=== PATIENT | female | born 1940 | race Caucasian/White ===

== ENCOUNTER 2024-01-02 19:53 | Inpatient (IN) | payer MEDICARE, OTHER, SELFPAY ==
[2024-01-02] VITALS (9 sets, daily range): BP systolic 98–159; BP diastolic 52–79; BMI 30.1; BMI 24.4
[2024-01-02 14:28] LABS: % Basophils 0.1 % (0-2); % Eosinophils 0.2 % (0-6); % Immature Granulocytes 0.4 % (0-0.5); % Monocytes 5.6 % (1.7-9.3); % Neutrophils 87.7 % (42.2-75.2); Absolute Immature Granulocytes 0.1 10^3/uL (0-0.05); Absolute Lymphocytes 0.7 10^3/uL (1.2-3.4); Absolute Monocytes 0.7 10^3/uL (0.1-0.6); Absolute Neutrophils 10.6 10^3/uL (1.4-6.5); Hemoglobin 10.9 g/dL (12.0-16.0); Mean Corp Hgb Conc. 32.1 g/dL (33.0-37.0); Mean Corpuscular Hgb 30.7 pg (27.0-31.0); Mean Corpuscular Volume 95.8 fL (81.0-99.0); Mean Platelet Volume 10.6 fL (7.4-10.4); Nucleated Red Blood Cells % 0 %; Platelet Count 237 10^3/uL (130-400); Red Blood Cell Count 3.55 10^6/uL (4.20-5.40); Red Cell Dist. Width 13.8 % (11.5-14.5); White Blood Cell Count 12.1 10^3/uL (4.8-10.8)
[2024-01-02 14:44] LABS: ALT (SGPT) < 10 U/L (0-35); AST (SGOT) 20 U/L (14-36); Alkaline Phosphatase 70 U/L (38-126); Blood Urea Nitrogen 48 mg/dl (7-17); Calcium 9.5 mg/dl (8.4-10.2); Carbon Dioxide 23 mmol/L (22-30); Chloride 110 mmol/L (98-107); Estimated Creatinine Clearance 23 ml/min; Glucose 111 mg/dl (70-99); Potassium 5.7 mmol/L (3.5-5.1); Sodium 139 mmol/L (135-145); Total Bilirubin 0.4 mg/dl (0.2-1.3); Total Protein 6.9 g/dl (6.3-8.2)
[2024-01-02 14:50] LABS: Urine Albumin 1+ (Neg - Trace); Urine Bilirubin Negative (Negative); Urine Character Very Cloudy (Clear); Urine Color Straw; Urine Glucose Negative (Negative); Urine Ketone Trace (Negative); Urine Leukocyte 2+ (Negative); Urine Nitrite Negative (Negative); Urine Occult Blood 2+ (Negative); Urine Urobilinogen Negative (Neg - 1+)
[2024-01-02 15:25] LABS: Urine Bacteria Few (Negative); Urine Red Blood Cell 0-2 /HPF (0-2); Urine Squamous Cell 16-20 /LPF (Few); Urine White Cell 70-80 /HPF (0-5)
[2024-01-02] MEDS: NSS 250 IV ×2 (16:00→21:16)
[2024-01-02 16:33] LABS: Troponin I 0.045 ng/ml
--- NOTE | 2024-01-02 17:10 | ED.GENMED ---
History of Present Illness
General
Chief Complaint: Abdominal Pain
Source: patient
Exam Limitations: dementia
Time Seen by Provider: 01/02/24 15:03
Nursing documentation reviewed up to this point in time: agreed with
Travel History
Have you had any contact with someone who has COVID-19?: No
Do you have any symptoms of coronavirus? Fever > 100 degrees, chills, cough, shortness of breath, sore throat, loss of taste or smell, muscle aches, or headache?: No
History of Present Illness
History of Present Illness:
83-year-old female with past medical history of dementia previous stroke hypertension hyperlipidemia presenting to the emergency department today with concerns of lower abdominal for multiple hours at her nursing facility was sent to the ER for
further assessment. She is unable to elaborate further as she has dementia.
Past History
Past History
ED Past Medical History: COPD, CVA (Right sided weakness, Expressive aphasi), HTN, Hypercholesterolemia, CT, Seizures and Other (Gi bleeding, Alzhemiers, Anemiam PVD, Chronic kidney disease)
ED Past Surgical History: Cardiac (Stents)
Social History
Tobacco: Non-smoker
Alcohol: None
Drug: None
Living: residential
Review of Systems
Review of Systems
Allergies reviewed?: Yes
All Other Systems: ROS reviewed and negative except as documented in HPI and ROS
Phy Exam
Physical Exam
Physical Exam:
GENERAL: Alert , in no apparent distress
EYE: pupils equal and reactive
NECK: Supple, no significant adenopathy.
ENT: o/p clr, mmm.
CARDIAC: Regular rate and rhythm .
LUNGS: Clear breath sounds bilaterally, no acute respiratory distress, no wheezes/rales/rhonchi
ABDOMEN: Abdominal pain diffusely to the lower abdomen nontender to the upper abdomen. No flank pain
NEUROLOGICAL: Alert and oriented, no focal neuro deficits
SKIN: Warm and dry, skin intact.
MUSCULOSKELETAL: No edema, well perfused.
PSYCH: Normal and appropriate interaction.
Course
Orders/Labs/Results
Orders:
Orders
01/02/24 14:21
Complete Blood Count/With Diff Urgent
Comprehensive Metabolic Panel Urgent
Magnesium Urgent
Comment: ADD ON
Urinalysis Reflex To Culture Urgent
Date Specimen was Collected: 01/02/24
Time Specimen was Collected: 14:17
Urine Microscopic Reflex Cult Urgent
Urine Culture Urgent
JAIMEE Source: U
Specimen Description:
Date Specimen was Collected: 01/02/24
Time Specimen was Collected: 14:17
01/02/24 15:18
ECG [Electrocardiogram (*1)] Urgent
Reason for Study: Chest Pain
EKG- Treatment ONCE
01/02/24 15:41
CT Abd/Pel (IV only)-DH only Urgent
Comment:
Reason For Exam: lower abd pain
01/02/24 15:48
0.9% Sodium Chloride 250 ml [Nss] 250 ml IV BOLUS
01/02/24 15:55
Troponin I Urgent
01/02/24 18:29
CefTRIAXone [Rocephin] 1,000 mg IV NOW STA
01/02/24 18:40
Troponin I Urgent
01/02/24 18:44
EKG [Electrocardiogram (*1)] Urgent
Reason for Study: Abdominal Pain
EKG- Treatment ONCE
01/02/24 18:47
Add On- LAB Urgent
Tests Added?: magnesium
Abnormal Lab Results
01/02/24 01/02/24
14:21 15:55
WBC 12.1 H 10^3/uL
(4.8-10.8)
RBC 3.55 L 10^6/uL
(4.20-5.40)
Hgb 10.9 L g/dL
(12.0-16.0)
Hct 34.0 L %
(37.0-47.0)
MCHC 32.1 L g/dL
(33.0-37.0)
MPV 10.6 H fL
(7.4-10.4)
Abs Immat Gran (auto) 0.1 H 10^3/uL
(0-0.05)
Absolute Neuts (auto) 10.6 H 10^3/uL
(1.4-6.5)
Absolute Lymphs (auto) 0.7 L 10^3/uL
(1.2-3.4)
Absolute Monos (auto) 0.7 H 10^3/uL
(0.1-0.6)
Neutrophils % 87.7 H %
(42.2-75.2)
Lymphocytes % 6.0 L %
(20.5-51.1)
Potassium 5.7 H mmol/L
(3.5-5.1)
Chloride 110 H mmol/L
(98-107)
BUN 48 H mg/dl
(7-17)
Creatinine 1.6 H mg/dL
(0.6-1.0)
Glucose 111 H mg/dl
(70-99)
Troponin I 0.045 H* ng/ml
Urine Ketones Trace A
(Negative)
Ur Occult Blood Reflex 2+ A
(Negative)
Leukocyte Esterase Rfl 2+ A
(Negative)
Urine WBC (Reflex) 70-80 A /HPF
(0-5)
Urine Bacteria (Reflex) Few A
(Negative)
Urine Albumin (Reflex) 1+ A
(Neg - Trace)
01/02/24 14:21
01/02/24 14:21
Vital Signs
Initial and Last Documented VS:
Initial Vital Signs
Temp Pulse Resp BP Pulse Ox
100.3 F 88 18 98/58 98
01/02/24 12:53 01/02/24 12:53 01/02/24 12:53 01/02/24 12:53 01/02/24 12:53
Last Documented Vital Signs
Temp Pulse Resp BP Pulse Ox
100.3 F 90 25 159/52 96
01/02/24 12:53 01/02/24 17:45 01/02/24 17:45 01/02/24 17:41 01/02/24 17:45
MDM/Problems Addressed
MDM/Problems Addressed:
84-year-old female presenting to the emergency department today with concerns of lower abdominal pain over the past few hours first noticed by staff at nursing facility. She claims have ongoing pain at this point denies any additional concerns. Of
note she initially was in sinus rhythm with normal conduction on initial monitor and went into a left bundle branch block and then out of it after a few hours. She denies any chest pain during that episode troponin was minimally elevated but lower
than her baseline. Blood count 12.[address] scan showing possible cystitis no emergent findings otherwise patient is urine potentially consistent with UTI patient with low-grade temperature and white count plan to admit for IV
antibiotics as well as further monitoring for additional lab abnormalities and EKG changes.
*Critical Care Note
Total Time (30-74mins, 75-104mins- exclusive of procedures): Not Applicable
ED Attending Note
-
Portions of this chart may have been created with voice recognition software.� Occasional wrong word or��sound alike� substitutions may have occurred due to the inherent limitations of voice recognition software.
Discharge Plan
Departure
Patient Disposition: Admit
Date of Disposition: 01/02/24
Time of Disposition: 19:13
Admit to: Telemetry
Admit to doctor: Kristen
Presentation/result/management discussed w/ accepting MD/DO: Hospitalist
Patient with high blood pressure during this ER visit?: No
Condition: Good
Covid-19: Not Applicable
Discharge Problem:
Acute UTI, Hyperkalemia
Prescriptions:
No Action
atorvastatin 40 MG tablet
40 mg PO HS
fenofibrate nanocrystallized 48 MG tablet
48 mg PO HS
acetaminophen 325 MG tablet
650 mg PO Q4HPRN PRN (Reason: mild pain,temp>99)
polyethylene glycol 3350 17 GRAMS powder in packet
17 grams PO DAILY
oxcarbazepine 300 MG tablet
600 mg PO BID
ergocalciferol (vitamin D2) 50,000 capsule
50,000 units PO .17 OF EACH MONTH
coal tar [Therapeutic Shampoo] 473 ML shampoo
1 applic topical WE
multivitamin with folic acid [Tab-A-Belgica] 1 TABLET tablet
1 tab PO DAILY
aspirin 81 MG tablet,chewable
81 mg PO DAILY
albuterol sulfate 1 PUFF HFA aerosol inhaler
2 puff inhalation R QID
trolamine salicylate-aloe vera [Aspercreme with Aloe] 85 GM cream
1 applic TP Q6HPRN PRN (Reason: NECK)
ferrous sulfate 325 MG tablet,delayed release (DR/EC)
325 mg PO DAILY
ipratropium-albuterol 3 ML solution for nebulization
3 ml inhalation R Q4HPRN PRN (Reason: wheeze) 0RF
prednisone 10 MG tablet
10 mg PO .TAPER Qty: 30 0RF
Rx Instructions:
Take 40mg daily x3days, 30mg daily x3days,
20mg daily x3days, 10mg daily x3days.
lisinopril 5 MG tablet
5 mg PO DAILY Qty: 0 0RF
Rx Instructions:
HOLD FOR SBP<100
hydrochlorothiazide 12.5 MG tablet
12.5 mg PO DAILY Qty: 0 0RF
Rx Instructions:
hold for SBP<100
Referrals:
Jase,John I., DO [Family Provider] -
Interventions
Interventions:
*Risk Screen - Suicide Last Done: 01/02/24 12:53
*General Assessment Last Done: 01/02/24 12:53
*Neglect/Abuse Screening Last Done: 01/02/24 12:53
VQ-Wypphw-Qviguxxvir Assessment Last Done: 01/02/24 13:28
Discharge Date and Time
Print Language: FAROESE
--- NOTE | 2024-01-02 19:14 | HPS.HSE ---
Family Physician
-
Family Physician: John Laguna
Chief Complaint
-
Abdominal pain and urinary symptoms.
History of Present Illness
This an 83-year-old female with extensive past medical history including dementia, CKD, aphasia, hypertension, COPD CVA with right-sided hemiplegia who presents from skilled nursing with abdominal pain and urinary symptoms.
Patient unable to provide additional history. History obtained from chart. Per records, she came in with concern of lower abdominal pain over the past few hours first noticed by staff at nursing facility. She claims have ongoing pain at this
point denies any additional concerns. Of note she initially was in sinus rhythm with normal conduction on initial monitor and went into a left bundle branch block and then out of it after a few hours. She denies any chest pain during that episode
troponin was minimally elevated but lower than her baseline.
Records indicate prior UTI with ESBL E.coli.
In ED she was in no acute distress, hemodynamically stable, but had a temp of 100.3. ECG SR rate 88 with PVCs. WBC 12.1 K 5.7, BUN 48, Cr 1.6, Gluc 111. U/A w/ pyuria and few bacteria. CTAP shows no acute intraabdominal process. Given
ceftriaxone 1g in ED and a 250 ml NS bolus.
Medical History
Past Medical History
Past Medical History: Reports CAD, CVA, Dementia and HTN
Additional Past Medical History:
CKD 4
Peripheral vascular disease
Past Surgical History: Reports None
Social History
Unable to obtain full social history at this time due to: Dementia
Tobacco: Non-smoker
Alcohol: None
Drug: None
Living: Correction
Employment: Retired
Family History
Family History: Not pertinent
Allergies / Home Medications
Allergies reflects when Allergies were last updated in [employer].
Home Medications with original date entered in [employer]
Allergy/Medication List:
Allergies
Allergy/AdvReac Type Severity Reaction Status Date / Time
No Known Drug Allergies Allergy Unknown Verified 09/19/21 09:14
Home Medications
atorvastatin 40 mg tablet 40 mg PO HS High cholesterol 09/07/10
fenofibrate nanocrystallized 48 mg tablet 48 mg PO HS High cholesterol 01/03/12
acetaminophen 325 mg tablet 650 mg PO Q4HPRN PRN mild pain,temp>99 03/28/19
coal tar 2.5 % shampoo (Therapeutic Shampoo) 1 applic topical WE dry scalp 03/28/19
ergocalciferol (vitamin D2) 1,250 mcg (50,000 unit) capsule 50,000 units PO .17TH OF EACH MONTH Supplement 03/28/19
multivitamin with folic acid 400 mcg tablet (Tab-A-Belgica) 1 tab PO DAILY Supplement 03/28/19
oxcarbazepine 300 mg tablet 600 mg PO BID Seizures 03/28/19
polyethylene glycol 3350 17 gram oral powder packet 17 grams PO DAILY Constipation 03/28/19
albuterol sulfate 90 mcg/actuation aerosol inhaler 2 puff inhalation R QID Lung/breathing issues 09/05/21
aspirin 81 mg chewable tablet 81 mg PO DAILY Blood clot prevention/tx 09/05/21
trolamine salicylate-aloe vera 10 % topical cream (Aspercreme with Aloe) 1 applic TP Q6HPRN PRN NECK 09/05/21
ferrous sulfate 325 mg (65 mg iron) tablet,delayed release 325 mg PO DAILY Supplement 09/19/21
hydrochlorothiazide 12.5 mg tablet 12.5 mg PO DAILY Blood pressure ##0 09/26/21
ipratropium 0.5 mg-albuterol 3 mg (2.5 mg base)/3 mL nebulization soln 3 ml inhalation R Q4HPRN PRN wheeze 09/26/21
lisinopril 5 mg tablet 5 mg PO DAILY Blood pressure ##0 09/26/21
prednisone 10 mg tablet 10 mg PO .TAPER #30 tabs 09/26/21
Review of Systems
-
Unable to obtain full review of systems at this time due to: Dementia
Constitutional: Reports No Symptoms
EENT: Reports No Symptoms
Respiratory: Reports No Symptoms
Cardiac: Reports No Symptoms
Abdomen/GI: Reports Abdominal Pain
: Reports No Symptoms
Musculoskeletal: Reports No Symptoms
Skin: Reports No Symptoms
Neurological: Reports No Symptoms
Endocrine: Reports No Symptoms
Hematologic/Lymphatic: Reports No Symptoms
Psych: Reports No Symptoms
Physical Exam
Vital Signs
Vital Signs
Temp Pulse Resp BP Pulse Ox
100.3 F 90 25 159/52 96
01/02/24 12:53 01/02/24 17:45 01/02/24 17:45 01/02/24 17:41 01/02/24 17:45
Physical Exam
General: No Apparent Distress and Obese
HEENT: NormoCephalic, Anicteric, Moist mucous membranes and PERRLA
Respiratory: Clear
Cardiac: S1/S2 and Regular Rhythm
Breast: Deferred by me
GI: Soft, Non Distended, Normal Bowel Sounds and Tender
Rectal: Deferred by Provider
Genito-urinary: No costovertebral tender
Musculoskeletal: No Clubbing, No Cyanosis and No Edema
Skin: Warm
Neuro: Awake and Oriented (oriented to person and place)
Hematologic/Lymphatic: No Lymphadenopathy
Psych: Calm and Apparent Dementia
Laboratory Results
-
01/02/24 14:21
01/02/24 14:21
Laboratory Results
Total Bilirubin 0.4 mg/dl (0.2-1.3) 01/02/24 14:21
AST 20 U/L (14-36) 01/02/24 14:21
ALT < 10 U/L (0-35) 01/02/24 14:21
Alkaline Phosphatase 70 U/L (38-126) 01/02/24 14:21
Troponin I 0.045 ng/ml H* 01/02/24 15:55
Data Reviewed
-
CT Scan: Report Reviewed by me
Medical Tests (Nuc Med, Echo, EKG etc): Image Personally Visualized and interpreted
Lab Data: Labs Reviewed by me
Old Records: Reviewed
Impression/Plan
-
IMPRESSION:
PLAN:
1. UTI - + u/a, h/o recurrent UTI with ESBL E.coli. Low grade fever and leuokocytosis. CT a/p unremarkable. Hemodynamically stable.
- admit to telemetry
- urine cultures sent
- ertapenem given prior cultures
2. LBBB - Transient QRS widening. Possibly rate related. No acute ST or T wave changes. Trop chronically elevated. 0.098 in 2021 and higher prior, now 0.04 ->0.06. Concentric LVH, EF 70% on prior echo. No chest pain, palpitations but patient is
poor historian
- telemetry
- aspirin 324 x 1 then daily
- continue statin
- trend trop till stable
- cardiology consultation
3. Hyperkalemia - Mild Hyperkalemia to 5.7. EVELINE on CKD, on lisinopril.
- hold lisinopril
- hydration with NS at 60 ml/hr overnight
- repeat K in 6 hours with trop, temporize if higher
4. EVELNIE - Suspect prerenal with marked elevation in BUN
- iv fluids as above,
- hold lisinopril & hctz
- avoid nephrotoxins (s/p contrast in ED)
5.HTN
- holding lisinopril and hctz
- hydralazine prn
DVT PPX - heparin sq q 8
Code status - DNR
[2024-01-02 19:31] LABS: Magnesium 2.4 mg/dl (1.6-2.3)
[2024-01-02] MEDS: ROCEPHIN 1000 MG IV (19:33)
[2024-01-02] MEDS: TYLENOL 650 MG PO (21:16)
[2024-01-02] MEDS: LOW STRENGTH ASPIRIN 324 MG PO (21:16)
[2024-01-02] MEDS: ProAIR HFA INHALER INH (22:46)
[2024-01-02] MEDS: TRICOR 48 MG PO (22:52)
[2024-01-02] MEDS: NSS 1000 IV (22:52)
[2024-01-02] MEDS: TRILEPTAL 600 MG PO (22:52)
[2024-01-02] MEDS: LIPITOR 40 MG PO (22:52)
[2024-01-02] MEDS: INVANZ 60 MG IV (23:53)
[2024-01-02] MEDS: HEPARIN 5000 UNITS SC (23:54)
[2024-01-02 23:57] LABS: Blood Urea Nitrogen 45 mg/dl (7-17); Carbon Dioxide 19 mmol/L (22-30); Chloride 114 mmol/L (98-107); Estimated Creatinine Clearance 25 ml/min; Glucose 121 mg/dl (70-99); Potassium 4.8 mmol/L (3.5-5.1); Sodium 139 mmol/L (135-145); eGFR 34.58
[2024-01-03 00:09] LABS: Troponin I 0.062 ng/ml
[2024-01-03 03:29] VITALS: BP 104/57
[2024-01-03 07:59] VITALS: BP 169/83
[2024-01-03] MEDS: ProAIR HFA INHALER 2 PUFF INH ×4 (08:11→19:47)
[2024-01-03 08:17] LABS: Hematocrit 29.4 % (37.0-47.0); Hemoglobin 9.6 g/dL (12.0-16.0); Mean Corp Hgb Conc. 32.7 g/dL (33.0-37.0); Mean Corpuscular Volume 94.8 fL (81.0-99.0); Mean Platelet Volume 10.9 fL (7.4-10.4); Platelet Count 217 10^3/uL (130-400); Red Cell Dist. Width 13.8 % (11.5-14.5); White Blood Cell Count 7.8 10^3/uL (4.8-10.8)
[2024-01-03] MEDS: FEOSOL 325 MG PO (08:52)
[2024-01-03] MEDS: HEPARIN 5000 UNITS SC ×2 (08:53→15:31)
[2024-01-03] MEDS: LOW STRENGTH ASPIRIN 81 MG PO (08:53)
[2024-01-03 08:56] LABS: Blood Urea Nitrogen 44 mg/dl (7-17); Calcium 9.1 mg/dl (8.4-10.2); Carbon Dioxide 21 mmol/L (22-30); Chloride 114 mmol/L (98-107); Creatine Phosphokinase 49 U/L (30-135); Estimated Creatinine Clearance 23 ml/min; Glucose 84 mg/dl (70-99); Potassium 4.8 mmol/L (3.5-5.1); Sodium 140 mmol/L (135-145)
--- NOTE | 2024-01-03 09:13 | CON.CAR ---
Consultation
Consultation Request
Date/Time Consultation Requested: 01/03/2024
Date/Time Consultation Performed: 01/03/2024
Reason for Consultation: Elevated troponin
Medical History
-
Chief Complaint: Urinary tract infection
History of Present Illness:
83-year-old female with extensive past medical history including dementia, CKD, aphasia, hypertension, COPD CVA with right-sided hemiplegia who presents from [facility] with abdominal pain and urinary symptoms.
Patient unable to provide additional history. History obtained from chart. Per records, she came in with concern of lower abdominal pain over the past few hours first noticed by staff at nursing facility. She claims have ongoing pain at this
point denies any additional concerns. Of note she initially was in sinus rhythm with normal conduction on initial monitor and went into a left bundle branch block and then out of it after a few hours. She denies any chest pain during that episode
troponin was minimally elevated but lower than her baseline.
Records indicate prior UTI with ESBL E.coli. CTAP shows no acute intraabdominal process. Given ceftriaxone 1g in ED and a 250 ml NS bolus.
Patient is being admitted for UTI and infection. However troponin was checked that shows at 0.06. Normal her troponin runs around 0.08-0.1. Unchanged from September 2021.
Last echo on the chart was from 09/19/2021, that showed LVEF of 70 to 75% with concentric LVH and mild aortic stenosis.
Past Medical History
Past Medical History: CAD (Unclear), CVA, HTN, Renal Failure (CKD 4), Valvular Disease (Mild aortic stenosis in 2021), Psychiatric (Dementia) and Other (Peripheral vascular disease)
Social History
Tobacco: Non-Smoker
Alcohol: None
Living: Jail
Family History
Family History: Reviewed & Not Pertinent
Allergies / Home Medications
Allergy/AdvReac Type Severity Reaction Status Date / Time
No Known Drug Allergies Allergy Unknown Verified 09/19/21 09:14
�Medication �Instructions �Recorded �Confirmed �Type
atorvastatin 40 mg tablet 40 mg PO HS High cholesterol 09/07/10 01/02/24 History
fenofibrate nanocrystallized 48 mg 48 mg PO HS High cholesterol 01/03/12 01/02/24 History
tablet
acetaminophen 325 mg tablet 650 mg PO Q4HPRN PRN mild 03/28/19 01/02/24 History
pain,temp>99
coal tar 2.5 % shampoo 1 applic topical WE dry scalp 03/28/19 01/02/24 History
(Therapeutic Shampoo)
ergocalciferol (vitamin D2) 1,250 50,000 units PO .17TH OF EACH 03/28/19 01/02/24 History
mcg (50,000 unit) capsule MONTH Supplement
oxcarbazepine 300 mg tablet 600 mg PO BID Seizures 03/28/19 01/02/24 History
albuterol sulfate 90 mcg/actuation 2 puff inhalation R QID 09/05/21 01/02/24 History
aerosol inhaler Lung/breathing issues
aspirin 81 mg chewable tablet 81 mg PO DAILY Blood clot 09/05/21 01/02/24 History
prevention/tx
trolamine salicylate-aloe vera 10 1 applic TP Q6HPRN PRN NECK 09/05/21 01/02/24 History
% topical cream (Aspercreme with
Aloe)
ferrous sulfate 325 mg (65 mg 325 mg PO DAILY Supplement 09/19/21 01/02/24 History
iron) tablet,delayed release
hydrochlorothiazide 12.5 mg tablet 12.5 mg PO DAILY Blood pressure ##0 09/26/21 01/02/24 Rx
lisinopril 5 mg tablet 5 mg PO DAILY Blood pressure ##0 09/26/21 01/02/24 Rx
ascorbic acid (vitamin C) 500 mg 500 mg PO DAILY 01/02/24 01/02/24 History
capsule
docusate sodium 100 mg capsule 200 mg PO DAILY 01/02/24 01/02/24 History
guaifenesin 400 mg tablet 400 mg PO Q4H PRN cough 01/02/24 01/02/24 History
loperamide 2 mg capsule 2 mg PO Q4H PRN diarrhea 01/02/24 01/02/24 History
(Anti-Diarrheal (loperamide))
trolamine salicylate 10 % topical 1 applic topical QID PRN pain 01/02/24 01/02/24 History
cream (Aspercreme)
Review of Systems
-
Unable to obtain full review of systems at this time due to: Dementia
History Source: Patient and Jail
Physical Exam
Vital Signs
Temp Pulse Resp BP Pulse Ox
97.8 F 76 18 169/83 96
01/03/24 07:59 01/03/24 08:15 01/03/24 08:15 01/03/24 07:59 01/03/24 08:15
Lab Results
01/03/24 07:46
01/03/24 07:46
Troponin I 0.062 ng/ml H* 01/02/24 23:36
Physical Exam
General: Well Developed, Well Nourished and No Apparent Distress
HEENT: Normocephalic and Moist Mucous Membranes
Respiratory: Rhonchi and Non Labored Respirations
Cardiac: S1/S2, Regular Rhythm and Murmur
GI: Soft, Non Distended and Normal Bowel Sounds
Musculoskeletal: No Clubbing and No Cyanosis
Neuro: Awake and Other (Contracture of the hands)
Impression / Plan
-
Troponin leak
-Mild troponin leak noted in a patient with chronic kidney disease
-Creatinine is 1.6, troponin is 0.06. Troponin this morning is 0.04�stable
-No chest pain reported by the patient. Patient does have dementia but denies any acute pain any where
-EKG is stable with normal sinus rhythm and frequent PVCs
-Echo was reviewed from 2021. Patient had mild AAS at that time. Physical examination today shows mild to moderate with systolic murmur
-Repeat echo in the morning
-Troponin leak is non- FL and no sign of acute coronary syndrome noted.
Transient left bundle branch block
-Possible rate related bundle branch block.
-EKG shows normal sinus rhythm with PVCs.
-Repeat echo in the morning.
Hypertension
-Holding lisinopril and hydrochlorothiazide especially with renal insufficiency
Hyperkalemia
Likely related to renal insufficiency
Data Reviewed
-
EKG: Tracing Personally Visualized and interpreted
Radiology: Report Reviewed by me
Medical Tests (Nuc Med, Echo etc): Image Personally Visualized and interpreted
Labs: Labs Reviewed by me, Discussed with Physician, Discussed with Nurse, Discussed with Patient and Discussed with Family
Old Records: Reviewed
Total Time Spent with Patient (in minutes): 75
[2024-01-03] MEDS: TRILEPTAL 600 MG PO ×2 (09:33→20:22)
[2024-01-03 10:32] LABS: Troponin I 0.043 ng/ml
[2024-01-03 11:08] VITALS: BP 138/68
[2024-01-03 15:25] VITALS: BP 115/68
[2024-01-03] MEDS: NSS 1000 IV (15:30)
--- NOTE | 2024-01-03 17:06 | W.PN.HOSP.TC ---
Today's Communication/Plan
-
Repeat echo tomorrow
Appreciate cardiology
Continue to follow Cr/BMP
UTI treatment - ABx, follow cultures
Assessment / Plan
Assessment / Plan
Physical Exam
General: No Apparent Distress and Obese
HEENT: Normocephalic, Moist mucous membranes
Respiratory: Clear to Auscultation Bilaterally
Cardiac: S1/S2 and Regular Rhythm
GI: Soft, Non Distended, Normal Bowel Sounds and Tender
Musculoskeletal: No Cyanosis and No Edema
Skin: Warm. Dry.
Neuro: Awake and Oriented (oriented to person and place)
Hematologic/Lymphatic: No Lymphadenopathy
Psych: Calm and Apparent Dementia

CT OF THE ABDOMEN/PELVIS WITH IV CONTRAST, PER RADIOLOGIST'S REPORT:
'IMPRESSION: No acute pathology of the abdomen or pelvis identified.
Tiny pericardial effusion versus pericardial thickening. New.
Moderate hiatal hernia. Stable.
Bilateral too small to characterize hypodense renal lesions likely benign cysts.
Small fat-containing umbilical hernia. Stable. No evidence of incarceration or strangulation
Mild diffuse bladder wall thickening likely at least partially due to limited distention. Cystitis and bladder outlet obstruction not excluded. New.
Calcified uterine fibroids. Stable.
Compression fractures. Stable. Nonacute nonunited right hip fracture. Stable'

Assessment/Plan
#UTI - + u/a, h/o recurrent UTI with ESBL E.coli. Fever and leukocytosis on admission. CT a/p unremarkable. Hemodynamically stable.
#Mild Diffuse Bladder Wall Thickening on CT Imaging
- Monitor on telemetry
- Urine cultures sent
- Continue Ertapenem given prior cultures
#LBBB - Transient QRS widening. Possibly rate related. No acute ST or T wave changes. Trop chronically elevated. 0.098 in 2021 and higher prior, now 0.04 ->0.06. Concentric LVH, EF 70% on prior echo. No chest pain, palpitations but patient is
poor historian
- telemetry
- aspirin 324 x 1 then daily
- continue statin
- trend trop till stable
- cardiology consultation, recommendations appreciated
- Repeat echocardiogram on 01/04/24, as per cardiology
#Troponin Leak
#Tiny Pericardial Effusion on CT Imaging
- Checking repeat echo on 01/04/24 as per cardiology for troponin leak
#Hyperkalemia - Mild Hyperkalemia to 5.7. EVELINE on CKD, on lisinopril.
- hold lisinopril
- hydration with NS at 60 ml/hr
- AM BMP
#EVELINE - Suspect prerenal with marked elevation in BUN
- iv fluids as above,
- hold lisinopril & hctz
- avoid nephrotoxins (s/p contrast in ED)
#Bilateral too small to characterize hypodense renal lesions likely benign cysts
-Seen on CT imaging
#Hypertension
- holding lisinopril and hctz
- hydralazine prn
#Moderate Hiatal Hernia on CT Imaging
#Small fat-containing umbilical hernia on CT Imaging
-Not strangulated or incarcerated
-Should get outpatient surgery eval
#Calcified uterine fibroids on CT Imaging
#Compression fractures
#Nonacute nonunited right hip fracture
DVT Prophylaxis - Heparin sq q 8
Code status - DNR
Anticipated Discharge: 24 - 48 hours
Subjective/Interval History
-
Date of Service: January 03, 2024
Patient was seen and examined. She reported the same lower abdominal pain.
Objective Data
-
Labs:
Laboratory Results
01/03/24
07:46
WBC 7.8
Hgb 9.6 L
Hct 29.4 L
Plt Count 217
Sodium 140
Potassium 4.8
Chloride 114 H
Carbon Dioxide 21 L
BUN 44 H
Creatinine 1.6 H
Glucose 84
Calcium 9.1
Vital Signs:
Vital Signs
Temp Pulse Resp BP Pulse Ox
97.7 F 66 16 115/68 94
01/03/24 15:25 01/03/24 15:52 01/03/24 15:52 01/03/24 15:25 01/03/24 15:52
[2024-01-03 19:38] VITALS: BP 135/73
[2024-01-03] MEDS: LIPITOR 40 MG PO (20:23)
[2024-01-03] MEDS: TRICOR 48 MG PO (20:23)
[2024-01-03 23:24] VITALS: BP 117/52
[2024-01-04] MEDS: HEPARIN 5000 UNITS SC ×3 (00:34→15:48)
[2024-01-04] MEDS: INVANZ 60 MG IV (00:34)
[2024-01-04 03:29] VITALS: BP 122/59
[2024-01-04 06:22] LABS: % Basophils 0.4 % (0-2); % Eosinophils 6.1 % (0-6); % Immature Granulocytes 0.4 % (0-0.5); % Lymphocytes 32.2 % (20.5-51.1); % Monocytes 6.7 % (1.7-9.3); % Neutrophils 54.2 % (42.2-75.2); Absolute Eosinophils 0.3 10^3/uL (0-0.7); Absolute Lymphocytes 1.6 10^3/uL (1.2-3.4); Absolute Monocytes 0.3 10^3/uL (0.1-0.6); Absolute Neutrophils 2.8 10^3/uL (1.4-6.5); Hematocrit 27.1 % (37.0-47.0); Hemoglobin 8.3 g/dL (12.0-16.0); Mean Corp Hgb Conc. 30.6 g/dL (33.0-37.0); Mean Corpuscular Hgb 30.6 pg (27.0-31.0); Mean Platelet Volume 11.1 fL (7.4-10.4); Nucleated Red Blood Cells % 0 %; Platelet Count 188 10^3/uL (130-400); Red Blood Cell Count 2.71 10^6/uL (4.20-5.40); Red Cell Dist. Width 13.9 % (11.5-14.5); White Blood Cell Count 5.1 10^3/uL (4.8-10.8)
[2024-01-04 06:45] LABS: Blood Urea Nitrogen 44 mg/dl (7-17); Calcium 8.7 mg/dl (8.4-10.2); Carbon Dioxide 21 mmol/L (22-30); Chloride 117 mmol/L (98-107); Estimated Creatinine Clearance 21 ml/min; Glucose 88 mg/dl (70-99); Potassium 4.6 mmol/L (3.5-5.1); Sodium 142 mmol/L (135-145); eGFR 27.78
[2024-01-04 07:00] VITALS: BP 147/73
[2024-01-04] MEDS: ProAIR HFA INHALER 2 PUFF INH ×4 (07:51→19:21)
[2024-01-04] MEDS: TRILEPTAL 600 MG PO (07:55)
[2024-01-04] MEDS: FEOSOL 325 MG PO (07:55)
[2024-01-04] MEDS: LOW STRENGTH ASPIRIN 81 MG PO (07:55)
[2024-01-04] MEDS: NSS 1000 IV (08:07)
--- NOTE | 2024-01-04 09:02 | W.PN.CD ---
Addendum entered and electronically signed by Jared Navarro MD 01/04/24 09:07:
-
-
Given comorbid conditions and the fact that she will not be a candidate for intervention of valvular we will not pursue echo today.
We will sign off.
-
-
Original Note:
Today's Communication / Plan
-
Echo today
Cardiology will sign off
Impression / Plan
-
Non NE myocardial injury
- No plans for further eval/treatment beyond the echo ordered
Aortic stenosis
- For echo today
- Unlikely to be a candidate for intervention
Transient left bundle branch block
-Possible rate related bundle branch block.
PVCs
Hypertension
Hyperkalemia, resolved
Anemia
CKD
Physical Exam
Vital Signs/Labs
Vital Signs
Temp Pulse Resp BP Pulse Ox
97.8 F 73 16 147/73 97
01/04/24 07:00 01/04/24 07:54 01/04/24 07:54 01/04/24 07:00 01/04/24 07:54
01/03/24 01/04/24 01/05/24
06:59 06:59 06:59
Actual Weight 64.4 kg
01/04/24 05:45
01/04/24 05:45
Magnesium 2.4 mg/dl (1.6-2.3) H 01/02/24 14:21
LAB Results
01/02/24 01/02/24 01/02/24
15:55 18:40 23:36
Troponin I 0.045 H* 0.060 H* D 0.062 H*
01/03/24
07:46
Troponin I 0.043 H*
Physical Exam
Constitutional: No acute distress
Cardiovascular: Rhythm & rate is regular, Pedal edema is absent and Systolic murmur present
Respiratory: Respiratory effort normal and Lungs clear to auscul.
GI: Soft and Distention absent
Data Reviewed
-
Date of Service: January 04, 2024
--- NOTE | 2024-01-04 09:19 | W.PN.HOSP.TC ---
Addendum entered and electronically signed by Rizwana Gay MD 01/05/24 07:48:
# Sepsis POA with UTI
Original Note:
Today's Communication/Plan
-
see A/P
Assessment / Plan
Assessment / Plan
CT AP:
No acute pathology of the abdomen or pelvis identified.
Tiny pericardial effusion versus pericardial thickening. New.
Moderate hiatal hernia. Stable.
Bilateral too small to characterize hypodense renal lesions likely benign cysts.
Small fat-containing umbilical hernia. Stable. No evidence of incarceration or strangulation
Mild diffuse bladder wall thickening likely at least partially due to limited distention. Cystitis and bladder outlet obstruction not excluded. New.
Calcified uterine fibroids. Stable.
Compression fractures. Stable. Nonacute nonunited right hip fracture. Stable
A/P:
# Abdominal pain, resolved
CT AP unrevealing, report as above
# UTI
Follow Urine and blood cultures
Continue Ertapenem given prior culture with ESBL E Coli
# LBBB, Possible rate related bundle branch block.
No chest pain
No acute ST or T wave changes.
Trop chronically elevated.
Concentric LVH, EF 70% on prior echo.
cardiology consulted, no need to further investigate, signed off
# Mild Hyperkalemia, resolved
STIPPLER lisinopril on hold
# EVELINE - Suspect prerenal and related to UTI
SCr 1.6 on admission, today at 1.8
s/p gentle IVF
hold STIPPLER lisinopril & hctz
avoid nephrotoxins (s/p contrast in ED)
Monitor SCr
# Hypertension
Start Coreg low dose 3.125 BID
hold STIPPLER lisinopril & hctz
Cont IV hydralazine prn
# Bilateral too small to characterize hypodense renal lesions likely benign cysts noted on CT AP
# Moderate Hiatal Hernia on CT Imaging
# Small fat-containing umbilical hernia on CT Imaging
# Calcified uterine fibroids on CT Imaging
# Compression fractures
# Nonacute nonunited right hip fracture
PT OT eval
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
Cont current soft and bite size diet , SPL eval
DVT Prophylaxis - Heparin sq q 8
Code status - DNR
Called sister to update, called several times, calls not answered
Anticipated Discharge: 24 - 48 hours
Subjective/Interval History
-
Date of Service: January 04, 2024
Objective Data
-
Labs:
Laboratory Results
01/04/24
05:45
WBC 5.1
Hgb 8.3 L
Hct 27.1 L
Plt Count 188
Sodium 142
Potassium 4.6
Chloride 117 H
Carbon Dioxide 21 L
BUN 44 H
Creatinine 1.8 H
Glucose 88
Calcium 8.7
Vital Signs:
Vital Signs
Temp Pulse Resp BP Pulse Ox
36.6 C 73 16 147/73 97
01/04/24 07:00 01/04/24 07:54 01/04/24 07:54 01/04/24 07:00 01/04/24 07:54
I&O
01/03/24 01/04/24 01/05/24
06:59 06:59 06:59
Intake Total 1200 / 1200
Balance 1200 / 1200
Review of Systems
-
Unable to obtain full review of systems at this time due to: Dementia
Physical Exam
-
General: Well Developed, Well Nourished, No Apparent Distress, Comfortable, Conversant (slurred speech, slow to respond ) and Appears Chronically Ill; Negative Respiratory Distress
HEENT: Normocephalic, Atraumatic, Nose Appears Normal and Ears Appear Normal; Negative Oxygen
Respiratory: Clear to Auscultation and Non Labored Respirations; Negative Accessory Resp Muscle Use
Cardiac: Regular Rhythm and S1/S2
GI: Soft, Nontender, Nondistended and Normal Bowel Sounds
Musculoskeletal: Other (RUE contracture)
Skin: Warm and Dry
Neuro: Awake; Negative AO x 3
Psych: Calm and Apparent Dementia
Data Reviewed
-
CT Scan: Report Reviewed by me
Labs: Labs Reviewed by me
[2024-01-04 11:00] VITALS: BP 154/89
[2024-01-04] MEDS: COREG 3.125 MG PO ×2 (11:05→21:54)
--- NOTE | 2024-01-04 11:50 | PTOTSP ---
chart reviewed, noted pt is a residential resident at [facility]. at baseline, pt has assistance with transfers, dressing, toileting; pt is able to feed self. per RN, pt is feeding self here. no acute OT goals noted, will sign off.
--- NOTE | 2024-01-04 13:52 | PTCARENOTE ---
static overlay applied to bed, continue with incont care and Q 2 turns
--- NOTE | 2024-01-04 14:50 | PTOTSP ---
Speech Language Pathology
Pt seen for clinical bedside swallow evaluation. Previous VSEs completed 09/26/21, 04/04/19, and 01/06/12 with recommendations for dysphagia 2/nectar-thick liquids, dysphagia 1/nectar-thick liquids, and dysphagia 1/nectar-thick liquids respectively.
Pt currently on mechanical soft solids and mildly thick liquids at facility.
P.O. trials of puree, regular solids, thin liquids, and mildly thick liquids provided. Prolonged mastication of regular solids given limited dentition. Slight increase in WOB with liquids. No overt coughing.
Recommend:
(1) Downgrade to baseline diet of IDDSI Level 6 (Soft/Bite-Sized) and Mildly Thick Liquids
(2) Consider VSE if diet upgrade to be considered (can also be considered as OP)
(3) Aspiration precautions: sit upright, slow rate, set-up assist
(4) Allow sips of water post oral care given supervision between meals per Aspiration Risk Hydration Protocol (ARHP)
(5) Meds as tolerated
(6) ROPE MAKER to continue to follow
--- NOTE | 2024-01-04 14:50 | CM ---
Pt from [facility] - LTC
Pt confused, disoriented
Pt is confused at baseline, wheel chair bound, assist of 1
Plan is to return to [facility] - be hold
Plan - anticipate return to [facility] when medically stable
[2024-01-04 15:00] VITALS: BP 151/60
[2024-01-04] MEDS: TRILEPTAL 300 MG PO (21:54)
[2024-01-04] MEDS: LIPITOR 40 MG PO (21:54)
[2024-01-04 23:22] VITALS: BP 115/43
[2024-01-05] MEDS: HEPARIN 5000 UNITS SC ×3 (00:26→16:15)
[2024-01-05] MEDS: INVANZ 55 MG IV (00:27)
[2024-01-05] MEDS: FLUSH (NSS) 2 FLUSH IV (00:29)
[2024-01-05 05:58] LABS: Hematocrit 27.3 % (37.0-47.0); Hemoglobin 8.7 g/dL (12.0-16.0); Mean Corp Hgb Conc. 31.9 g/dL (33.0-37.0); Mean Corpuscular Hgb 31.2 pg (27.0-31.0); Mean Corpuscular Volume 97.8 fL (81.0-99.0); Mean Platelet Volume 10.8 fL (7.4-10.4); Platelet Count 200 10^3/uL (130-400); Red Blood Cell Count 2.79 10^6/uL (4.20-5.40); Red Cell Dist. Width 13.9 % (11.5-14.5); White Blood Cell Count 5.7 10^3/uL (4.8-10.8)
[2024-01-05 06:36] LABS: Blood Urea Nitrogen 56 mg/dl (7-17); Calcium 8.9 mg/dl (8.4-10.2); Carbon Dioxide 18 mmol/L (22-30); Chloride 114 mmol/L (98-107); Estimated Creatinine Clearance 19 ml/min; Glucose 94 mg/dl (70-99); Magnesium 2.5 mg/dl (1.6-2.3); Potassium 5.3 mmol/L (3.5-5.1); Sodium 141 mmol/L (135-145); eGFR 24.48
[2024-01-05] MEDS: ProAIR HFA INHALER 2 PUFF INH ×4 (07:18→19:30)
--- NOTE | 2024-01-05 07:32 | PN.CDI ---
CDI
- -
CDI:
Physician Documentation Request
Admit Date: 01/02/24 19:53
Dear Doctor Victor Hugo,
Please review the following and provide your response in the progress notes.
Clinical Indicators:
ED, 01/01
#Acute UTI, Hyperkalemia
Initial Vital Signs
Temp Pulse Resp BP Pulse Ox
100.3 F 90 25 159/52 96
01/02/24 12:53 01/02/24 17:45 01/02/24 17:45 01/02/24 17:41 01/02/24 17:45
H+P, 01/01
#1. UTI - + u/a, h/o recurrent UTI with ESBL E.coli.
#...Low grade fever and leuokocytosis.
#... EVELINE - Suspect prerenal with marked elevation in BUN
Laboratory Tests
01/02/24 01/03/24 01/04/24
14:21 07:46 05:45
WBC 12.1 H 7.8 5.1
01/05/24
05:41
WBC 5.7
Please clarify which of the following most accurately describes the status of the patient's infection:
Severe Sepsis, POA (please specify, ie as evidenced by fever/leukocytosis/tachycardia/tachypnea, EVELINE, etc.)
Sepsis, POA, (please specify)
Localized Infection Only, Without Systemic Illness
- indicate the site/source, such as UTI, pneumonia etc.
Other
Sepsis
- Systemic manifestations of infection, with 2 or more SIRS criteria which include:
- Fever >100.4 degrees F or hypothermia < 96.8 degrees F
- Leukocytosis - WBC > 12,000 or leukopenia - WBC < 4,000 or > 10% bands
- Tachycardia > 90 beats per minute
- Tachypnea - RR > 20 breaths per minute or PaCO2 , 32mmHg
Source: Merck Manual 2013
- Indicate the known or suspected organism
- Indicate the known or suspected underlying infection, such as UTI, pneumonia or cellulitis
Severe Sepsis
- Sepsis with associated acute organ dysfunction, such as renal or respiratory failure
- Documentation should indicate the association between the sepsis and the organ dysfunction
Use of terms such as suspected, likely, concern for, or probable (associated with a specific diagnosis that is being evaluated, monitored, or treated as if it exists) are acceptable and can be coded in the inpatient setting, when documented at the
time of discharge.
Thank you,
Veena Marie
CDI Specialist
Please use your independent medical judgment in providing your response.
--- NOTE | 2024-01-05 07:45 | PN.CDI ---
CDI
- -
CDI:
Physician Documentation Request
Admit Date: 01/02/24 19:53
Dear Doctor Victor Hugo,
Please review the following and provide your response in the progress notes.
Clinical Indicators:
Cardiology consult, 01/02
#Reason for Consultation: Elevated troponin
#-Troponin leak is non- NJ and no sign of acute coronary syndrome noted.
Laboratory Tests
01/02/24 01/02/24 01/02/24
15:55 18:40 23:36
Troponin I 0.045 H* 0.060 H* D 0.062 H*
01/03/24
07:46
Troponin I 0.043 H*
Based on the above and your clinical assessment, please clarify in the progress notes, the appropriate diagnosis, if significant, that supports the above abnormalities and additional evaluation, monitoring and/or treatment rendered:
Nonischemic Myocardial Injury
Abnormal lab value, clinically insignificant
Other
Use of terms such as suspected, likely, concern for, or probable (associated with a specific diagnosis that is being evaluated, monitored, or treated as if it exists) are acceptable and can be coded in the inpatient setting, when documented at the
time of discharge.
Thank you,
Veena Marie RN BSN CCDS
CDI Specialist
please contact via tiger text
Please use your independent medical judgment in providing your response.
[2024-01-05 08:00] VITALS: BP 116/74
--- NOTE | 2024-01-05 08:40 | PTCARENOTE ---
pt's apical irregular and slow, obtaining EKG, contacting attending putting pt back on tele
--- NOTE | 2024-01-05 08:45 | W.PN.HOSP.TC ---
Today's Communication/Plan
-
see A/P
Assessment / Plan
Assessment / Plan
CT AP:
No acute pathology of the abdomen or pelvis identified.
Tiny pericardial effusion versus pericardial thickening. New.
Moderate hiatal hernia. Stable.
Bilateral too small to characterize hypodense renal lesions likely benign cysts.
Small fat-containing umbilical hernia. Stable. No evidence of incarceration or strangulation
Mild diffuse bladder wall thickening likely at least partially due to limited distention. Cystitis and bladder outlet obstruction not excluded. New.
Calcified uterine fibroids. Stable.
Compression fractures. Stable. Nonacute nonunited right hip fracture. Stable
A/P:
# Abdominal pain, resolved
CT AP unrevealing, report as above
# UTI
Urine Cx with Klebsiella, sensitivity reviewed
blood cultures negative
Change Ertapenem to ceftriaxone
# LBBB, Possible rate related bundle branch block.
# then EKG noted bigeminy, ruled out A fib per cardiology
No chest pain
No acute ST or T wave changes.
Trop chronically elevated.
Concentric LVH, EF 70% on prior echo.
cardiology consulted, no need to further investigate, signed off
# Mild Hyperkalemia, resolved
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
# EVELINE, now suspect related to Contrast-induced nephropathy
She received CT AP with IV contrast on admission
SCr 1.6 on admission, today at 2.0
resume gentle IVF
hold [employer] lisinopril & HCTZ
Cont to closely monitor SCr
# Hypertension
Started Coreg low dose 3.125 BID, DC due to slow HR
hold [employer] lisinopril & HCTZ with EVELINE
Monitor BP (currently stable) off of ATC BP meds
IV hydralazine prn
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
# Pt appears bed bound
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
Cont soft and bite size diet but change thin to mildly thick liquid per SPL eval
# Bilateral too small to characterize hypodense renal lesions likely benign cysts noted on CT AP
# Moderate Hiatal Hernia on CT Imaging
# Small fat-containing umbilical hernia on CT Imaging
# Calcified uterine fibroids on CT Imaging
# Compression fractures
# Nonacute nonunited right hip fracture
DVT Prophylaxis - Heparin sq q 8
Code status - DNR
DW Card
DW RN
total time spent 51 min
Anticipated Discharge: 24 - 48 hours
Subjective/Interval History
-
Date of Service: January 05, 2024
Objective Data
-
Labs:
Laboratory Results
01/05/24
05:41
WBC 5.7
Hgb 8.7 L
Hct 27.3 L
Plt Count 200
Sodium 141
Potassium 5.3 H
Chloride 114 H
Carbon Dioxide 18 L
BUN 56 H
Creatinine 2.0 H
Glucose 94
Calcium 8.9
Vital Signs:
Vital Signs
Temp Pulse Resp BP Pulse Ox
36.2 C 56 15 115/43 96
01/04/24 23:22 01/05/24 07:20 01/05/24 07:20 01/04/24 23:22 01/05/24 07:20
I&O
01/04/24 01/05/24 01/06/24
06:59 06:59 06:59
Intake Total 1200 / 1200 595 / 595
Balance 1200 / 1200 595 / 595
Review of Systems
-
Unable to obtain full review of systems at this time due to: Dementia
Physical Exam
-
General: Well Developed, Well Nourished, No Apparent Distress, Comfortable, Conversant and Appears Chronically Ill; Negative Respiratory Distress
HEENT: Normocephalic, Atraumatic, Nose Appears Normal and Ears Appear Normal; Negative Oxygen
Respiratory: Clear to Auscultation and Non Labored Respirations; Negative Accessory Resp Muscle Use
Cardiac: Regular Rhythm and S1/S2
GI: Soft, Nontender, Nondistended and Normal Bowel Sounds
Musculoskeletal: Other (RUE contracture)
Skin: Warm and Dry
Neuro: Awake; Negative AO x 3
Psych: Calm and Apparent Dementia
Data Reviewed
-
CT Scan: Report Reviewed by me
Labs: Labs Reviewed by me
[2024-01-05] MEDS: COREG PO (08:48)
[2024-01-05] MEDS: LOW STRENGTH ASPIRIN 81 MG PO (08:49)
[2024-01-05] MEDS: TRILEPTAL 300 MG PO ×2 (08:49→22:06)
[2024-01-05] MEDS: FEOSOL 325 MG PO (08:49)
[2024-01-05] MEDS: NSS 500 IV (08:50)
--- NOTE | 2024-01-05 08:55 | PTCARENOTE ---
EKG shows AFIB, attending notified, hold AM coreg. D/t aphasia pt has trouble articulating s/s but reports she feels tired
--- NOTE | 2024-01-05 09:15 | PTCARENOTE ---
per attending and cards tele monitoring not necessary. pt appears comfortable in bed, CB in reach.
--- NOTE | 2024-01-05 11:13 | W.PN.CD ---
Addendum entered and electronically signed by Simone Menezes MD 01/06/24 10:53:
Chart correction:
Chronic non-ischemic myocardial injury
-In the setting of CKD.
Original Note:
Today's Communication / Plan
-
-Cardiology called back to see patient for concern of atrial fibrillation on telemetry.
-Upon review of telemetry, the patient has junctional rhythm with PACs in a pattern of bigeminy; no atrial fibrillation.
-The patient can be managed conservatively from a cardiac standpoint.
-Avoid any rate-controlling medications.
-No further cardiac recommendations at this time; can discontinue telemetry.
Impression / Plan
-
Cardiology called back to see patient for concern of atrial fibrillation on telemetry.
-Upon review of telemetry, the patient has junctional rhythm with PACs in a pattern of bigeminy; no atrial fibrillation.
-The patient can be managed conservatively from a cardiac standpoint.
-Avoid any rate-controlling medications.
Non DE myocardial injury
-In the setting of CKD.
Aortic stenosis
- Unlikely to be a candidate for intervention; conservative management.
Transient left bundle branch block
-Possible rate-related bundle branch block.
PVCs-relatively benign overall.
Hypertension
Hyperkalemia, resolved
Anemia
CKD
Physical Exam
Vital Signs/Labs
Vital Signs
Temp Pulse Resp BP Pulse Ox
97.8 F 50 22 116/74 96
01/05/24 08:00 01/05/24 08:00 01/05/24 08:00 01/05/24 08:00 01/05/24 08:30
01/05/24 05:41
01/05/24 05:41
Magnesium 2.5 mg/dl (1.6-2.3) H 01/05/24 05:41
LAB Results
01/02/24 01/02/24 01/02/24
15:55 18:40 23:36
Troponin I 0.045 H* 0.060 H* D 0.062 H*
01/03/24
07:46
Troponin I 0.043 H*
Physical Exam
Constitutional: No acute distress
EENT: Anicteric
Cardiovascular: Rhythm & rate is regular (Ectopy present), Pedal edema is absent and Systolic murmur absent
Respiratory: Respiratory effort normal and Lungs clear to auscul.
GI: Soft
Neuro/Psych: Alert
Other: Skin (Warm, dry)
Data Reviewed
-
Date of Service: January 05, 2024
EKG: Tracing Personally Visualized and interpreted (Telemetry: Junctional rhythm with frequent PACs in a pattern of bigeminy)
Medical Tests (PFT, Pathology etc): Discussed with Physician and Discussed with Nurse
Labs: Labs Reviewed by me
[2024-01-05 15:59] VITALS: BP 151/55
--- NOTE | 2024-01-05 18:08 | PTCARENOTE ---
continue Q2T, with static overlay. Preventative foam applied to sacrum
[2024-01-05] MEDS: LIPITOR 40 MG PO (22:06)
[2024-01-05 23:05] VITALS: BP 124/59
[2024-01-06] MEDS: STERILE WATER FOR INJECTION 10 ML IV (00:13)
[2024-01-06] MEDS: HEPARIN 5000 UNITS SC ×3 (00:13→16:33)
[2024-01-06] MEDS: ROCEPHIN 1000 MG IV (00:14)
[2024-01-06] MEDS: FLUSH (NSS) 2 FLUSH IV (00:14)
[2024-01-06 06:31] LABS: Hematocrit 31.6 % (37.0-47.0); Hemoglobin 10.1 g/dL (12.0-16.0); Mean Corpuscular Hgb 31.2 pg (27.0-31.0); Mean Corpuscular Volume 97.5 fL (81.0-99.0); Mean Platelet Volume 11.1 fL (7.4-10.4); Platelet Count 232 10^3/uL (130-400); Red Blood Cell Count 3.24 10^6/uL (4.20-5.40); Red Cell Dist. Width 13.4 % (11.5-14.5); White Blood Cell Count 11.6 10^3/uL (4.8-10.8)
[2024-01-06 06:51] LABS: Blood Urea Nitrogen 46 mg/dl (7-17); Calcium 9.2 mg/dl (8.4-10.2); Carbon Dioxide 19 mmol/L (22-30); Chloride 116 mmol/L (98-107); Estimated Creatinine Clearance 23 ml/min; Glucose 125 mg/dl (70-99); Potassium 4.6 mmol/L (3.5-5.1); Sodium 141 mmol/L (135-145)
[2024-01-06 07:00] VITALS: BP 140/76
[2024-01-06] MEDS: ProAIR HFA INHALER 2 PUFF INH ×3 (07:34→15:33)
[2024-01-06] MEDS: FEOSOL 325 MG PO (08:10)
[2024-01-06] MEDS: LOW STRENGTH ASPIRIN 81 MG PO (08:10)
[2024-01-06] MEDS: TRILEPTAL 300 MG PO (08:10)
--- NOTE | 2024-01-06 09:36 | W.PN.HOSP.TC ---
Addendum entered and electronically signed by Rizwana Gay MD 01/06/24 12:47:
total DC time 35 min
Original Note:
Today's Communication/Plan
-
DC to SNF today
outpt CBC in 1 week with result to PCP
Assessment / Plan
Assessment / Plan
CT AP:
No acute pathology of the abdomen or pelvis identified.
Tiny pericardial effusion versus pericardial thickening. New.
Moderate hiatal hernia. Stable.
Bilateral too small to characterize hypodense renal lesions likely benign cysts.
Small fat-containing umbilical hernia. Stable. No evidence of incarceration or strangulation
Mild diffuse bladder wall thickening likely at least partially due to limited distention. Cystitis and bladder outlet obstruction not excluded. New.
Calcified uterine fibroids. Stable.
Compression fractures. Stable. Nonacute nonunited right hip fracture. Stable
A/P:
# Abdominal pain, resolved
CT AP unrevealing, report as above
# UTI
Urine Cx with Klebsiella, sensitivity reviewed
blood cultures negative
Change Ertapenem to ceftriaxone
# LBBB, Possible rate related bundle branch block.
# then EKG noted junctional rhythm with PAC bigeminy, ruled out A fib per cardiology
No chest pain
No acute ST or T wave changes.
Trop chronically elevated.
Concentric LVH, EF 70% on prior echo.
cardiology consulted, no need to further investigate, signed off
# Mild Hyperkalemia, resolved
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
# EVELINE, suspect related to Contrast-induced nephropathy, resolved
She received CT AP with IV contrast on admission
SCr 1.6 on admission, peaked at 2.0, today at 1.6
s/p gentle IVF
Cont to hold BACCARAT MANAGER lisinopril & HCTZ
Cont to closely monitor SCr
# Hypertension
Started Coreg low dose 3.125 BID, DC due to slow HR
hold BACCARAT MANAGER lisinopril & HCTZ with EVELINE
Monitor BP (currently stable) off of ATC BP meds
IV hydralazine prn
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
# Pt appears bed bound
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
Cont soft and bite size diet but change thin to mildly thick liquid per SPL eval
# Bilateral too small to characterize hypodense renal lesions likely benign cysts noted on CT AP
# Moderate Hiatal Hernia on CT Imaging
# Small fat-containing umbilical hernia on CT Imaging
# Calcified uterine fibroids on CT Imaging
# Compression fractures
# Nonacute nonunited right hip fracture
DVT Prophylaxis - Heparin sq q 8
Code status - DNR
DW RN
Anticipated Discharge: Today
Subjective/Interval History
-
Date of Service: January 06, 2024
Objective Data
-
Labs:
Laboratory Results
01/06/24
05:58
WBC 11.6 H
Hgb 10.1 L
Hct 31.6 L
Plt Count 232
Sodium 141
Potassium 4.6
Chloride 116 H
Carbon Dioxide 19 L
BUN 46 H
Creatinine 1.6 H
Glucose 125 H
Calcium 9.2
Vital Signs:
Vital Signs
Temp Pulse Resp BP Pulse Ox
36.8 C 62 18 140/76 96
01/06/24 07:00 01/06/24 07:37 01/06/24 07:37 01/06/24 07:00 01/06/24 07:37
I&O
01/05/24 01/06/24 01/07/24
06:59 06:59 06:59
Intake Total 595 / 595 940 / 940
Balance 595 / 595 940 / 940
Review of Systems
-
Unable to obtain full review of systems at this time due to: Dementia
Physical Exam
-
General: Well Developed, Well Nourished, No Apparent Distress, Comfortable, Conversant and Appears Chronically Ill; Negative Respiratory Distress
HEENT: Normocephalic, Atraumatic, Nose Appears Normal and Ears Appear Normal; Negative Oxygen
Respiratory: Clear to Auscultation and Non Labored Respirations; Negative Accessory Resp Muscle Use
Cardiac: Regular Rhythm and S1/S2
GI: Soft, Nontender, Nondistended and Normal Bowel Sounds
Musculoskeletal: Other (RUE contracture)
Skin: Warm and Dry
Neuro: Awake; Negative AO x 3
Psych: Calm and Apparent Dementia
Data Reviewed
-
CT Scan: Report Reviewed by me
Labs: Labs Reviewed by me
--- NOTE | 2024-01-06 11:04 | CM ---
Pt for discharge today
Pt is LTR at [facility]
Notified Carmen at [facility]
Called sister Sandy, , LM - pt to return today to [facility]
Plan - return to [facility]
R - [phone]
- [phone]
--- NOTE | 2024-01-06 12:38 | W.DCSUMMARY ---
Discharge Summary
Discharge Data
Date of Admission: 01/02/24
Date of Discharge: 01/06/24
-
Pending Results: No
Hospital Course
Principal Diagnosis:
Urinary tract infection (UTI)
Acute kidney injury (EVELINE), suspect related to contrast-induced nephropathy, resolved
Chronic Diagnoses:�
Possible rate related bundle branch block, also junctional rhythm with Premature atrial contractions�bigeminy, ruled out atrial fibrillation per cardiology
Hypertension, off prior to admission lisinopril and hydrochlorothiazide with EVELINE, BP stable off meds
Previous stroke with slurred speech and Right arm contracture
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
Bilateral too small to characterize hypodense renal lesions likely benign cysts
Moderate Hiatal Hernia
Small fat-containing umbilical hernia
Calcified uterine fibroids
Compression fractures
Nonacute nonunited right hip fracture
Consultations:�
Cardiology
Procedures:�
None
Clinical course:�
This is a 83-year-old female, from local longterm, presented with abdominal pain on admission. Her abdominal pain resolved uneventfully, and she was found to have urinary tract infection.
Problem 1:
UTI.
Her urine culture grew Klebsiella.
She received ertapenem initially, which was then changed to ceftriaxone. She was discharged with cefdinir for 2 more days.
Problem 2:
EVELINE, suspect related to Contrast-induced nephropathy, resolved.
Her serum creatinine peaked at 2.0, then down trended to 1.6 on the day of discharge, which is at her baseline.
Her prior to admission lisinopril and hydrochlorothiazide were discontinued. The patient's blood pressure appeared to be stable off of these meds.
As for the rest of her medical problems, they were stable during her hospital stay.
Discharge Plan
-
Patient Disposition: Jail/SNF
Discharge Diagnosis/Procedures: Abdominal pain (resolved); urinary tract infection with Klebsiella
Condition: Fair
Diet: As tolerated
Additional Diets: soft and bite size meal with mildly thick ([place]) liquid
Blood Work: CBC in 1 week, result to PCP
Referrals:
John Laguna I., DO [Family Provider] - in less than 1 week
Additional Discharge Medication Instructions: Stop Fenofibrate due to creatinine clearance.
Your Trileptal was decreased from 600 to 300 twice daily due to creatinine clearance.
Stop HCTZ and lisinopril (your blood pressure has been stable without meds)
Continue cefdinir for 2 more days (for your UTI)
Prescriptions:
New
oxcarbazepine 300 mg Tablet
300 mg PO BID Qty: 60 0RF
cefdinir 300 mg capsule
300 mg PO Q12H 2 Days Qty: 4 0RF
Continued
atorvastatin 40 MG tablet
40 mg PO HS
acetaminophen 325 MG tablet
650 mg PO Q4HPRN PRN (Reason: mild pain,temp>99)
ergocalciferol (vitamin D2) 50,000 capsule
50,000 units PO .17TH OF EACH MONTH
Therapeutic Shampoo 473 ML shampoo
1 applic topical WESA
aspirin 81 MG tablet,chewable
81 mg PO DAILY
albuterol sulfate 1 PUFF HFA aerosol inhaler
2 puff inhalation R QID
Aspercreme with Aloe 85 GM cream
1 applic TP Q6HPRN PRN (Reason: NECK pain or stiffness)
ferrous sulfate 325 MG tablet,delayed release (DR/EC)
325 mg PO DAILY
loperamide [Anti-Diarrheal (loperamide)] 2 mg Capsule
2 mg PO Q4H PRN (Reason: diarrhea)
docusate sodium 100 mg Capsule
200 mg PO DAILY
trolamine salicylate [Aspercreme] 10 % Cream
1 applic TOPICAL QID PRN (Reason: pain)
Rx Instructions:
bilateral neck pain and stiffness
guaifenesin 400 mg Tablet
400 mg PO Q4H PRN (Reason: cough)
ascorbic acid (vitamin C) 500 mg Capsule
500 mg PO DAILY
Discontinued
fenofibrate nanocrystallized 48 MG tablet
48 mg PO HS
oxcarbazepine 300 MG tablet
600 mg PO BID
lisinopril 5 MG tablet
5 mg PO DAILY Qty: 0 0RF
Rx Instructions:
HOLD FOR SBP<100
hydrochlorothiazide 12.5 MG tablet
12.5 mg PO DAILY Qty: 0 0RF
Rx Instructions:
hold for SBP<100
Discharge Orders:
Discharge Patient (As Directed); Ordered 01/06/24
Ordered By: Rizwana Gay
Discharge Date and Time
Print Language: GERMAN
[2024-01-06 15:00] VITALS: BP 108/61
--- NOTE | 2024-01-06 16:28 | PTCARENOTE ---
notified provider Victor Hugo, pt running temp of 100.4, rechecked and 100.2. elevated WBCs. Cleared for continued discharge per provider, as pt is on cefdinir for next two days (4 doses). Skin intact, sacrum intact, has foam protection, looks good
== END 2024-01-06 17:45 | DRG 872 ==
LOC: 3 WEST ACU 19:53
PROVIDERS: Emergency Medicine; Hospitalist; Physician Assistant; ADMITTING PHYSICIAN Internal Medicine; ATTENDING PHYSICIAN Internal Medicine; CONSULT PHYSICIAN Internal Medicine Cardiovascular Disease; EMERGENCY PHYSICIAN Emergency Medicine; FAMILY PHYSICIAN Internal Medicine
DX: A41.9 Sepsis, unspecified organism (principal); N39.0 Urinary tract infection, site not specified; N17.9 Acute kidney failure, unspecified; N18.4 Chronic kidney disease, stage 4 (severe); I69.351 Hemiplegia and hemiparesis following cerebral infarction affecting right dominant side; R47.01 Aphasia; I5A Non-ischemic myocardial injury (non-traumatic); I12.9 Hypertensive chronic kidney disease with stage 1 through stage 4 chronic kidney disease, or unspecified chronic kidney disease; I44.7 Left bundle-branch block, unspecified; E87.5 Hyperkalemia; F03.90 Unspecified dementia, unspecified severity, without behavioral disturbance, psychotic disturbance, mood disturbance, and anxiety; K44.9 Diaphragmatic hernia without obstruction or gangrene; R47.81 Slurred speech; I25.10 Atherosclerotic heart disease of native coronary artery without angina pectoris
CPT/HCPCS: 74177; 80048; 80053; 81003; 81015; 82550; 83735; 84484; 85025; 85027; 87040; 87070; 87077; 87086; 87147; 87186; 92526; 92610; 93005; 94640; 96361; 96374; 99285; J1335; Q9967

== ENCOUNTER 2024-01-22 20:30 | Inpatient (IN) | payer MEDICARE, OTHER, SELFPAY ==
[2024-01-22] VITALS (32 sets, daily range): BP systolic 86–169; BP diastolic 48–126; PULSE 2–117; BMI 29.5; BMI 27.5
[2024-01-22] MEDS: SOLU-MEDROL PF 125 MG IV (18:08)
[2024-01-22] MEDS: DUONEB 3 ML INH (18:08)
[2024-01-22] MEDS: NITROGLYCERIN PREMIX 250 IV (18:22)
[2024-01-22 18:31] LABS: % Basophils 0.4 % (0-2); % Eosinophils 0.8 % (0-6); % Immature Granulocytes 0.4 % (0-0.5); % Lymphocytes 20.9 % (20.5-51.1); % Monocytes 3.7 % (1.7-9.3); % Neutrophils 73.8 % (42.2-75.2); Absolute Basophils 0.1 10^3/uL (0-0.2); Absolute Eosinophils 0.1 10^3/uL (0-0.7); Absolute Immature Granulocytes 0.1 10^3/uL (0-0.05); Absolute Lymphocytes 2.9 10^3/uL (1.2-3.4); Absolute Monocytes 0.5 10^3/uL (0.1-0.6); Absolute Neutrophils 10.4 10^3/uL (1.4-6.5); Hematocrit 36.8 % (37.0-47.0); Hemoglobin 11.5 g/dL (12.0-16.0); Mean Corp Hgb Conc. 31.3 g/dL (33.0-37.0); Mean Corpuscular Hgb 30.3 pg (27.0-31.0); Mean Corpuscular Volume 97.1 fL (81.0-99.0); Mean Platelet Volume 9.6 fL (7.4-10.4); Nucleated Red Blood Cells % 0 %; Platelet Count 554 10^3/uL (130-400); Red Blood Cell Count 3.79 10^6/uL (4.20-5.40); Red Cell Dist. Width 13.2 % (11.5-14.5)
--- NOTE | 2024-01-22 18:38 | ED.GENMED ---
History of Present Illness
<Criss Rosen PA-C - Last Filed: 01/22/24 21:49>
General
Chief Complaint: Breathing Problem
Source: patient and ambulance crew
Time Seen by Provider: 01/22/24 18:04
History of Present Illness
History of Present Illness:
83 y/o F with h/o COPD, CVA with epressive aphasia, right hemiparesis, GI bleeding
here with acute onset of SOB
accoridng to RN at [facility] i spoke to, pt was doign ok at 4 pm when she asekd to be put back to bed
then a few hours later was found to be in resp distress
wheezing, tachpyneic
ems gave duonebs in route and pt is movin gmore air but still very tachypneic
she was confirmed to be DNR, she arrives with paper work and then also i confiremd via [facility] rn and i asked the aptietn and she confirmed code status
she seems to udnerstand some qustions but then is difficult for us to udnerstand
she was in distres on arrival and suggesting she was having chest pain
no h/o chf
<Jason Barnes DO - Last Filed: 01/22/24 19:20>
Travel History
Have you had any contact with someone who has COVID-19?: No
Do you have any symptoms of coronavirus? Fever > 100 degrees, chills, cough, shortness of breath, sore throat, loss of taste or smell, muscle aches, or headache?: No
Past History
<DO Lauren Gross Last Filed: 01/22/24 19:20>
Past History
ED Past Medical History: COPD, CVA (Right sided weakness, Expressive aphasi), HTN, Hypercholesterolemia, MO, Seizures and Other (Gi bleeding, Alzhemiers, Anemiam PVD, Chronic kidney disease)
ED Past Surgical History: Cardiac (Stents)
Social History
Tobacco: Non-smoker
Alcohol: None
Drug: None
Living: fdc
Review of Systems
<Criss Rosen PA-C - Last Filed: 01/22/24 21:49>
Review of Systems
Allergies reviewed?: Yes
All Other Systems: Not applicable
Phy Exam
<Criss Rosen PA-C - Last Filed: 01/22/24 21:49>
Physical Exam
Physical Exam:
GENERAL: Alert , in acurte resp distress, wheezing, tachypneic
EYE: pupils equal and reactive
NECK: Supple
ENT: o/p clr, dry mouth
CARDIAC: tachy atrial fib irregiarul, no significnat edema
LUNGS: Clear breath sounds bilaterally, no acute respiratory distress, no wheezes/rales/rhonchi
ABDOMEN: Soft, obese, small hernia umbilical without focal tenderness, no r/g, no cvat, normal bowel sounds
NEUROLOGICAL: Alert and oriented, no focal neuro deficits
SKIN: Warm and dry, skin intact.
MUSCULOSKELETAL: No edema, well perfused. neg ira's sign
PSYCH: Normal and appropriate interaction.
Scores
<Criss Rosen PA-C - Last Filed: 01/22/24 21:49>
Heart Failure Risk
Heart Failure Risk Score: Yes
History of Stroke or TIA: Yes
History of intubation for respiratory distress: No
Heart rate on ED arrival >/= 110: Yes
SaO2 <90% on arrival on room air: Yes
HR >/=110 during 3min walk test (or too ill to perform test): Yes
ECG has acute ischemic changes: No
Urea >/=12mmol/L (BUN 33.6mg/dL): Yes
Serum CO2>/=35mmol/L: No
Troponin I or T elevated to MO Level (0.4mg/dL): No
NT-proBNP >/=5,000ng/L (5,000pg/ml): Yes
HF Risk Score: 6
Admission Status: VERY HIGH RISK 55.3% Consider admission to hospital
Course
<Criss Rosen PA-C - Last Filed: 01/22/24 21:49>
Orders/Labs/Results
Orders:
Orders
01/22/24 18:06
Electrocardiogram (*1) Urgent
Reason for Study: Shortness of Breath
Ipratropium/Albuterol Sulfate [Duoneb] 3 ml INH R NOW STA
MethylPREDNISolone PF [Solu-Medrol Pf] 125 mg IV NOW STA
Portable Chest Xray [CR Chest Portable - 1 View] Stat
Comment:
Reason For Exam: resp distress
Reason Study Needs to be Portable: Unable to Transport
Bipap [RESP] Urgent
Patient to use own unit?: No
Inspiratory Pressure (cm H2O): 10
Expiratory Pressure (cm H2O): 5
01/22/24 18:07
Cardiac Monitoring- Treatment ONCE
EKG- Treatment ONCE
01/22/24 18:11
Complete Blood Count/With Diff Urgent
Comprehensive Metabolic Panel Urgent
NT-proBNP Urgent
Troponin I Urgent
01/22/24 18:17
Nitroglycerin 100 mg/250 ml [Nitroglycerin Premix] 100 mg in 250 ml .ROUTE .STK-MED
01/22/24 18:30
Nitroglycerin 100 mg/250 ml [Nitroglycerin Premix] 100 mg in 250 ml IV PER PROTOCOL
Initial dose in mcg/min, then titrate:: 20
Titrate to keep:: SBP < 160 mmHg
Titrate by mcg/min:: 5 mcg/min, may increase by 10 mcg/min if dose > 20 mcg/min
Frequency of titrations (minutes):: every 3-5 minutes
Maximum dose in mcg/min:: 200
Begin to taper infusion when:: Remained at goal for 2hrs
Taper by mcg/min:: 5 mcg/min
Frequency of taper (minutes) if patient maintains goal:: 30
Taper to off?: Yes
If infusion off & no longer maintaining goal:: Contact Provider
01/22/24 18:42
Lactic Acid Urgent
Blood Culture Q30M
JAIMEE Source: Blood/Venous
Specimen Description:
01/22/24 18:43
COVID-19 Antigen Urgent
Source: Nasal Swab
Blood Culture Q30M
JAIMEE Source: Blood/Venous
Specimen Description:
Influenza A+B Rapid Molecular Urgent
JAIMEE Source: Nasal Swab
Specimen Description:
01/22/24 19:16
Aspirin Chewable [Low Strength Aspirin] 324 mg PO NOW STA
Furosemide [Lasix] 40 mg IV NOW STA
01/22/24 19:43
EKG [Electrocardiogram (*1)] Urgent
Reason for Study: Abnormal EKG
01/22/24 20:09
Echo 2D MMode Doppler [Echo 2D MMode Color/Doppler] Routine
Reason for Study: CHF
Code Status As Directed
Resuscitation Status: Do not resuscitate
Based on pt advanced directive or healthcare POA form: Yes
CARDIOLOGY CONSULT Routine
Consulting Provider: Phillip Disla
Was physician already notified: Yes
Reason for consult: CHF, A-Fib / Flutter
Acetaminophen [Tylenol] 650 mg PO Q4HPRN PRN
Dextrose 50%-Water [Dextrose 50% Syringe] 12.5 grams IV [id number] PRN
Glucagon [GlucaGen] 1 mg IM PRN PRN
Morphine Sulfate 2 mg IV Q4HPRN PRN
Polyethylene Glycol Powder [Miralax] 17 grams PO DAILY PRN
01/22/24 20:10
Activity As Directed
Activity Level: Ambulate
With Assistance
Bladder Scan As Directed
Follow Bladder Retention/Intermittent Cath Algorithm?: Yes
PRN if no void in __ hours: 6
Frequency: Per Retention Algorithm
If Bladder Scan Result >: 400
then:: Straight cath
EKG with chest pain [ECG as needed] As Directed
ECG as needed for:: Chest Pain
I/O [Intake/ Output] As Directed
Frequency: Per unit guidelines
Orthostatic Vital Signs As Directed
Orthostatic VS Frequency: BID
Straight Cath As Directed
Frequency: Per Retention Algorithm
Additional Instructions: straight cath as needed per acute urinary retention algorithm for 24 hrs
Additional Instructions: for bladder scan greater than 400 mL
Vital Signs As Directed
Frequency: Per unit guidelines
Weight As Directed
Frequency: Daily
Bipap [RESP] Routine
Patient to use own unit?: No
Inspiratory Pressure (cm H2O): 12
Expiratory Pressure (cm H2O): 5
Oxygen Therapy [O2 Therapy] [RESP] Routine
Titrate/Wean O2 to maintain O2 sat greater than (%): 94
Ot Eval And Treat Routine
PT Consult [Pt Eval And Treat] Routine
Activity Level: Ambulate
With Assistance
01/22/24 20:11
TSH Reflex To Free T4 Routine
01/22/24 20:13
Bedside Glucose Monitoring As Directed
Frequency: AC&HS
Additional Instructions:: Change to q6h if pt on TPN, tube feeding or not eating
DNR Bracelet Application ONCE
01/22/24 20:15
Complete Blood Count/No Diff Urgent
Comment: Obtain baseline before beginning heparin infusion if not already collected
PTT Urgent
Comment: Obtain baseline before beginning heparin infusion if not already collected
Troponin I Q6H
Heparin 59144 Units/250 ml 25,000 units in 250 ml IV PER PROTOCOL
Weight to be used for heparin protocol in kilograms (kg):: 70.8
Protocol:: Cardiac Tx/Acute Coronary
PTT Goal Range to be used:: PTT 73 to 111 seconds
Order type:: Initial
INITIAL Infusion Dose (UNITS/KG/hr) & then follow protocol:: 12 units/kg/hr
Infusion Dose in UNITS/hr & then follow protocol (UNITS/hr):: 850
INFUSION RATE in mL/hr & then follow protocol (mL/hr):: 8.5
PTT less than or equal to 64 seconds:: Increase rate by 200 units/hr (+ 2 mL/hr)
PTT 64.1 to 72.9 seconds:: Increase rate by 100 units/hr (+ 1 mL/hr)
PTT 73 to 111 seconds:: Target Range. No change in rate.
PTT 111.1 to 130.9 seconds:: Decrease rate by 100 units/hr (- 1 mL/hr)
PTT 131 to 199.9 seconds:: HOLD for 1 hr. Then decrease rate by 200 units/hr (- 2 mL/hr)
PTT greater than or equal to 200 seconds:: HOLD for 2 hrs & Notify Provider. Then decrease by 200 units/hr (-
2 mL/hr)
Lab follow-up:: Each change, PTT q6h until 2 consecutive are therapeutic. Then PTT
daily.
Heparin Protocol- PTT Orders As Directed
PTT per Heparin protocol: -Obtain CBC and baseline PTT - if not already collected.
-Obtain PTT 6 hours from start of infusion. Then, every 6 hours until 2 consecutive
PTT's are therapeutic. Then, PTT Daily.
-With each rate change, obtain PTT every 6 hours until 2 consecutive PTT's are
therapeutic. Then, PTT Daily.
Notify MD As Directed
Notify physician if: PTT is greater than or equal to 200.
01/22/24 20:18
Admit/Transfer Patient As Directed
Co-Sign Provider:
Level of Care: Inpatient admission
Assign to:: IMU- Intermediate Care
Physician / Group: Chris
Diagnosis: Pulm Edema, A-Fib / Flutter
Reason for Hospitalization: Pulm Edema, A-Fib / Flutter
Expected length of stay greater than two midnights?: Yes
ELOS- Estimated Length of Stay in days: 4
I certify the patient meets the requirements for IP care: Yes
01/22/24 22:00
Atorvastatin [Lipitor] 40 mg PO HS
Furosemide [Lasix] 40 mg IV ONCE@2200 ONE
Sennosides [Senokot] 17.2 mg PO HS
01/23/24 02:15
Troponin I Q6H
01/23/24 06:00
EKG [Electrocardiogram (*1)] IN AM
Reason for Study: Chest Pain
Regular
At Your Request: Limited, Expense Clerk Required
Fluid Restriction: 1440 mL/day (48 oz)
Basic Metabolic Panel IN AM
Complete Blood Count/No Diff IN AM
Glycohemoglobin (HgbA1c) IN AM
01/23/24 07:30
Insulin Aspart Corrective Low [Novolog Flexpen-Low Resistance] See Protocol SC AC
01/23/24 08:00
Aspirin Chewable [Low Strength Aspirin] 81 mg PO DAILY
Furosemide [Lasix] 40 mg IV BID AT 0800,1600
Pantoprazole [Protonix IV] 40 mg IV DAILY
oxcarbazepine 600 mg PO BID
01/23/24 08:15
Troponin I Q6H
01/24/24 06:00
Complete Blood Count/No Diff Q2D
Comment: Notify MD if platelet count is <130,000 or decreases by 50% from baseline
01/26/24 06:00
Complete Blood Count/No Diff Q2D
Comment: Notify MD if platelet count is <130,000 or decreases by 50% from baseline
01/28/24 06:00
Complete Blood Count/No Diff Q2D
Comment: Notify MD if platelet count is <130,000 or decreases by 50% from baseline
01/30/24 06:00
Complete Blood Count/No Diff Q2D
Comment: Notify MD if platelet count is <130,000 or decreases by 50% from baseline
02/01/24 06:00
Complete Blood Count/No Diff Q2D
Comment: Notify MD if platelet count is <130,000 or decreases by 50% from baseline
02/03/24 06:00
Complete Blood Count/No Diff Q2D
Comment: Notify MD if platelet count is <130,000 or decreases by 50% from baseline
02/05/24 06:00
Complete Blood Count/No Diff Q2D
Comment: Notify MD if platelet count is <130,000 or decreases by 50% from baseline
02/07/24 06:00
Complete Blood Count/No Diff Q2D
Comment: Notify MD if platelet count is <130,000 or decreases by 50% from baseline
Abnormal Lab Results
01/22/24 01/22/24
18:11 18:42
WBC 14.0 H 10^3/uL
(4.8-10.8)
RBC 3.79 L 10^6/uL
(4.20-5.40)
Hgb 11.5 L g/dL
(12.0-16.0)
Hct 36.8 L %
(37.0-47.0)
MCHC 31.3 L g/dL
(33.0-37.0)
Plt Count 554 H 10^3/uL
(130-400)
Abs Immat Gran (auto) 0.1 H 10^3/uL
(0-0.05)
Absolute Neuts (auto) 10.4 H 10^3/uL
(1.4-6.5)
Potassium 5.4 H mmol/L
(3.5-5.1)
BUN 33 H mg/dl
(7-17)
Creatinine 1.3 H mg/dL
(0.6-1.0)
Glucose 288 H mg/dl
(70-99)
Lactic Acid 2.3 H mmol/L
(0.7-2.0)
Troponin I 0.065 H* ng/ml
01/22/24 18:11
Vital Signs
Initial and Last Documented VS:
Initial Vital Signs
Pulse Resp Pulse Ox
120 24 99
01/22/24 18:08 01/22/24 18:08 01/22/24 18:08
Last Documented Vital Signs
Temp Pulse Resp BP Pulse Ox
98.1 F 111 23 101/70 99
01/22/24 18:14 01/22/24 21:10 01/22/24 21:10 01/22/24 21:10 01/22/24 21:10
<Jason Barnes, DO - Last Filed: 01/22/24 19:20>
Orders/Labs/Results
Orders:
Orders
01/22/24 18:06
Electrocardiogram (*1) Urgent
Reason for Study: Shortness of Breath
Ipratropium/Albuterol Sulfate [Duoneb] 3 ml INH R NOW STA
MethylPREDNISolone PF [Solu-Medrol Pf] 125 mg IV NOW STA
Portable Chest Xray [CR Chest Portable - 1 View] Stat
Comment:
Reason For Exam: resp distress
Reason Study Needs to be Portable: Unable to Transport
Bipap [RESP] Urgent
Patient to use own unit?: No
Inspiratory Pressure (cm H2O): 10
Expiratory Pressure (cm H2O): 5
01/22/24 18:07
Cardiac Monitoring- Treatment ONCE
EKG- Treatment ONCE
01/22/24 18:11
Complete Blood Count/With Diff Urgent
Comprehensive Metabolic Panel Urgent
NT-proBNP Urgent
Troponin I Urgent
01/22/24 18:17
Nitroglycerin 100 mg/250 ml [Nitroglycerin Premix] 100 mg in 250 ml .ROUTE .STK-MED
01/22/24 18:30
Nitroglycerin 100 mg/250 ml [Nitroglycerin Premix] 100 mg in 250 ml IV PER PROTOCOL
Initial dose in mcg/min, then titrate:: 20
Titrate to keep:: SBP < 160 mmHg
Titrate by mcg/min:: 5 mcg/min, may increase by 10 mcg/min if dose > 20 mcg/min
Frequency of titrations (minutes):: every 3-5 minutes
Maximum dose in mcg/min:: 200
Begin to taper infusion when:: Remained at goal for 2hrs
Taper by mcg/min:: 5 mcg/min
Frequency of taper (minutes) if patient maintains goal:: 30
Taper to off?: Yes
If infusion off & no longer maintaining goal:: Contact Provider
01/22/24 18:42
Lactic Acid Urgent
Blood Culture Q30M
JAIMEE Source: Blood/Venous
Specimen Description:
01/22/24 18:43
COVID-19 Antigen Urgent
Source: Nasal Swab
Blood Culture Q30M
JAIMEE Source: Blood/Venous
Specimen Description:
Influenza A+B Rapid Molecular Urgent
JAIMEE Source: Nasal Swab
Specimen Description:
01/22/24 19:16
Aspirin Chewable [Low Strength Aspirin] 324 mg PO NOW STA
Furosemide [Lasix] 40 mg IV NOW STA
01/22/24 19:43
EKG [Electrocardiogram (*1)] Urgent
Reason for Study: Abnormal EKG
01/22/24 20:09
Echo 2D MMode Doppler [Echo 2D MMode Color/Doppler] Routine
Reason for Study: CHF
Code Status As Directed
Resuscitation Status: Do not resuscitate
Based on pt advanced directive or healthcare POA form: Yes
CARDIOLOGY CONSULT Routine
Consulting Provider: Phillip Disla
Was physician already notified: Yes
Reason for consult: CHF, A-Fib / Flutter
Acetaminophen [Tylenol] 650 mg PO Q4HPRN PRN
Dextrose 50%-Water [Dextrose 50% Syringe] 12.5 grams IV [id number] PRN
Glucagon [GlucaGen] 1 mg IM PRN PRN
Morphine Sulfate 2 mg IV Q4HPRN PRN
Polyethylene Glycol Powder [Miralax] 17 grams PO DAILY PRN
01/22/24 20:10
Activity As Directed
Activity Level: Ambulate
With Assistance
Bladder Scan As Directed
Follow Bladder Retention/Intermittent Cath Algorithm?: Yes
PRN if no void in __ hours: 6
Frequency: Per Retention Algorithm
If Bladder Scan Result >: 400
then:: Straight cath
EKG with chest pain [ECG as needed] As Directed
ECG as needed for:: Chest Pain
I/O [Intake/ Output] As Directed
Frequency: Per unit guidelines
Orthostatic Vital Signs As Directed
Orthostatic VS Frequency: BID
Straight Cath As Directed
Frequency: Per Retention Algorithm
Additional Instructions: straight cath as needed per acute urinary retention algorithm for 24 hrs
Additional Instructions: for bladder scan greater than 400 mL
Vital Signs As Directed
Frequency: Per unit guidelines
Weight As Directed
Frequency: Daily
Bipap [RESP] Routine
Patient to use own unit?: No
Inspiratory Pressure (cm H2O): 12
Expiratory Pressure (cm H2O): 5
Oxygen Therapy [O2 Therapy] [RESP] Routine
Titrate/Wean O2 to maintain O2 sat greater than (%): 94
Ot Eval And Treat Routine
PT Consult [Pt Eval And Treat] Routine
Activity Level: Ambulate
With Assistance
01/22/24 20:11
TSH Reflex To Free T4 Routine
01/22/24 20:13
Bedside Glucose Monitoring As Directed
Frequency: AC&HS
Additional Instructions:: Change to q6h if pt on TPN, tube feeding or not eating
DNR Bracelet Application ONCE
01/22/24 20:15
Complete Blood Count/No Diff Urgent
Comment: Obtain baseline before beginning heparin infusion if not already collected
PTT Urgent
Comment: Obtain baseline before beginning heparin infusion if not already collected
Troponin I Q6H
Heparin 21308 Units/250 ml 25,000 units in 250 ml IV PER PROTOCOL
Weight to be used for heparin protocol in kilograms (kg):: 70.8
Protocol:: Cardiac Tx/Acute Coronary
PTT Goal Range to be used:: PTT 73 to 111 seconds
Order type:: Initial
INITIAL Infusion Dose (UNITS/KG/hr) & then follow protocol:: 12 units/kg/hr
Infusion Dose in UNITS/hr & then follow protocol (UNITS/hr):: 850
INFUSION RATE in mL/hr & then follow protocol (mL/hr):: 8.5
PTT less than or equal to 64 seconds:: Increase rate by 200 units/hr (+ 2 mL/hr)
PTT 64.1 to 72.9 seconds:: Increase rate by 100 units/hr (+ 1 mL/hr)
PTT 73 to 111 seconds:: Target Range. No change in rate.
PTT 111.1 to 130.9 seconds:: Decrease rate by 100 units/hr (- 1 mL/hr)
PTT 131 to 199.9 seconds:: HOLD for 1 hr. Then decrease rate by 200 units/hr (- 2 mL/hr)
PTT greater than or equal to 200 seconds:: HOLD for 2 hrs & Notify Provider. Then decrease by 200 units/hr (-
2 mL/hr)
Lab follow-up:: Each change, PTT q6h until 2 consecutive are therapeutic. Then PTT
daily.
Heparin Protocol- PTT Orders As Directed
PTT per Heparin protocol: -Obtain CBC and baseline PTT - if not already collected.
-Obtain PTT 6 hours from start of infusion. Then, every 6 hours until 2 consecutive
PTT's are therapeutic. Then, PTT Daily.
-With each rate change, obtain PTT every 6 hours until 2 consecutive PTT's are
therapeutic. Then, PTT Daily.
Notify MD As Directed
Notify physician if: PTT is greater than or equal to 200.
01/22/24 20:18
Admit/Transfer Patient As Directed
Co-Sign Provider:
Level of Care: Inpatient admission
Assign to:: IMU- Intermediate Care
Physician / Group: Chris
Diagnosis: Pulm Edema, A-Fib / Flutter
Reason for Hospitalization: Pulm Edema, A-Fib / Flutter
Expected length of stay greater than two midnights?: Yes
ELOS- Estimated Length of Stay in days: 4
I certify the patient meets the requirements for IP care: Yes
01/22/24 22:00
Atorvastatin [Lipitor] 40 mg PO HS
Furosemide [Lasix] 40 mg IV ONCE@2200 ONE
Sennosides [Senokot] 17.2 mg PO HS
01/23/24 02:15
Troponin I Q6H
01/23/24 06:00
EKG [Electrocardiogram (*1)] IN AM
Reason for Study: Chest Pain
Regular
At Your Request: Limited, Expense Clerk Required
Fluid Restriction: 1440 mL/day (48 oz)
Basic Metabolic Panel IN AM
Complete Blood Count/No Diff IN AM
Glycohemoglobin (HgbA1c) IN AM
01/23/24 07:30
Insulin Aspart Corrective Low [Novolog Flexpen-Low Resistance] See Protocol SC AC
01/23/24 08:00
Aspirin Chewable [Low Strength Aspirin] 81 mg PO DAILY
Furosemide [Lasix] 40 mg IV BID AT 0800,1600
Pantoprazole [Protonix IV] 40 mg IV DAILY
oxcarbazepine 600 mg PO BID
01/23/24 08:15
Troponin I Q6H
01/24/24 06:00
Complete Blood Count/No Diff Q2D
Comment: Notify MD if platelet count is <130,000 or decreases by 50% from baseline
01/26/24 06:00
Complete Blood Count/No Diff Q2D
Comment: Notify MD if platelet count is <130,000 or decreases by 50% from baseline
01/28/24 06:00
Complete Blood Count/No Diff Q2D
Comment: Notify MD if platelet count is <130,000 or decreases by 50% from baseline
01/30/24 06:00
Complete Blood Count/No Diff Q2D
Comment: Notify MD if platelet count is <130,000 or decreases by 50% from baseline
02/01/24 06:00
Complete Blood Count/No Diff Q2D
Comment: Notify MD if platelet count is <130,000 or decreases by 50% from baseline
02/03/24 06:00
Complete Blood Count/No Diff Q2D
Comment: Notify MD if platelet count is <130,000 or decreases by 50% from baseline
02/05/24 06:00
Complete Blood Count/No Diff Q2D
Comment: Notify MD if platelet count is <130,000 or decreases by 50% from baseline
02/07/24 06:00
Complete Blood Count/No Diff Q2D
Comment: Notify MD if platelet count is <130,000 or decreases by 50% from baseline
Abnormal Lab Results
01/22/24 01/22/24
18:11 18:42
WBC 14.0 H 10^3/uL
(4.8-10.8)
RBC 3.79 L 10^6/uL
(4.20-5.40)
Hgb 11.5 L g/dL
(12.0-16.0)
Hct 36.8 L %
(37.0-47.0)
MCHC 31.3 L g/dL
(33.0-37.0)
Plt Count 554 H 10^3/uL
(130-400)
Abs Immat Gran (auto) 0.1 H 10^3/uL
(0-0.05)
Absolute Neuts (auto) 10.4 H 10^3/uL
(1.4-6.5)
Potassium 5.4 H mmol/L
(3.5-5.1)
BUN 33 H mg/dl
(7-17)
Creatinine 1.3 H mg/dL
(0.6-1.0)
Glucose 288 H mg/dl
(70-99)
Lactic Acid 2.3 H mmol/L
(0.7-2.0)
Troponin I 0.065 H* ng/ml
01/22/24 18:11
Vital Signs
Initial and Last Documented VS:
Initial Vital Signs
Pulse Resp Pulse Ox
120 24 99
01/22/24 18:08 01/22/24 18:08 01/22/24 18:08
Last Documented Vital Signs
Temp Pulse Resp BP Pulse Ox
98.1 F 111 23 101/70 99
01/22/24 18:14 01/22/24 21:10 01/22/24 21:10 01/22/24 21:10 01/22/24 21:10
<Criss Rosen PA-C - Last Filed: 01/22/24 21:49>
MDM/Problems Addressed
Differential Diagnosis Includes:
COPD, CHF, PNEUMONIA
MDM/Problems Addressed:
83 y/o F copd, dementia, cva hemiparesis from [place] [facility] no h/o CHF;
,DNR
acute sob and seemed to have chest pain, but she is hard to understand DUE TO APHASIA FROM PREVIOUS CVA
exam and cxr indep reviewed c/w likely new pulm edema, and ekg new afib;
pt did well on bipap, nitro drip which helped pt's initial hypertension and chest pain
the drip was turned off when pain resovled bp 130/80s but then pt became hypotensive, so lasix wasn't given
bnp 16k
considered heparin but pt has had h/o UGI beleeding
d/w ed attending
will hold on heparin for now
admit
<Criss Rosen PA-C - Last Filed: 01/22/24 21:49>
*Critical Care Note
Total Time (30-74mins, 75-104mins- exclusive of procedures): Not Applicable
ED Attending Note
<Jason Barnes DO - Last Filed: 01/22/24 19:20>
ED Attending Note
Patient seen and examined by attending physician: Yes
I performed the substantive portion of visit, reviewed & personally made and approve the management plan that is documented in note by myself or ROSIE.: Yes
-
Portions of this chart may have been created with voice recognition software.� Occasional wrong word or��sound alike� substitutions may have occurred due to the inherent limitations of voice recognition software.
Discharge Plan
Departure
Patient Disposition: Admit
Date of Disposition: 01/22/24
Time of Disposition: 19:11
Admit to: IMU
Presentation/result/management discussed w/ accepting MD/DO: Hospitalist
Condition: Fair
Covid-19: Not Applicable
Discharge Problem:
Pulmonary edema
Interventions
Interventions:
*General Assessment Last Done: 01/22/24 18:33
*Neglect/Abuse Screening Last Done: 01/22/24 18:33
*ED COVID-19 Vaccine History Last Done: 01/22/24 18:33
ED- Cardiac Assessment Last Done: 01/22/24 19:09
ED- Pulmonary Assessment Last Done: 01/22/24 19:09
[2024-01-22 18:40] LABS: ALT (SGPT) 24 U/L (0-35); AST (SGOT) 35 U/L (14-36); Albumin 3.8 g/dl (3.5-5.0); Alkaline Phosphatase 112 U/L (38-126); Blood Urea Nitrogen 33 mg/dl (7-17); Calcium 9.4 mg/dl (8.4-10.2); Carbon Dioxide 25 mmol/L (22-30); Chloride 105 mmol/L (98-107); Estimated Creatinine Clearance 30 ml/min; Glucose 288 mg/dl (70-99); Potassium 5.4 mmol/L (3.5-5.1); Sodium 140 mmol/L (135-145); Total Bilirubin 0.3 mg/dl (0.2-1.3); Total Protein 7.3 g/dl (6.3-8.2); eGFR 41.06
[2024-01-22 18:52] LABS: NT-proBNP 19800 pg/ml; Troponin I 0.065 ng/ml
[2024-01-22 19:01] LABS: Lactic Acid 2.3 mmol/L (0.7-2.0)
[2024-01-22 19:24] LABS: COVID-19 Antigen Negative (Negative)
--- NOTE | 2024-01-22 21:20 | HPS.HSE ---
Addendum entered and electronically signed by Matt Perez DO 01/22/24 22:22:
A/P:
Disregard Hypothyroidism entry. Patient does not have hypothyroidism, is not on T4 supplementation.
Entered in error.
Original Note:
Family Physician
-
Family Physician: John Laguna
Chief Complaint
-
SOB
History of Present Illness
Patient is a 83y F with PMH significant for ASCVD, CVA and hypertension who presents to ED complaining of SOB. Patient arrived to the ED in respiratory distress. She was initially on NRB mask and was then placed on BiPAP here in the ED. Her
oxygenation has been acceptable on these interventions and we have no room air readings. Patient initially complained of chest pain per ED report. History is limited from the patient due to her baseline dementia.
Patient was started on NTG gtt but this was quickly discontinued after patient developed hypotension.
At the time of my examination, patient appears comfortable on BiPAP. She states that she feels improved. She states that she has some lower abdominal discomfort, but denies any other complaints at present.
Medical History
Past Medical History
Past Medical History: Reports Other
Additional Past Medical History:
ASCVD
CVA with R Hemiparesis
Senile Dementia
Hypertension
CKD IV
Past Surgical History: Reports Other
Additional Past Surgical History:
PTCA with Stent
Social History
Unable to obtain full social history at this time due to: Dementia
Family History
Family History: Unable to Obtain
Allergies / Home Medications
Allergies reflects when Allergies were last updated in [employer].
Home Medications with original date entered in [employer]
Allergy/Medication List:
Allergies
Allergy/AdvReac Type Severity Reaction Status Date / Time
No Known Drug Allergies Allergy Unknown Verified 01/22/24 18:14
Home Medications
atorvastatin 40 mg tablet 40 mg PO HS High cholesterol 09/07/10
acetaminophen 325 mg tablet 650 mg PO Q4H PRN mild pain,temp>99 03/28/19
ergocalciferol (vitamin D2) 1,250 mcg (50,000 unit) capsule 50,000 units PO MONTHLY Supplement 03/28/19
albuterol sulfate 90 mcg/actuation aerosol inhaler 2 puff inhalation R QID Lung/breathing issues 09/05/21
aspirin 81 mg chewable tablet 81 mg PO DAILY Blood clot prevention/tx 09/05/21
ferrous sulfate 325 mg (65 mg iron) tablet,delayed release 325 mg PO DAILY anemia 09/19/21
ascorbic acid (vitamin C) 500 mg capsule 500 mg PO DAILY Supplement 01/02/24
docusate sodium 100 mg capsule 200 mg PO DAILY Constipation 01/02/24
guaifenesin 400 mg tablet 400 mg PO Q4H PRN cough 01/02/24
loperamide 2 mg capsule (Anti-Diarrheal (loperamide)) 2 mg PO Q4H PRN diarrhea 01/02/24
trolamine salicylate 10 % topical cream (Aspercreme) 1 applic topical Q6H PRN b/l neck pain/stiffness 01/02/24
coal tar 2.5 % shampoo 1 applic topical WESA 01/22/24
magnesium hydroxide 400 mg/5 mL oral suspension (Milk of Magnesia) 30 ml PO HS PRN if no bm x 3 days 01/22/24
oxcarbazepine 600 mg tablet 600 mg PO BID 01/22/24
Review of Systems
-
History Source: Patient
A 12 point ROS was completed and negative except as noted: Yes
Constitutional: Denies Fever or Chills
EENT: Denies Sore Throat
Respiratory: Reports Trouble Breathing; Denies Cough
Cardiac: Reports Chest Pain; Denies Palpitations
Abdomen/GI: Reports Abdominal Pain; Denies Nausea or Vomiting
Musculoskeletal: Denies Joint Pain or Edema
Neurological: Denies Dizzy or Headache
Physical Exam
Vital Signs
Vital Signs
Temp Pulse Resp BP Pulse Ox
98.1 F 111 23 101/70 99
01/22/24 18:14 01/22/24 21:10 01/22/24 21:10 01/22/24 21:10 01/22/24 21:10
Physical Exam
General: Other (83y F in no acute distress.)
HEENT: Moist mucous membranes and Other (BiPAP in place.)
Respiratory: Other (Bibasilar rales about 1/3 up. No wheeze / rhonchi.)
Cardiac: S1/S2, Regular Rhythm and Murmur (II/ ESTELA)
GI: Soft, Non Distended, Normal Bowel Sounds and Other (Umbilical hernia which is soft and mildly tender. )
Musculoskeletal: No Clubbing, No Cyanosis and Other (Trace pedal edema.)
Neuro: Awake and Alert; No Oriented
Laboratory Results
-
01/22/24 18:11
Laboratory Results
Lactic Acid 2.3 mmol/L (0.7-2.0) H 01/22/24 18:42
Total Bilirubin 0.3 mg/dl (0.2-1.3) 01/22/24 18:11
AST 35 U/L (14-36) 01/22/24 18:11
ALT 24 U/L (0-35) 01/22/24 18:11
Alkaline Phosphatase 112 U/L (38-126) 01/22/24 18:11
Troponin I 0.065 ng/ml H* 01/22/24 18:11
Impression/Plan
-
A/P: Patient is a 83y F with PMH significant for ASCVD, prior CVA and dementia who presents to ED for evaluation of sudden onset of SOB / respiratory distress.
Pulmonary Edema
CHF - New Diagnosis
- Admit for further evaluation and treatment.
- CXR with pulmonary edema, BNP markedly elevated compared to prior.
- IV Lasix BID and follow weights, I/Os, etc.
- Follow for improvement in respiratory status and titrate off of BiPAP as needed.
- Check Echo - last done in 2021 with LVEF 70-75%, concentric LVH and mild .
- Cardiology evaluation.
- Adjust medications as appropriate.
- ? rate / rhythm related occurrence due to A-Fib / Flutter.
Paroxysmal Atrial Fibrillation / Flutter
- Initial EKG appears to be A-Fib or sinus arrhythmia with aberrancy.
- Repeat EKG done and shows SVT with 2:1 block - ? A-Flutter - though rate on the lower side (115 bpm).
- Monitor on telemetry.
- IV Heparin infusion for now.
- Cardiology evaluation as noted above.
LBBB
- This appears to be rate-related phenomenon that patient has expressed in the past.
- Monitor on telemetry. Follow for resolution with improved ventricular rates.
- Evaluate for possible ischemia as noted below.
Myocardial Injury - Unclear Etiology
- Troponin 0.065 which appears to be consistent with patient's prior values.
- This likely represents chronic elevation in the setting of CKD and not acute ischemia.
- Continue to trend for now.
- Follow for any new symptoms / complaints.
ASCVD
Benign Hypertension
- Continue current CV med regimen and adjust as needed.
CKD IV
- Stable. Renal function at present appears somewhat improved from known baseline.
- Follow for changes with IV diuresis.
- Avoid nephrotoxic agents / hypotension / etc.
Seizure Disorder
- Stable. Continue oxcarbazepine.
Hypothyroidism
- T4 dose increased during recent admission.
- Continue current dose, too early to repeat TFTs.
DVT Prophylaxis: On IV Heparin at present.
Code Status: DNR
[2024-01-22] MEDS: LASIX 40 MG IV (22:52)
[2024-01-22] MEDS: LIPITOR PO (23:16)
[2024-01-22 23:18] LABS: Hematocrit 29.5 % (37.0-47.0); Hemoglobin 9.6 g/dL (12.0-16.0); Mean Corp Hgb Conc. 32.5 g/dL (33.0-37.0); Mean Corpuscular Hgb 30.6 pg (27.0-31.0); Mean Corpuscular Volume 93.9 fL (81.0-99.0); Mean Platelet Volume 9.8 fL (7.4-10.4); Platelet Count 415 10^3/uL (130-400); Red Blood Cell Count 3.14 10^6/uL (4.20-5.40); Red Cell Dist. Width 13.4 % (11.5-14.5); White Blood Cell Count 11.8 10^3/uL (4.8-10.8)
[2024-01-22 23:30] LABS: APTT 26.2 Sec (23.4-35.0); Lactic Acid 1.4 mmol/L (0.7-2.0)
[2024-01-23] VITALS (31 sets, daily range): BP systolic 84–138; BP diastolic 52–110; PULSE 2–117; O2SAT 95; BMI 27.4
[2024-01-23 00:25] LABS: TSH Reflex To Free T4 1.72 uIU/ml (0.47-4.68)
[2024-01-23 00:33] LABS: Glucose - Point of Care 133 mg/dl (70-99)
[2024-01-23] MEDS: HEPARIN 25000 UNITS/250 ML IV ×2 (01:03→23:51)
--- NOTE | 2024-01-23 02:33 | PTCARENOTE ---
Received Pt from ED RN around 2144. pt off Nitro gtt. Pt on BiPAP spo2 100%. Pt confused, oriented to self but appears to be in pleasant mood. Labs obtained to start heparin gtt. [facility] order due to change in rhythm, EKG result ST. Admit
charting states in clinical data ' vomitted blood today'. verified with ED RN who brought Pt up that this was not passed on in his report. 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 Assessment
care and vitals as charted.
[2024-01-23 06:52] LABS: Hematocrit 30.7 % (37.0-47.0); Hemoglobin 9.7 g/dL (12.0-16.0); Mean Corp Hgb Conc. 31.6 g/dL (33.0-37.0); Mean Platelet Volume 9.8 fL (7.4-10.4); Platelet Count 431 10^3/uL (130-400); Red Blood Cell Count 3.23 10^6/uL (4.20-5.40); Red Cell Dist. Width 13.3 % (11.5-14.5); White Blood Cell Count 7.8 10^3/uL (4.8-10.8)
[2024-01-23 07:00] LABS: APTT 47.7 Sec (23.4-35.0)
[2024-01-23] MEDS: NOVOLOG FLEXPEN-LOW RESISTANCE SC ×3 (07:00→18:27)
[2024-01-23 07:09] LABS: Blood Urea Nitrogen 40 mg/dl (7-17); Carbon Dioxide 23 mmol/L (22-30); Chloride 108 mmol/L (98-107); Estimated Creatinine Clearance 24 ml/min; Glucose 124 mg/dl (70-99); Potassium 5.7 mmol/L (3.5-5.1); Sodium 141 mmol/L (135-145)
[2024-01-23 07:18] LABS: Troponin I 0.099 ng/ml
[2024-01-23 07:38] LABS: Glucose - Point of Care 122 mg/dl (70-99)
--- NOTE | 2024-01-23 07:40 | CON.CAR ---
Addendum entered and electronically signed by Phillip Disla MD 01/23/24 09:29:
I saw and examined the patient.
The VP [employer]'s note was reviewed and I agree with the note.
Comment: 83-year-old female with prior CVA, hypertension, dyslipidemia, COPD, seizure disorder, and dementia who presented to the emergency department yesterday with a chief complaint of shortness of breath. She was found to have pulmonary edema
likely acute.
- IV diuresis
- A fib/ a flutter; BP are borderline try and start metop 12.5 mg bid
- anticoagulation and TTE
Original Note:
Consultation
Consultation Request
Date/Time Consultation Requested: 01/22/2024 20:00
Date/Time Consultation Performed: 01/23/2024 07:40
Requesting Provider: Dr. Perez
Performing Provider: KARIS Milligan for Dr. Disla
Reason for Consultation: Acute heart failure, atrial fibrillation/flutter
Medical History
-
Chief Complaint: Shortness of breath
History of Present Illness:
Yumi Lewis is an 83-year-old female with prior CVA, hypertension, dyslipidemia, COPD, seizure disorder, and dementia who presented to the emergency department yesterday with a chief complaint of shortness of breath. She arrived in respiratory
distress. Initially required a nonrebreather and then was placed on BiPAP. Reports reflect that she complaint of chest pain and she was started on nitroglycerin drip that was discontinued due to hypotension. She is currently atrial flutter with
rapid ventricular response. Treatment is limited due to her blood pressure limitations. Unfortunately, she is only oriented to herself. She did not know she was in the hospital and she believes she is still residing in [place] with her
family. Records show she lives in a local nursing facility. She denies chest pain. She is on BiPAP and denies shortness of breath. She is reporting left lower quadrant abdominal pain.
Past Medical History
Past Medical History: COPD, CVA, Hypercholesterolemia, Seizures and Psychiatric (Dementia)
Social History
Tobacco: Other (Unable)
Alcohol: None
Living: Detention
Employment: Retired
Family History
Family History: Unable to Obtain
Allergies / Home Medications
Allergy/AdvReac Type Severity Reaction Status Date / Time
No Known Drug Allergies Allergy Unknown Verified 01/22/24 18:14
�Medication �Instructions �Recorded �Confirmed �Type
atorvastatin 40 mg tablet 40 mg PO HS High cholesterol 09/07/10 01/22/24 History
acetaminophen 325 mg tablet 650 mg PO Q4H PRN mild pain,temp>99 03/28/19 01/22/24 History
ergocalciferol (vitamin D2) 1,250 50,000 units PO MONTHLY Supplement 03/28/19 01/22/24 History
mcg (50,000 unit) capsule
albuterol sulfate 90 mcg/actuation 2 puff inhalation R QID 09/05/21 01/22/24 History
aerosol inhaler Lung/breathing issues
aspirin 81 mg chewable tablet 81 mg PO DAILY Blood clot 09/05/21 01/22/24 History
prevention/tx
ferrous sulfate 325 mg (65 mg 325 mg PO DAILY anemia 09/19/21 01/22/24 History
iron) tablet,delayed release
ascorbic acid (vitamin C) 500 mg 500 mg PO DAILY Supplement 01/02/24 01/22/24 History
capsule
docusate sodium 100 mg capsule 200 mg PO DAILY Constipation 01/02/24 01/22/24 History
guaifenesin 400 mg tablet 400 mg PO Q4H PRN cough 01/02/24 01/22/24 History
loperamide 2 mg capsule 2 mg PO Q4H PRN diarrhea 01/02/24 01/22/24 History
(Anti-Diarrheal (loperamide))
trolamine salicylate 10 % topical 1 applic topical Q6H PRN b/l neck 01/02/24 01/22/24 History
cream (Aspercreme) pain/stiffness
coal tar 2.5 % shampoo 1 applic topical WESA 01/22/24 01/22/24 History
magnesium hydroxide 400 mg/5 mL 30 ml PO HS PRN if no bm x 3 days 01/22/24 01/22/24 History
oral suspension (Milk of Magnesia)
oxcarbazepine 600 mg tablet 600 mg PO BID 01/22/24 01/22/24 History
Review of Systems
-
Unable to obtain full review of systems at this time due to: Dementia
History Source: Patient
All other systems: Negative unless noted
Cardiac: No Symptoms
Abdomen/GI: Abdominal Pain
Musculoskeletal: Muscle Stiffness
Physical Exam
Vital Signs
Temp Pulse Resp BP Pulse Ox
97.5 F 110 17 94/58 95
01/23/24 02:36 01/23/24 06:00 01/23/24 06:00 01/23/24 06:00 01/23/24 06:00
Lab Results
01/23/24 06:32
01/23/24 06:32
Troponin I 0.099 ng/ml H* 01/23/24 06:32
Aen-Z-Zncjykmlsbq Pept 08313 pg/ml 01/22/24 18:11
Physical Exam
General: Well Developed, Well Nourished and Comfortable
HEENT: Normocephalic and Anicteric
Respiratory: Crackles and Non Labored Respirations
Cardiac: S1/S2, Irregular Rhythm and Murmur (II/)
Breast: Deferred by me
GI: Soft, Non Tender, Non Distended and Normal Bowel Sounds
Rectal: Deferred by Provider
Genito-urinary: No Costovertebral Tender
Musculoskeletal: No Clubbing, No Cyanosis and Edema (Trace ankle edema right greater than left)
Skin: Warm and Dry
Neuro: Awake, Alert and Oriented (To self only)
Hematologic/Lymphatic: No Lymphadenopathy
Psych: Calm
Impression / Plan
-
Pulmonary edema
Acute heart failure
-Diuresis with furosemide 40 mg IV twice daily
-Follow daily weight, I/O and BMP with diuresis
-Unable to provide heart failure education due to dementia
-Update echocardiogram
Atrial fibrillation/flutter with RVR
-Rates elevated, start metoprolol tartrate with holding parameters
-Rate control may be challenging giving her borderline blood pressure, avoiding digoxin given her hyperkalemia & CKD
-Oral Anticoagulation: Heparin drip
-[id number]: score 6 (Heart failure, age 75 or more, prior Stroke/TIA, female gender)
Abnormal troponin, likely nonischemic myocardial injury in the setting of tachyarrhythmia
-Peak troponin 0.130
-Chest pain free
Abdominal pain, per primary
Hyperkalemia
CKD, follow with diuresis
Aortic stenosis, update echocardiogram 01/25/2024
Transient left bundle branch block
Prior CVA
PVCs
Hypertension, history of, not currently on any agents
Dementia
Data Reviewed
-
EKG: Report Reviewed by me (Atrial fibrillation with rapid ventricular response, LBBB, rate 106)
Radiology: Report Reviewed by me (CXR: Large amount of bilateral lower lobe airspace opacity which is likely SEVERE ACUTE ALVEOLAR CARDIOGENIC PULMONARY EDEMA. Severe bilateral pneumonia is an alternative diagnostic possibility if there are
signs/symptoms strongly suggestive of pulmonary infection.)
Labs: Labs Reviewed by me
Old Records: Reviewed
[2024-01-23] MEDS: LASIX 40 MG IV ×2 (08:57→15:55)
[2024-01-23] MEDS: NSS (PRESERVATIVE FREE) 10 ML IV (08:57)
[2024-01-23] MEDS: PROTONIX IV 40 MG IV (08:57)
[2024-01-23] MEDS: DESENEX/MITRAZOL/ZEASORB 1 APPLIC TOPICAL ×2 (08:58→20:15)
--- NOTE | 2024-01-23 09:15 | PTCARENOTE ---
patient alert and awake. asking for water. expressive aphasia. pox 95% and sustaining when bipap mask removed. mouth care provided. one sip water given; no cough during swallow. lung sounds with expiratory wheezing posterior serra. 2:1 atrial
flutter with rates in low 100's. see fully documented assessment. call singleton in reach.
[2024-01-23 09:50] LABS: Glycohemoglobin (HgbA1c) 5.8 % (4.0-5.6)
--- NOTE | 2024-01-23 10:38 | W.PN.HOSP.TC ---
Today's Communication/Plan
-
hep gtt
lasix
metoprolol
PT/OT
wean O2 supplementation as tolerated
Assessment / Plan
Assessment / Plan
Physical Exam
General:no acute distress
HEENT: Moist mucous membranes on nasal cannula PERRLA right sided facial droop appears baseline from prior stroke
Respiratory: Bibasilar Crackles
Cardiac: S1/S2, Irregularly Irregular
GI: Soft, Non Distended, Normal Bowel Sounds, Umbilical hernia soft reducible, patient exhibits tenderness with slightest touch or even the suggestion of touch but appears comfortable at rest.
Musculoskeletal: No Clubbing, No Cyanosis and Other (Trace pedal edema.) Contracted right hand wrist appears baseline from prior stroke
Neuro: Awake and Alert; oriented only to self short term memory issues some aphasia noted relatively fluent speech
A/P: Patient is a 83y F with PMH significant for ASCVD, prior CVA and dementia who presents to ED for evaluation of sudden onset of SOB / respiratory distress.
Pulmonary Edema
CHF - New Diagnosis
- CXR with pulmonary edema, BNP markedly elevated compared to prior.
- IV Lasix BID and follow weights, I/Os, etc.
- titrate off of BiPAP as tolerated
- Check Echo - last done in 2021 with LVEF 70-75%, concentric LVH and mild .
- Cardiology eval appreciated low dose metoprolol started
Paroxysmal Atrial Fibrillation / Flutter
- Initial EKG appears to be A-Fib or sinus arrhythmia with aberrancy.
- Repeat EKG done and shows SVT with 2:1 block - ? A-Flutter - though rate on the lower side (115 bpm).
- Monitor on telemetry.
- Cardiology eval appreciated cont hep gtt
LBBB
- This appears to be rate-related phenomenon that patient has expressed in the past.
- Monitor on telemetry. Follow for resolution with improved ventricular rates.
- Evaluate for possible ischemia as noted below.
Non-SD related troponin elevation vs type II NSTEMI 2/2 heart failure
- Troponin peaked at 0.130 since trended down
-chest pain free
ASCVD
reported hx htn not on antihypertensives
- cont ASA statin
-lasix metoprolol
Hyperkalemia
-potassium restricted diet
-anticipate improvement with Lasix diuresis
CKD IV
- Stable. Renal function
-monitor on Lasix
Seizure Disorder
- Stable. Continue oxcarbazepine.
DVT Prophylaxis: On IV Heparin at present.
Code Status: DNR
Attempted to call family listed contacts [facility] Sandy sister and Kyle brother, no answers were received. Message was left for call back.
I spent a total of 50 minutes with the patient or on the floor. More than 50% of this time involved counseling and coordination of care.
Anticipated Discharge: > 48 hours
Subjective/Interval History
-
Date of Service: January 23, 2024
Seen and examined at bedside in no acute distress resting comfortably in bed. Awake Alert Conversant saturating well on low dose nasal cannula supplementation. Some aphasia noted. AOx1, oriented to self only. Reports significant abd pain new.
Cries in pain with slightest touch or suggestion of touch. Appears comfortable at rest however. Also appears to exhibit tenderness of lower ext's patient reports as 'ticklish' present for years.
Objective Data
-
Labs:
Laboratory Results
01/22/24 01/23/24 01/23/24
23:10 06:32 06:35
WBC 11.8 H 7.8
Hgb 9.6 L 9.7 L
Hct 29.5 L 30.7 L
Plt Count 415 H D 431 H
APTT 26.2 47.7 H
Sodium 141
Potassium 5.7 H
Chloride 108 H
Carbon Dioxide 23
BUN 40 H
Creatinine 1.6 H
Glucose 124 H
Calcium 9.0
01/23/24
13:00
WBC
Hgb
Hct
Plt Count
APTT Pending
Sodium
Potassium
Chloride
Carbon Dioxide
BUN
Creatinine
Glucose
Calcium
Vital Signs:
Vital Signs
Temp Pulse Resp BP Pulse Ox
98.1 F 115 27 111/60 94
01/23/24 07:50 01/23/24 10:00 01/23/24 10:00 01/23/24 10:00 01/23/24 10:00
I&O
01/22/24 01/23/24 01/24/24
06:59 06:59 06:59
Intake Total 0 / 0
Output Total 150 / 150
Balance -150 / -150
[2024-01-23 12:06] LABS: Glucose - Point of Care 93 mg/dl (70-99)
--- NOTE | 2024-01-23 14:00 | PTCARENOTE ---
pt with increased moist cough today. per Kimber [address], pt on mechanical soft diet with nectar thick liquids. speech unable to evaluate patient today. pt desatting to 88-89% on room air. oxygen placed at 2L nasal canula. will keep pt NPO except for
meds crushed in applesauce today until evaluated by speech tomorrow. discussed with Dr. Reynolds. continuing to monitor
[2024-01-23 14:13] LABS: APTT 66.4 Sec (23.4-35.0)
[2024-01-23] MEDS: LOPRESSOR 12.5 MG PO ×2 (14:19→20:15)
[2024-01-23] MEDS: TRILEPTAL 600 MG PO ×2 (14:20→20:15)
[2024-01-23] MEDS: LOW STRENGTH ASPIRIN 81 MG PO (14:20)
[2024-01-23] MEDS: MORPHINE SULFATE 2 MG IV ×2 (15:55→20:37)
[2024-01-23] MEDS: SENOKOT-S 1 TABLET PO ×2 (18:16→20:19)
[2024-01-23 18:38] LABS: Glucose - Point of Care 118 mg/dl (70-99)
[2024-01-23] MEDS: LIPITOR 40 MG PO (22:06)
[2024-01-23 22:37] LABS: Glucose - Point of Care 113 mg/dl (70-99)
[2024-01-23 22:39] LABS: APTT 166.5 Sec (23.4-35.0)
--- NOTE | 2024-01-23 22:53 | PTCARENOTE ---
Pt PTT result 166.5, per protocol hold 1 hour decrease by 200U/hr and restart. See work list. Pt on BiPAP at HS, appears to be tolerating well, reparation even and unlabored. Assessment care and vitals as charted.
[2024-01-24] VITALS (22 sets, daily range): BP systolic 88–135; BP diastolic 50–109; PULSE 2–108; BMI 27.3
--- NOTE | 2024-01-24 03:50 | PTCARENOTE ---
Pt received from previous RN. Pt resting. Pt wearing BIPAP, tolerating, respirations even and unlabored, chest rise and fall noted. Satting 98%. BIPAP to 4L 02, settings 08/11. Heparin drip at 950 units/ hr, 9.5 ml/hr, Per protocol, see med titration
documentation. Next PTT @ 6am. No acute changes at this time. Call singleton in reach.
[2024-01-24 06:20] LABS: Hematocrit 30.3 % (37.0-47.0); Hemoglobin 9.5 g/dL (12.0-16.0); Mean Corp Hgb Conc. 31.4 g/dL (33.0-37.0); Mean Corpuscular Hgb 30.8 pg (27.0-31.0); Mean Corpuscular Volume 98.4 fL (81.0-99.0); Mean Platelet Volume 10.3 fL (7.4-10.4); Platelet Count 359 10^3/uL (130-400); Red Blood Cell Count 3.08 10^6/uL (4.20-5.40); Red Cell Dist. Width 13.8 % (11.5-14.5); White Blood Cell Count 8.4 10^3/uL (4.8-10.8)
[2024-01-24 06:44] LABS: APTT > 200 Sec (23.4-35.0)
--- NOTE | 2024-01-24 07:10 | W.PN.HOSP.TC ---
Today's Communication/Plan
-
cont diuresis
increased metoprolol, hep gtt to Xarelto as per Cardio
Dysphagia diet, aspiration precautions, meds crushed in puree, pending VSE in AM
PT/OT
wean O2 supplementation as tolerated
Assessment / Plan
Assessment / Plan
Physical Exam
General:no acute distress
HEENT: Moist mucous membranes on nasal cannula PERRLA right sided facial droop appears baseline from prior stroke
Respiratory: Bibasilar Crackles
Cardiac: S1/S2, Irregularly Irregular
GI: Soft, Non Distended, Normal Bowel Sounds, Umbilical hernia soft reducible
Musculoskeletal: No Clubbing, No Cyanosis and Other (Trace pedal edema.) Contracted right hand wrist appears baseline from prior stroke
Neuro: Awake and Alert; oriented only to self, short term memory issues, some aphasia noted relatively fluent speech
A/P: Patient is a 83y F from [place] with PMH significant for ASCVD, prior CVA and dementia who presents to ED for evaluation of sudden onset of SOB / respiratory distress.
Pulmonary Edema
CHF - New Diagnosis
- CXR with pulmonary edema, BNP markedly elevated compared to prior.
- IV Lasix BID and follow weights, I/Os, etc.
- titrate off of BiPAP as tolerated
- Check Echo - last done in 2021 with LVEF 70-75%, concentric LVH and mild .
-Cardio eval appreciated cont diuresis
Paroxysmal Atrial Fibrillation / Flutter
- Cardiology eval appreciated low dose metoprolol started since titrated up
- Monitor on telemetry.
- Cardiology eval appreciated hep gtt transitioned to Xarelto renally dosed 01/23
LBBB
- Monitor on telemetry.
Non-[place] related troponin elevation vs type II NSTEMI 2/2 heart failure
- Troponin peaked at 0.130 since trended down
-chest pain free
ASCVD
reported hx htn not on antihypertensives
- cont ASA statin
-lasix metoprolol
Hyperkalemia resolved w/ diuresis diet restriction
-potassium restricted diet discontinued
CKD IV
- Stable. Renal function
-monitor on Lasix
Dysphagia
Hx CVA w/ residual right sided deficits, aphasia, cognitive impairment
Speech eval appreciated Puree [place] thick diet, VSE pending, meds crushed in puree, aspiration protocol
Seizure Disorder
- Stable. Continue oxcarbazepine.
DVT Prophylaxis: hep gtt to transition to renally dosed Xarelto as per Cardio
Code Status: DNR
Contact list needs to be updated. Patient's list contact Brother Kyle Chery 2 years ago. His son, Patient's nephew, Kyle Chery Jr is patient's new POA as per sister Sandy listed contact in [employer]. Patient's Sister Sandy does
not have Patient's nephew's contact information. Case mgmt consult requested assistance locating NOK POA
discussed with patient and patient's sister Sandy
I spent a total of 50 minutes with the patient or on the floor. More than 50% of this time involved counseling and coordination of care.
Anticipated Discharge: 24 - 48 hours
Subjective/Interval History
-
Date of Service: January 24, 2024
resting comfortably in bed no acute distress. Reports overall feeling well. Conversation limited with aphasia.
Objective Data
-
Labs:
Laboratory Results
01/23/24 01/24/24
21:29 06:05
WBC 8.4
Hgb 9.5 L
Hct 30.3 L
Plt Count 359
APTT 166.5 H* > 200 H*
Sodium Pending
Potassium Pending
Chloride Pending
Carbon Dioxide Pending
BUN Pending
Creatinine Pending
Glucose Pending
Calcium Pending
Vital Signs:
Vital Signs
Temp Pulse Resp BP Pulse Ox
97.8 F 109 22 103/62 90
01/24/24 03:00 01/24/24 06:04 01/24/24 06:04 01/24/24 05:00 01/24/24 06:04
I&O
01/23/24 01/24/24 01/25/24
06:59 06:59 06:59
Intake Total 0 / 0
Output Total 200 / 200 525 / 525
Balance -200 / -200 -525 / -525
[2024-01-24 08:37] LABS: Glucose - Point of Care 94 mg/dl (70-99)
--- NOTE | 2024-01-24 09:21 | W.PN.CD ---
Today's Communication / Plan
-
Increase metop
Stop heparin gtt start xarelto 15 mg renally adjusted
Impression / Plan
-
83-year-old female with prior CVA, hypertension, dyslipidemia, COPD, seizure disorder, and dementia who presented to the emergency department yesterday with a chief complaint of shortness of breath. She was found to have pulmonary edema likely
acute.
Pulmonary edema
Acute heart failure weight goal 141 lbs 144 today
-Diuresis with furosemide 40 mg IV twice daily, likely transition to oral tomorrow
-Follow daily weight, I/O and BMP with diuresis
-Unable to provide heart failure education due to dementia
-Update echocardiogram
Atrial fibrillation/flutter with RVR
-Increase metoprolol today
-Rate control may be challenging giving her borderline blood pressure, avoiding digoxin given her hyperkalemia & CKD
-Oral Anticoagulation: STOP Heparin drip, Xarelto 15 mg, renally adjusted
-[id number]: score 6 (Heart failure, age 75 or more, prior Stroke/TIA, female gender)
Abnormal troponin, likely nonischemic myocardial injury in the setting of tachyarrhythmia
-Peak troponin 0.130
-Chest pain free
Abdominal pain, per primary
Hyperkalemia
CKD, follow with diuresis
Aortic stenosis, update echocardiogram 01/25/2024
Transient left bundle branch block
Prior CVA
PVCs
Hypertension, history of, not currently on any agents
Dementia
Physical Exam
Vital Signs/Labs
Vital Signs
Temp Pulse Resp BP Pulse Ox
97.8 F 109 22 103/62 90
01/24/24 03:00 01/24/24 06:04 01/24/24 06:04 01/24/24 05:00 01/24/24 06:04
01/23/24 01/24/24 01/25/24
06:59 06:59 06:59
Actual Weight 144 lb 13.499 oz 144 lb 6.444 oz
01/24/24 06:05
APTT > 200 Sec (23.4-35.0) H* 01/24/24 06:05
Magnesium Cancelled 01/24/24 08:29
01/22/24
18:11
Ruy-X-Qhcrembzsiz Pept [id number]
LAB Results
01/22/24 01/22/24 01/23/24
06:00 18:11 01:13
Troponin I Cancelled 0.065 H* 0.130 H* D
01/23/24
06:32
Troponin I 0.099 H*
Physical Exam
Constitutional: No acute distress
EENT: Anicteric
Cardiovascular: Pedal edema is absent, Rhythm/rate is irregular and Systolic murmur present
Respiratory: Respiratory effort normal and Lungs clear to auscul.
GI: Soft
Neuro/Psych: AO x 3
Data Reviewed
-
Date of Service: January 24, 2024
EKG: Tracing Personally Visualized and interpreted (af)
Labs: Labs Reviewed by me
[2024-01-24] MEDS: NOVOLOG FLEXPEN-LOW RESISTANCE SC ×2 (10:06→14:30)
[2024-01-24] MEDS: LASIX 40 MG IV ×2 (10:07→16:32)
[2024-01-24] MEDS: LOW STRENGTH ASPIRIN 81 MG PO (10:07)
[2024-01-24] MEDS: LOPRESSOR 25 MG PO ×2 (10:07→19:29)
[2024-01-24] MEDS: MIRALAX 17 GRAMS PO (10:07)
[2024-01-24] MEDS: SENOKOT-S 1 TABLET PO ×2 (10:07→19:29)
[2024-01-24] MEDS: TRILEPTAL 600 MG PO ×2 (10:07→19:29)
[2024-01-24] MEDS: DESENEX/MITRAZOL/ZEASORB 1 APPLIC TOPICAL ×2 (10:08→19:29)
[2024-01-24] MEDS: NSS (PRESERVATIVE FREE) 10 ML IV (10:08)
[2024-01-24] MEDS: PROTONIX IV 40 MG IV (10:08)
[2024-01-24] MEDS: LOPRESSOR PO (10:13)
[2024-01-24 11:53] LABS: Blood Urea Nitrogen 53 mg/dl (7-17); Carbon Dioxide 24 mmol/L (22-30); Chloride 108 mmol/L (98-107); Estimated Creatinine Clearance 22 ml/min; Glucose 96 mg/dl (70-99); Magnesium 2.4 mg/dl (1.6-2.3); Potassium 4.5 mmol/L (3.5-5.1); Sodium 143 mmol/L (135-145); eGFR 29.76
--- NOTE | 2024-01-24 12:08 | PTCARENOTE ---
Patient AAOx self, [place], confused but pleasant. Reoriented. Heparin gtt infusing per protocol, see documentation. Patient NST on monitor. VSS. Moist nonproductive cough, BLACK, on 2L NC, wore bipap overnight. Continuing to closely monitor patient.
--- NOTE | 2024-01-24 13:32 | PTOTSP ---
SPEECH THERAPY SWALLOW EVALUATION:
Clinical signs of oropharyngeal dysphagia, chronic in patient with known history of oropharyngeal dysphagia related to prior CVA/dementia. Patient with 3 prior VSEs, most recently in 09/2021. Recommend a current Videofluoroscopic Swallowing Study to
further assess swallow physiology at this point in time, as patient currently admitted with possible severe bilateral pneumonia per CXR. Recommend diet downgrade to IDDSI Level 4 Puree, Mildly-thick liquids until VFSS. Meds crushed in puree. Strict
aspiration precautions includin:1 assist/100% supervision with meals to ensure use of strategies; Upright positioning; Small single sips/bites; Slow rate of intake. Oral care 3x/day. Eat only when alert. Should patient exhibit signs concerning
for aspiration, or a decline in mental or respiratory status, d/c oral diet and make NPO prior to VFSS. Speech therapy to follow and provide further recommendations following VFSS.
RECOMMEND:
1) Videofluoroscopic Swallowing Study
2) IDDSI Level 4 Puree, Mildly-thick liquids
3) Meds crushed in puree
4) Strict aspiration precautions includin:1 assist/100% supervision with meals to ensure use of strategies; Upright positioning; Small single sips/bites; Slow rate of intake. Oral care 3x/day. Eat only when alert. Should patient exhibit signs
concerning for aspiration, or a decline in mental or respiratory status, d/c oral diet and make NPO prior to VFSS
5) Speech therapy to follow
[2024-01-24 14:01] LABS: Glucose - Point of Care 146 mg/dl (70-99)
[2024-01-24 17:11] LABS: Glucose - Point of Care 165 mg/dl (70-99)
[2024-01-24] MEDS: XARELTO 15 MG PO (17:17)
[2024-01-24] MEDS: NOVOLOG FLEXPEN-LOW RESISTANCE 1 UNITS SC (17:40)
[2024-01-24] MEDS: LIPITOR 40 MG PO (19:29)
[2024-01-24 21:40] LABS: Glucose - Point of Care 151 mg/dl (70-99)
[2024-01-25] VITALS (11 sets, daily range): BP systolic 90–160; BP diastolic 58–86; PULSE 2; BMI 27.0
[2024-01-25 04:51] LABS: Hematocrit 30.6 % (37.0-47.0); Hemoglobin 9.2 g/dL (12.0-16.0); Mean Corp Hgb Conc. 30.1 g/dL (33.0-37.0); Mean Corpuscular Volume 99.7 fL (81.0-99.0); Platelet Count 318 10^3/uL (130-400); Red Blood Cell Count 3.07 10^6/uL (4.20-5.40); Red Cell Dist. Width 13.8 % (11.5-14.5); White Blood Cell Count 8.1 10^3/uL (4.8-10.8)
--- NOTE | 2024-01-25 04:53 | PTCARENOTE ---
while sleeping, pt oxygen dropping to 88% on 3L NC. oxygen increased to 4L- now 92%.
[2024-01-25 05:17] LABS: Blood Urea Nitrogen 66 mg/dl (7-17); Calcium 8.7 mg/dl (8.4-10.2); Carbon Dioxide 24 mmol/L (22-30); Chloride 107 mmol/L (98-107); Estimated Creatinine Clearance 21 ml/min; Glucose 127 mg/dl (70-99); Magnesium 2.2 mg/dl (1.6-2.3); Phosphorus 5.7 mg/dl (2.5-4.5); Potassium 4.7 mmol/L (3.5-5.1); Sodium 140 mmol/L (135-145); eGFR 27.78
--- NOTE | 2024-01-25 07:48 | W.PN.HOSP.TC ---
Addendum entered and electronically signed by Heidi Reynolds MD 01/25/24 23:51:
Acute on CKD III vs CKD IV
Addendum entered and electronically signed by Heidi Reynolds MD 01/25/24 23:48:
Acute respiratory failure, POA, resolving
Original Note:
Today's Communication/Plan
-
Rate control diuresis as per Cardio
Medically stable for downgrade to Tele
cont bowel regimen for constipation
once suppository, once fleet enema
Assessment / Plan
Assessment / Plan
Physical Exam
General:no acute distress
HEENT: Moist mucous membranes on nasal cannula PERRLA right sided facial droop appears baseline from prior stroke
Respiratory: Bibasilar Crackles
Cardiac: S1/S2, Irregularly Irregular
GI: Soft, Non Distended, Normal Bowel Sounds, Umbilical hernia soft reducible, abd tenderness noted
Musculoskeletal: No Clubbing, No Cyanosis and Other (Trace pedal edema.) Contracted right hand wrist appears baseline from prior stroke
Neuro: Awake and Alert; oriented only to self, short term memory issues, some aphasia noted relatively fluent speech
A/P: [facility] 83[facility] significant for ASCVD, prior CVA and dementia who presents to ED for evaluation of sudden onset of SOB / respiratory distress.
Pulmonary Edema
CHF - New Diagnosis
- CXR with pulmonary edema, BNP markedly elevated compared to prior.
- daily weights I/O's
-IV lasix transitioned to PO as per cardio, starting 01/26 as patient is under weight goal 65.45 kg
- titrate off of BiPAP as tolerated
- ECHO appreciated EF 74% Stage II diastolic dysfunction mild mod MR mild mod TR, compared to previous ECHO 09/2021 septal apical wall motion changed with new LBBB
-Cardio eval appreciated
Constipation
bowel regimen miralax colace senna
once suppository and later once Fleet enema attempted 01/25/24
Considering milk and molasses enema
Paroxysmal Atrial Fibrillation / Flutter
- Cardiology eval appreciated low dose metoprolol started since titrated up to 50 mg BID
- Monitor on telemetry.
- Cardiology eval appreciated hep gtt transitioned to Xarelto renally dosed 01/23
LBBB
- Monitor on telemetry.
Non-[place] related troponin elevation vs type II NSTEMI 2/2 heart failure
- Troponin peaked at 0.130 since trended down
-chest pain free
ASCVD
reported hx htn not on antihypertensives
- cont statin, ASA discontinued in favor of Xarelto as per Cardio
-Lasix metoprolol
Hyperkalemia resolved w/ diuresis diet restriction
-potassium restricted diet discontinued
CKD IV
- Stable. Renal function
-monitor on Lasix
Dysphagia
Hx CVA w/ residual right sided deficits, aphasia, cognitive impairment
Speech eval appreciated Puree [place] thick diet, VSE pending, meds crushed in puree, aspiration protocol
Seizure Disorder
- Stable. Continue oxcarbazepine.
DVT Prophylaxis: hep gtt to transition to renally dosed Xarelto as per Cardio
Code Status: DNR
Contact list needs to be updated. Patient's listed contact Brother Kyle Chery 2 years ago.
Medically stable for downgrade to Tele
discussed with patient and patient's sister Sandy
I spent a total of 50 minutes with the patient or on the floor. More than 50% of this time involved counseling and coordination of care.
Anticipated Discharge: 24 - 48 hours
Subjective/Interval History
-
Date of Service: January 25, 2024
Reporting abdomen discomfort likely due to constipation. Denies nausea vomiting.
Objective Data
-
Labs:
Laboratory Results
01/24/24 01/25/24
23:00 04:31
WBC 8.1
Hgb 9.2 L
Hct 30.6 L
Plt Count 318
APTT Cancelled
Sodium 140
Potassium 4.7
Chloride 107
Carbon Dioxide 24
BUN 66 H
Creatinine 1.8 H
Glucose 127 H
Calcium 8.7
Vital Signs:
Vital Signs
Temp Pulse Resp BP Pulse Ox
98.9 F 110 17 105/61 96
01/25/24 03:18 01/25/24 06:00 01/25/24 06:00 01/25/24 06:00 01/25/24 06:00
I&O
01/24/24 01/25/24 01/26/24
06:59 06:59 06:59
Output Total 525 / 525 1350 / 1350
Balance -525 / -525 -1350 / -1350
[2024-01-25 07:55] LABS: Glucose - Point of Care 119 mg/dl (70-99)
[2024-01-25] MEDS: NOVOLOG FLEXPEN-LOW RESISTANCE SC ×2 (08:00→17:42)
[2024-01-25] MEDS: DESENEX/MITRAZOL/ZEASORB 1 APPLIC TOPICAL ×2 (08:10→21:05)
[2024-01-25] MEDS: MIRALAX 17 GRAMS PO (08:10)
[2024-01-25] MEDS: PROTONIX IV 40 MG IV (08:11)
[2024-01-25] MEDS: LASIX 40 MG IV ×2 (08:11→16:11)
[2024-01-25] MEDS: NSS (PRESERVATIVE FREE) 10 ML IV (08:11)
[2024-01-25] MEDS: LOPRESSOR 25 MG PO (08:12)
[2024-01-25] MEDS: LOW STRENGTH ASPIRIN 81 MG PO (08:12)
[2024-01-25] MEDS: TRILEPTAL 600 MG PO ×2 (08:12→21:01)
[2024-01-25] MEDS: SENOKOT-S 1 TABLET PO ×2 (08:12→21:00)
[2024-01-25] MEDS: DULCOLAX 10 MG RECTAL (09:28)
--- NOTE | 2024-01-25 11:55 | CARDSERVLU ---
Echocardiogram with Lumason completed after protocol screening completed. Allergies verified.
Patent IV site: __L AC___
IV site flushed with 0.9% NaCl pre and post administration.
Diluted bolus method utilized to enhance visualization of ventricular raya.
Total volume given: _1.5___ mL
Patient tolerated all procedures well without complications.
--- NOTE | 2024-01-25 11:59 | PTOTSP ---
Video Swallow Examination
Significant oral processing difficulty resulting in inefficient and ineffective mastication, reduced bolus formation and reduced oral control. Patient also with delayed onset of pharyngeal swallow and laryngeal vestibular closure which contributed
to trace aspiration of thin and mildly thick liquid. No significant pharyngeal stasis.
Recommend
1. Continue IDDSI Level 4 and downgrade to Moderately thick liquids
2. Meds crushed in applesauce
3. Supervision
4. Assist to feed
5. Aspiration precautions.
6. Clean mouth after meals.
Will follow and determine eligibility for water/ice chip protocol.
--- NOTE | 2024-01-25 12:11 | PTCARENOTE ---
Rec'd pt this AM.confused. incontinent of urine. Takes meds with much difficulty. had vSE today. Diet orders updated as a result. downgraded to tele.
[2024-01-25 12:50] LABS: Glucose - Point of Care 170 mg/dl (70-99)
[2024-01-25] MEDS: NOVOLOG FLEXPEN-LOW RESISTANCE 1 UNITS SC (12:51)
--- NOTE | 2024-01-25 13:06 | PN.CDI ---
CDI
- -
CDI:
Physician Documentation Request
Admit Date: 01/22/24 20:30
Dear Doctor Gail,
Please review the following and provide your response in the progress notes.
Clinical Indicators:
PN, 01/23
#CKD IV
#- Stable. Renal function
#-monitor on Lasix
Laboratory Tests
01/22/24 01/23/24 01/24/24
18:11 06:32 10:52
Creatinine 1.3 H 1.6 H 1.7 H
eGFR 41.06 32.00 29.76
01/25/24
04:31
Creatinine 1.8 H
eGFR 27.78
Please clarify which of the following accurately represents the patient's renal status:
Acute renal failure (with type, if appropriate on chronic kidney disease (CKD) - please provide stage - see criteria)
Acute kidney injury (non-traumatic) - see criteria
CKD IV
Other
Criteria for EVELINE*
1 Increase in serum creatinine by > or = to 0.3 mg/dL (> or = to 26.5 micromol/L) within 48 hours, OR
2 Increase in serum creatinine to > or = to 1.5 times baseline, which is known or presumed to have occurred within 7 days, OR
3 Urine volume < 0.5 nL/kg/hour for six hours
Stages of Chronic Kidney Disease*
Level Description GFR
G1 Normal or High >90
G2 Mildly decreased 60-89
G3a Mildly to moderately decreased 45-59
G3b Moderately to severely decreased 30-44
G4 Severely decreased 15-29
G5 Kidney failure <15
Use of terms such as suspected, likely, concern for, or probable (associated with a specific diagnosis that is being evaluated, monitored, or treated as if it exists) are acceptable and can be coded in the inpatient setting, when documented at the
time of discharge.
Thank you,
Veena Marie COMMERCIAL CONSTRUCTION ESTIMATOR CCDS
CDI Specialist
please contact via tiger text
Please use your independent medical judgment in providing your response.
*Source: Kidney Disease: Improving Global Outcomes (KDIGO) 2012
--- NOTE | 2024-01-25 13:10 | PN.CDI ---
CDI
- -
CDI:
Physician Documentation Request
Admit Date: 01/22/24 20:30
Dear Doctor Gail,
Please review the following and provide your response in the progress notes.
Clinical Indicators:
#01/21 EMS transport
#15 L O2
#...presents to ED for evaluation of sudden onset of SOB / respiratory distress.
Selected Entries
01/22/24
18:14 01/22/24
19:09 01/22/24
22:00
Flow liters per minute # 15 10 10
Oxygen Mode of Delivery Non-rebreather
mask BiPAP BiPAP
Selected Entries
01/22/24
22:57 01/23/24
08:30
Flow liters per minute # 10 10
Oxygen Mode of Delivery BiPAP BiPAP
Please clarify which of the following accurately represents the patient's respiratory status:
Acute respiratory failure, POA, resolved/resolving
Acute respiratory distress
Hypoxia
Other
Additional information for Respiratory Failure:
Recognized criteria for Respiratory Failure (Source: [facility] Hospitalist Jul 2013)
Symptoms Please indicate type if known
1. Tachypnea, SOB, dyspnea Hypoxic
2. Use of accessory muscles Hypercapnic
3. Pallor or cyanosis Hypoxic and Hypercapnic
4. Anxiety or restlessness
5. Unable to speak in full sentences
Supplemental O2 of > 40% (5LPM) Intubation is not required
Use of terms such as suspected, likely, concern for, or probable (associated with a specific diagnosis that is being evaluated, monitored, or treated as if it exists) are acceptable and can be coded in the inpatient setting, when documented at the
time of discharge.
Thank you,
Veena Marie RN BSN CCDS
CDI Specialist
Please contact via tiger text
Please use your independent medical judgment in providing your response.
--- NOTE | 2024-01-25 13:55 | PTCARENOTE ---
Pt transported to [facility]. Report given to TYLOR Ventura
--- NOTE | 2024-01-25 15:18 | CM ---
Patient from [facility] with Dx Pulmonary Edema, new CHF, Paroxysmal Atrial Fibrillation / Flutter, LBBB. O2 4L. Receiving IV Lasix. PT & PT; expressive aphasia, recommend skilled rehab. Per nurse assessment; confused, garbled speech.
CM Consult: confirm primary contact - see consult details.
Spoke with Adm Carmens [facility]; the patient has resided at [facility] since 2006, remains there for LTC and is on an [place] bed hold. The patient is dependent for ADLs and is non-verbal. The primary contact for the patient is confirmed as
her sister Sandy- the DON has had contact with her.
Spoke with Sandy, patient's sister; she confirms that she has been the primary contact for her sister since their brother Vik , who was POA. The patient does not have a POA currently. When her brother Vik passed, his son/the patient's
nephew Vik went to the patient's house and took all of the paperwork out of the house, did not provide his phone # and has had no further contact with Sandy. Sandy was upset because her brother Vik had been paying into a terminal computer operator care
insurance policy for the patient for many years, and Sandy does not have that information.
Message sent to Dr Reynolds confirming patient's sister Sandy is her primary contact/only contact.
Plan return to [facility] when medically ready.
[2024-01-25] MEDS: FLEET MINERAL OIL ENEMA 133 ML RECTAL (16:42)
[2024-01-25 17:08] LABS: Glucose - Point of Care 136 mg/dl (70-99)
--- NOTE | 2024-01-25 17:13 | W.PN.CD ---
Addendum entered and electronically signed by Jared Navarro MD 01/25/24 17:21:
Will start Oral Lasix 01/27/2024 as she is a bit under goal weight
Echo noted.
-
-
Original Note:
Today's Communication / Plan
-
Continue oral Xarelto
Increase metoprolol for a bit more heart rate control
Stop ASA
Stop IV Lasix
Move to PO Lasix one time a day tomorrow
Impression / Plan
-
83-year-old female with prior CVA, hypertension, dyslipidemia, COPD, seizure disorder, and dementia who presented to the emergency department yesterday with a chief complaint of shortness of breath. She was found to have pulmonary edema likely
acute.
Pulmonary edema
Acute heart failure weight goal 141 lbs / 65.45 kg. Today 64.9 kg
-Diuresis => move to PO Lasix
-Follow daily weight, I/O and BMP with diuresis
-Unable to provide heart failure education due to dementia
-Update echocardiogram
Atrial fibrillation/flutter with RVR
-Increase metoprolol again today
-Rate control may be challenging giving her borderline blood pressure, avoiding digoxin given her hyperkalemia & CKD
-Oral Anticoagulation: Xarelto 15 mg, renally adjusted
-[id number]: score 6 (Heart failure, age 75 or more, prior Stroke/TIA, female gender)
Abnormal troponin, likely nonischemic myocardial injury in the setting of tachyarrhythmia
-Peak troponin 0.130
-Chest pain free
Abdominal pain, per primary
Hyperkalemia
CKD, follow with diuresis
Aortic stenosis, update echocardiogram 01/25/2024
Transient left bundle branch block
Prior CVA
PVCs
Hypertension, history of, not currently on any agents
Dementia
Physical Exam
Vital Signs/Labs
Vital Signs
Temp Pulse Resp BP Pulse Ox
96.9 F L 107 18 136/82 96
01/25/24 15:33 01/25/24 15:33 01/25/24 15:33 01/25/24 15:33 01/25/24 15:33
01/24/24 01/25/24 01/26/24
06:59 06:59 06:59
Actual Weight 65.5 kg 64.9 kg
01/25/24 04:31
01/25/24 04:31
APTT Cancelled 01/24/24 23:00
Magnesium 2.2 mg/dl (1.6-2.3) 01/25/24 04:31
01/22/24
18:11
Hjl-Q-Zroqyslhnlc Pept [id number]
LAB Results
01/22/24 01/22/24 01/23/24
06:00 18:11 01:13
Troponin I Cancelled 0.065 H* 0.130 H* D
01/23/24
06:32
Troponin I 0.099 H*
Physical Exam
Constitutional: No acute distress
EENT: Anicteric
Cardiovascular: Rhythm & rate is regular, Pedal edema is absent and S1S2 is normal
Respiratory: Respiratory effort normal and Lungs clear to auscul.
GI: Soft and Distention absent
Neuro/Psych: Alert
Data Reviewed
-
Date of Service: January 25, 2024
--- NOTE | 2024-01-25 17:29 | PTCARENOTE ---
Pt without bowel movement s/p Dulcolax this morning. Dr. Reynolds notified. New order for Fleet [employer] enema acknowledged and administered. Pt with small hard formed brown stool. States relief.
[2024-01-25] MEDS: XARELTO 15 MG PO (17:43)
[2024-01-25] MEDS: LOPRESSOR 50 MG PO (21:00)
[2024-01-25] MEDS: COLACE 100 MG PO (21:00)
[2024-01-25] MEDS: LIPITOR 40 MG PO (21:01)
[2024-01-25 21:18] LABS: Glucose - Point of Care 143 mg/dl (70-99)
[2024-01-26] VITALS (10 sets, daily range): BP systolic 102–140; BP diastolic 57–74; PULSE 2; BMI 26.0
--- NOTE | 2024-01-26 01:37 | PTCARENOTE ---
O2 sats noted to be 88% on 3L while asleep. Oxygen increased to 4L - now > 93%. Placed on bipap by RT. Pt noted to briefly go into vtach, then back to sinus tach. CAKE [employer] [place] aware. EKG done. Pt asleep and remained asymptomatic.
[2024-01-26 06:23] LABS: Hematocrit 28.8 % (37.0-47.0); Hemoglobin 8.9 g/dL (12.0-16.0); Mean Corp Hgb Conc. 30.9 g/dL (33.0-37.0); Mean Corpuscular Hgb 30.5 pg (27.0-31.0); Mean Corpuscular Volume 98.6 fL (81.0-99.0); Mean Platelet Volume 10.3 fL (7.4-10.4); Platelet Count 278 10^3/uL (130-400); Red Blood Cell Count 2.92 10^6/uL (4.20-5.40); Red Cell Dist. Width 13.9 % (11.5-14.5); White Blood Cell Count 5.3 10^3/uL (4.8-10.8)
[2024-01-26 07:06] LABS: Blood Urea Nitrogen 70 mg/dl (7-17); Calcium 8.8 mg/dl (8.4-10.2); Carbon Dioxide 27 mmol/L (22-30); Chloride 106 mmol/L (98-107); Estimated Creatinine Clearance 19 ml/min; Glucose 103 mg/dl (70-99); Magnesium 2.2 mg/dl (1.6-2.3); Phosphorus 4.8 mg/dl (2.5-4.5); Potassium 4.1 mmol/L (3.5-5.1); Sodium 142 mmol/L (135-145); eGFR 26.04
[2024-01-26 08:02] LABS: Glucose - Point of Care 103 mg/dl (70-99)
--- NOTE | 2024-01-26 08:36 | W.PN.CD ---
Today's Communication / Plan
-
-Patient is scheduled to begin Lasix 60 mg PO daily tomorrow.
-Metoprolol tartrate was increased to 50 mg PO BID; continue for now.
-Adequate rate control may be challenging giving her borderline blood pressure; avoiding digoxin given her hyperkalemia and CKD.
Impression / Plan
-
83-year-old female with prior CVA, hypertension, dyslipidemia, COPD, seizure disorder, and dementia who presented to the emergency department yesterday with a chief complaint of shortness of breath. She was found to have pulmonary edema likely
acute.
Pulmonary edema
Acute heart failure weight goal 141 lbs / 65.45 kg; yesterday 64.9 kg
-Patient is scheduled to begin Lasix 60 mg PO daily tomorrow.
-Follow daily weight, I/O and BMP with diuresis
-Unable to provide heart failure education due to dementia
-Update echocardiogram
Atrial fibrillation/flutter with RVR
-Metoprolol tartrate was increased to 50 mg PO BID; continue for now.
-Adequate rate control may be challenging giving her borderline blood pressure; avoiding digoxin given her hyperkalemia and CKD.
-Oral Anticoagulation: Xarelto 15 mg, renally adjusted
-[id number]: score 6 (Heart failure, age 75 or more, prior Stroke/TIA, female gender)
Abnormal troponin, likely nonischemic myocardial injury in the setting of tachyarrhythmia
-Peak troponin 0.130
-Chest pain free
Abdominal pain, per primary
Hyperkalemia
CKD, follow with diuresis
Aortic stenosis, update echocardiogram 01/25/2024
Transient left bundle branch block
Prior CVA
PVCs
Hypertension, history of, not currently on any agents
Dementia
Physical Exam
Vital Signs/Labs
Vital Signs
Temp Pulse Resp BP Pulse Ox
97.9 F 111 20 128/65 98
01/26/24 07:00 01/26/24 07:00 01/26/24 07:00 01/26/24 07:00 01/26/24 07:00
01/25/24 01/26/24 01/27/24
06:59 06:59 06:59
Actual Weight 64.9 kg 62.397 kg
01/26/24 05:37
01/26/24 05:37
APTT Cancelled 01/24/24 23:00
Magnesium 2.2 mg/dl (1.6-2.3) 01/26/24 05:37
01/22/24
18:11
Uws-P-Ruptlwzlglg Pept
Physical Exam
Constitutional: No acute distress and Comfortable
EENT: Anicteric
Cardiovascular: Pedal edema is absent, Systolic murmur present (09/12), S1S2 is normal and Other (tachycardic)
Respiratory: Respiratory effort normal and Rhonchi Present
GI: Soft
Neuro/Psych: Alert
Other: Skin (Warm, dry)
Data Reviewed
-
Date of Service: January 26, 2024
EKG: Tracing Personally Visualized and interpreted (Telemetry: Atrial flutter at 110-120)
Medical Tests (PFT, Pathology etc): Discussed with Nurse
Labs: Labs Reviewed by me
[2024-01-26] MEDS: MIRALAX 17 GRAMS PO (08:45)
[2024-01-26] MEDS: NOVOLOG FLEXPEN-LOW RESISTANCE SC ×2 (08:45→12:14)
[2024-01-26] MEDS: DESENEX/MITRAZOL/ZEASORB 1 APPLIC TOPICAL ×2 (08:45→20:40)
[2024-01-26] MEDS: NSS (PRESERVATIVE FREE) 10 ML IV (08:45)
[2024-01-26] MEDS: PROTONIX IV 40 MG IV (08:45)
[2024-01-26] MEDS: LOPRESSOR 50 MG PO (08:46)
[2024-01-26] MEDS: TRILEPTAL 600 MG PO ×2 (08:46→22:12)
[2024-01-26] MEDS: SENOKOT-S 1 TABLET PO (08:46)
--- NOTE | 2024-01-26 08:52 | W.PN.HOSP.TC ---
Today's Communication/Plan
-
Increase laxatives
Discharge to long-term tomorrow
Assessment / Plan
Assessment / Plan
A/P: Patient is a 83y F from [facility] with PMH significant for ASCVD, prior CVA and dementia who presents to ED for evaluation of sudden onset of SOB / respiratory distress.
Pulmonary Edema
CHF - New Diagnosis
- CXR with pulmonary edema, BNP markedly elevated compared to prior.
- daily weights I/O's
-IV lasix transitioned to PO as per cardio, starting 01/26 as patient is under weight goal 65.45 kg
- titrate off of BiPAP as tolerated
- ECHO appreciated EF 74% Stage II diastolic dysfunction mild mod MR mild mod TR, compared to previous ECHO 09/2021 septal apical wall motion changed with new LBBB
-Cardio eval appreciated
Constipation
-KUB shows moderate amount of stool present from the right colon through the splenic flexure
-Improving, increase bowel regimen
Paroxysmal Atrial Fibrillation / Flutter
- Cardiology eval appreciated low dose metoprolol started since titrated up to 50 mg BID
- Monitor on telemetry.
- Cardiology eval appreciated hep gtt transitioned to Xarelto renally dosed 01/23
LBBB
- Monitor on telemetry.
Non-[place] related troponin elevation vs type II NSTEMI 2/2 heart failure
- Troponin peaked at 0.130 since trended down
-chest pain free
ASCVD
reported hx htn not on antihypertensives
- cont statin, ASA discontinued in favor of Xarelto as per Cardio
-Lasix metoprolol
Hyperkalemia resolved w/ diuresis diet restriction
-potassium restricted diet discontinued
CKD IV
- Stable. Renal function
-monitor on Lasix
Dysphagia
Hx CVA w/ residual right sided deficits, aphasia, cognitive impairment
Speech eval appreciated Puree [place] thick diet, VSE pending, meds crushed in puree, aspiration protocol
Seizure Disorder
- Stable. Continue oxcarbazepine.
DVT Prophylaxis: hep gtt to transition to renally dosed Xarelto as per Cardio
Code Status: DNR
Contact list needs to be updated. Patient's listed contact Brother Kyle Chery 2 years ago.
Physical Exam
General:no acute distress
HEENT: Moist mucous membranes on nasal cannula PERRLA right sided facial droop appears baseline from prior stroke
Respiratory: Bibasilar Crackles
Cardiac: S1/S2, Irregularly Irregular
GI: Soft, Non Distended, Normal Bowel Sounds, Umbilical hernia soft reducible, abd tenderness noted
Musculoskeletal: No Clubbing, No Cyanosis and Other (Trace pedal edema.) Contracted right hand wrist appears baseline from prior stroke
Neuro: Awake and Alert; oriented only to self, short term memory issues, some aphasia noted relatively fluent speech
Anticipated Discharge: Within 24 hours
Subjective/Interval History
-
Date of Service: January 26, 2024
Patient reports having 1 bowel movement. Denies shortness of breath, chest pain. No fever, no vomiting.
Objective Data
-
Labs:
Laboratory Results
01/26/24
05:37
WBC 5.3
Hgb 8.9 L
Hct 28.8 L
Plt Count 278
Sodium 142
Potassium 4.1
Chloride 106
Carbon Dioxide 27
BUN 70 H
Creatinine 1.9 H
Glucose 103 H
Calcium 8.8
Vital Signs:
Vital Signs
Temp Pulse Resp BP Pulse Ox
97.9 F 111 20 128/65 98
01/26/24 07:00 01/26/24 07:00 01/26/24 07:00 01/26/24 07:00 01/26/24 07:00
I&O
01/25/24 01/26/24 01/27/24
06:59 06:59 06:59
Intake Total 120 / 120
Output Total 1350 / 1350 350 / 350
Balance -1350 / -1350 -230 / -230
--- NOTE | 2024-01-26 09:06 | PTCARENOTE ---
PT tele monitor reading VTach with HR of 108. Pt asymptomatic. Horseshoer Clif notified and informed RN not true Vtach.
[2024-01-26] MEDS: LOPRESSOR 25 MG PO (09:37)
[2024-01-26] MEDS: DUPHALAC/CHRONULAC 20 GRAMS PO (11:41)
[2024-01-26 12:06] LABS: Glucose - Point of Care 138 mg/dl (70-99)
--- NOTE | 2024-01-26 14:18 | W.HF.CON ---
Heart Failure
- LV Function
Left ventricular function study result: LV Ejection fraction >40%
Ejection Fraction Percentage: 74
- ARNI
Patient already on ARNI: No
Heart Failure ARNI Not Indicated: LV Ejection Fraction >/= 40%
- ACEI/ARB
Patient already on ACEI/ARB: No
Heart Failure ACEI/ARB Not Indicated: LV Ejection Fraction > 40%
- Beta Lina
Patient already on Evidence Based Beta Lina: No
Heart Failure Evidence Based Beta Lian Not Indicated: LV Ejection Fraction > 40%
- Mineralocorticord Receptor Antagonist
Patient already on MRA: No
Heart Failure MRA Not Indicated: LV Ejection Fraction > 40%
- SGLT-2 Inhibitor
Patient already on SGLT-2 Inhibitor: No
Heart Failure SGLT-2 Inhibitor Not Indicated: LV Ejection Fraction >40%
- Afib Anticoagulation
Patient already on Anticoagulation for Afib: Yes
- NYHA CHF Classification
NYHA CHF Classification Level: Class III - Symptoms w/ min exertion, interferes w/ nml daily activity (COPD)
- ACC/AHA Stage
ACC/AHA Stage: Stage C: Symptomatic Heart Failure
[2024-01-26 16:18] LABS: Glucose - Point of Care 180 mg/dl (70-99)
[2024-01-26] MEDS: XARELTO 15 MG PO (16:59)
[2024-01-26] MEDS: NOVOLOG FLEXPEN-LOW RESISTANCE 1 UNITS SC (17:01)
[2024-01-26 21:13] LABS: Glucose - Point of Care 237 mg/dl (70-99)
[2024-01-26] MEDS: LOPRESSOR 75 MG PO (21:57)
[2024-01-26] MEDS: DUPHALAC/CHRONULAC PO (22:00)
[2024-01-26] MEDS: MIRALAX PO (22:00)
[2024-01-26] MEDS: SENOKOT-S PO (22:00)
[2024-01-26] MEDS: LIPITOR PO (22:00)
[2024-01-27] VITALS (10 sets, daily range): BP systolic 114–160; BP diastolic 55–64; PULSE 2–98; BMI 25.2
--- NOTE | 2024-01-27 02:50 | PTCARENOTE ---
@0230;POX alarm beeping.Pt had pull BIPAP off her nose and POX 83% on room air. BIPAP reapplied and POX =95% @0240
--- NOTE | 2024-01-27 05:44 | PTCARENOTE ---
Pt pulled off BIPAP x5 during this shift and POX would drop in low 80's .When reapplying BIPAP mask properly POX would come back up to 94-96%.
--- NOTE | 2024-01-27 06:01 | PTCARENOTE ---
@2200; Pt was unable to take her duphalac ,miralax and senkot last evening.
[2024-01-27 07:08] LABS: Hemoglobin 9.9 g/dL (12.0-16.0); Mean Corpuscular Hgb 30.2 pg (27.0-31.0); Mean Corpuscular Volume 100.6 fL (81.0-99.0); Mean Platelet Volume 10.1 fL (7.4-10.4); Platelet Count 317 10^3/uL (130-400); Red Blood Cell Count 3.28 10^6/uL (4.20-5.40); White Blood Cell Count 7.9 10^3/uL (4.8-10.8)
[2024-01-27 07:24] LABS: Blood Urea Nitrogen 82 mg/dl (7-17); Calcium 8.6 mg/dl (8.4-10.2); Carbon Dioxide 26 mmol/L (22-30); Chloride 105 mmol/L (98-107); Estimated Creatinine Clearance 15 ml/min; Glucose 138 mg/dl (70-99); Magnesium 2.5 mg/dl (1.6-2.3); Phosphorus 6.6 mg/dl (2.5-4.5); Potassium 5.6 mmol/L (3.5-5.1); Sodium 142 mmol/L (135-145); eGFR 21.84
[2024-01-27 08:05] LABS: Glucose - Point of Care 124 mg/dl (70-99)
[2024-01-27] MEDS: NOVOLOG FLEXPEN-LOW RESISTANCE SC (08:12)
[2024-01-27] MEDS: PREVACID 30 MG PO (08:16)
[2024-01-27] MEDS: SENOKOT-S 2 TABLET PO (08:16)
[2024-01-27] MEDS: LOPRESSOR 75 MG PO (08:16)
[2024-01-27] MEDS: TRILEPTAL 600 MG PO (08:16)
[2024-01-27] MEDS: LASIX 60 MG PO (08:17)
[2024-01-27] MEDS: DUPHALAC/CHRONULAC 20 GRAMS PO (08:17)
[2024-01-27] MEDS: DESENEX/MITRAZOL/ZEASORB 1 APPLIC TOPICAL (08:17)
[2024-01-27] MEDS: MIRALAX 17 GRAMS PO (08:17)
--- NOTE | 2024-01-27 08:29 | W.PN.CD ---
Today's Communication / Plan
-
-Continue Lasix 60 mg PO daily.
-Metoprolol tartrate was increased to 75 mg PO BID yesterday with improvement in heart rates; continue.
-No further cardiac recommendations at this time; Cardiology will remain available on an as-needed basis.
Impression / Plan
-
83-year-old female with prior CVA, hypertension, dyslipidemia, COPD, seizure disorder, and dementia who presented to the emergency department yesterday with a chief complaint of shortness of breath. She was found to have pulmonary edema likely
acute.
Pulmonary edema
Acute heart failure weight goal 141 lbs / 65.45 kg; yesterday 64.9 kg
-Continue Lasix 60 mg PO daily.
Atrial fibrillation/flutter with RVR
-Metoprolol tartrate was increased to 75 mg PO BID yesterday with improvement in heart rates; continue.
-Adequate rate control may be challenging giving her borderline blood pressure; avoiding digoxin given her hyperkalemia and CKD.
-Oral Anticoagulation: Xarelto 15 mg, renally adjusted
-[id number]: score 6 (Heart failure, age 75 or more, prior Stroke/TIA, female gender)
Abnormal troponin, likely nonischemic myocardial injury in the setting of tachyarrhythmia
-Peak troponin 0.130
-Chest pain free
Abdominal pain, per primary
Hyperkalemia
CKD, follow with diuresis
Aortic stenosis, update echocardiogram 01/25/2024
Transient left bundle branch block
Prior CVA
PVCs
Hypertension, history of, not currently on any agents
Dementia
Physical Exam
Vital Signs/Labs
Vital Signs
Temp Pulse Resp BP Pulse Ox
97.3 F 93 20 114/64 100
01/27/24 07:00 01/27/24 07:00 01/27/24 07:00 01/27/24 07:00 01/27/24 07:00
01/26/24 01/27/24 01/28/24
06:59 06:59 06:59
Actual Weight 62.397 kg 60.47 kg
01/27/24 06:17
01/27/24 06:17
APTT Cancelled 01/24/24 23:00
Magnesium 2.5 mg/dl (1.6-2.3) H 01/27/24 06:17
01/22/24
18:11
[id number] Pept
Physical Exam
Constitutional: No acute distress and Comfortable
EENT: Anicteric
Cardiovascular: Pedal edema is absent, Rhythm/rate is irregular, Systolic murmur present (2/) and S1S2 is normal
Respiratory: Respiratory effort normal, Wheeze Absent and Other (Decreased bibasilar breath sounds)
GI: Soft
Neuro/Psych: Alert
Other: Skin (Warm, dry)
Data Reviewed
-
Date of Service: January 27, 2024
EKG: Tracing Personally Visualized and interpreted (Telemetry: Atrial fibrillation)
Labs: Labs Reviewed by me
--- NOTE | 2024-01-27 10:29 | CM ---
Addendum entered by June Wilson 01/27/24 14:44:
Rapid called for worsening condition
Hospice consult placed - referral sent in [facility]
Addendum entered by June Wilson 01/27/24 11:18:
Transport arranged for 1330
Carmen at [facility] aware
--Called and LM for sister Sandy [phone]
Original Note:
Case management following for d/c planning
Pt ready to return to [facility] per physician
Notified Carmen at [facility] - can accept today
Called pts sister Sandy - LM on - pt to return today
Plan - return to [facility]
R - [phone]
- [phone]
[2024-01-27 12:19] LABS: Glucose - Point of Care 158 mg/dl (70-99)
[2024-01-27] MEDS: NOVOLOG FLEXPEN-LOW RESISTANCE 1 UNITS SC (12:22)
[2024-01-27 13:05] LABS: Glucose - Point of Care 171 mg/dl (70-99)
--- NOTE | 2024-01-27 13:20 | PTCARENOTE ---
Pt SP02 dropped to 78% on 3L NC. Placed on 6L on went up to 82%. This RN messaged respiratory therapy as well as Dr. Baumann. Pt became diaphoretic. Vitals taken, BG taken, EKG done. Placed on 15L NRB mask and Rapid response called. Paid response team
arrived at bedside. See rapid response note.
--- NOTE | 2024-01-27 13:22 | W.PN.HOSP.TC ---
Today's Communication/Plan
-
Start comfort care measures only
Assessment / Plan
Assessment / Plan
A/P: Patient is a 83y F from [place] with PMH significant for ASCVD, prior CVA and dementia who presents to ED for evaluation of sudden onset of SOB / respiratory distress.
Rapid response
Acute hypoxic respiratory failure
-Patient was requiring 2-3 L of oxygen, now on 15 L nonrebreather
-Chest x-ray showed near complete opacification of the left hemithorax, which could represent consolidation and/or pleural effusion. Hazy opacity within the right lung suspicious for small to long moderate pleural effusion
-Appreciate pulmonology input, patient likely aspirated
-Her prognosis is poor. Appreciate pulmonology updating patient's sister/power of tire man
-Discussed with sister/power of tire man, Sandy, who agrees to transition her to comfort care measures only
-Stop blood draws, un-necessary medications, consult hospice for inpatient hospice
-Continue BiPAP so sister can come in and say goodbye
Pulmonary Edema
CHF - New Diagnosis
Acute kidney injury on stage 4 CKD
- CXR with pulmonary edema, BNP markedly elevated compared to prior.
- ECHO appreciated EF 74% Stage II diastolic dysfunction mild mod MR mild mod TR, compared to previous ECHO 09/2021 septal apical wall motion changed with new LBBB
Constipation
-KUB shows moderate amount of stool present from the right colon through the splenic flexure
-Resolved status post laxatives
Paroxysmal Atrial Fibrillation / Flutter
- Cardiology eval, status post heparin drip and Xarelto
- Continue IV metoprolol prn for comfort
LBBB
Non-ND related troponin elevation vs type II NSTEMI 2/2 heart failure
ASCVD
Hyperkalemia resolved w/ diuresis diet restriction
Dysphagia
Hx CVA w/ residual right sided deficits, aphasia, cognitive impairment
Speech eval appreciated Puree Olds thick diet, VSE pending, meds crushed in puree, aspiration protocol
Seizure Disorder
DVT prophylaxis�SCDs
DNR, comfort care measures only
Discussed with patient's sister/power of tire man�Sandy 01/26
Patient's brother Kyle Chery 2 years ago
Total time spent to see the patient on the floor, examine the patient, review data and lab results, discuss treatment plan with patient, nursing staff around 60 minutes.
Physical Exam
General: Obtunded
HEENT: Moist mucous membranes on nasal cannula PERRLA right sided facial droop appears baseline from prior stroke
Respiratory: Bibasilar Crackles
Cardiac: S1/S2, Irregularly Irregular
GI: Soft, Non Distended, Normal Bowel Sounds, Umbilical hernia soft reducible, abd tenderness noted
Musculoskeletal: No Clubbing, No Cyanosis and Other (Trace pedal edema.) Contracted right hand wrist appears baseline from prior stroke
Neuro: Awake and Alert; oriented only to self, short term memory issues, some aphasia noted relatively fluent speech
Skin: Cold and clammy
Anticipated Discharge: Within 24 hours
Subjective/Interval History
-
Date of Service: January 27, 2024
Patient seen and examined twice today. This morning, she appears comfortable, at her baseline. Then a rapid response was called for acute hypoxic respiratory failure, unresponsiveness.
Objective Data
-
Labs:
Laboratory Results
01/27/24
06:17
WBC 7.9
Hgb 9.9 L
Hct 33.0 L
Plt Count 317
Sodium Pending
Potassium Pending
Chloride Pending
Carbon Dioxide Pending
BUN Pending
Creatinine Pending
Glucose Pending
Calcium Pending
Vital Signs:
Vital Signs
Temp Pulse Resp BP Pulse Ox
97.6 F 91 24 129/64 99
01/27/24 03:34 01/27/24 06:22 01/27/24 06:22 01/27/24 03:34 01/27/24 06:22
I&O
01/26/24 01/27/24 01/28/24
06:59 06:59 06:59
Intake Total 120 / 120 450 / 450
Output Total 350 / 350 250 / 250
Balance -230 / -230 200 / 200
--- NOTE | 2024-01-27 13:34 | CON.PUL ---
Addendum entered and electronically signed by Vik Rosales MD 01/28/24 11:01:
Patient made comfort care shortly after my conversation with the sister, Sandy, after conversation held between the sister and Dr. Baumann, the primary hospitalist. Emotional support was provided to the family as well. Pulmonary service will now sign
off. Please reconsult if there are any additional questions or concerns.
Original Note:
Consultation
Consultation Request
Date/Time Consultation Requested: 01/27/2024 - 1313
Date/Time Consultation Performed: 01/27/2024 - 1329
Requesting Provider: Dr. Baumann
Performing Provider: Dr. Rosales
Reason for Consultation: Acute hypoxia
Medical History
-
Chief Complaint: SOB
History of Present Illness:
83-year-old female with past medical history of dementia, CVA with right-sided hemiparesis, CKD and hypertension who initially presented on 01/22/2024 with SOB. She was in respiratory distress in the ER requiring BiPAP. She was found to be in acute
CHF with hypertension requiring nitroglycerin drip which was then stopped due to hypotension. Patient was admitted to the hospitalist service and was diuresed well with improvement in her oxygen requirements. She had improved to 3 L/min and was
actually awaiting discharge on 01/27/2024. She was laying in bed when she suddenly became short of breath while on 3 L/min nasal cannula, and NRB was placed onto the patient with rapid response called. BiPAP then placed onto her as well at 12/5
cmH2O. CXR obtained showing whiteout of left-sided lung suspicious for atelectasis. Also hyperattenuation seen in the right hemithorax suspicious for atelectasis versus pleural fluid -official read is still pending. Pulmonary now consulted for
additional management/recommendation. Of note patient is DNR however family is still unable to be reached to discuss goals of care.
When I saw the patient she was in bed, responsive to her name but not interacting otherwise, on BiPAP 12/5 saturating 93%. Unable to obtain HPI from her given her acute clinical status in the setting of dementia.
PMHx: History of CVA with right-sided hemiparesis, dementia, hypertension, CKD
PSHx: History of PTCA s/p stent
Past Medical History
Past Medical History: Other (Above as per HPI)
Past Surgical History: Other (Above as per HPI)
Social History
Tobacco: Non-smoker
Alcohol: None
Drug: None
Family History
Family History: Unable to Obtain
Allergies / Home Medications
Allergies
Allergy/AdvReac Type Severity Reaction Status Date / Time
No Known Drug Allergies Allergy Unknown Verified 01/22/24 18:14
Home Medications
�Medication �Instructions �Recorded �Confirmed �Last Taken �Type
atorvastatin 40 mg tablet 40 mg PO HS High cholesterol 09/07/10 01/22/24 01/02/12 20:00 History
acetaminophen 325 mg tablet 650 mg PO Q4H PRN mild pain,temp>99 03/28/19 01/22/24 Unknown History
ergocalciferol (vitamin D2) 1,250 50,000 units PO MONTHLY Supplement 03/28/19 01/22/24 Unknown History
mcg (50,000 unit) capsule
albuterol sulfate 90 mcg/actuation 2 puff inhalation R QID 09/05/21 01/22/24 Unknown History
aerosol inhaler Lung/breathing issues
ferrous sulfate 325 mg (65 mg 325 mg PO DAILY anemia 09/19/21 01/22/24 Unknown History
iron) tablet,delayed release
ascorbic acid (vitamin C) 500 mg 500 mg PO DAILY Supplement 01/02/24 01/22/24 Unknown History
capsule
docusate sodium 100 mg capsule 200 mg PO DAILY Constipation 01/02/24 01/22/24 Unknown History
guaifenesin 400 mg tablet 400 mg PO Q4H PRN cough 01/02/24 01/22/24 Unknown History
loperamide 2 mg capsule 2 mg PO Q4H PRN diarrhea 01/02/24 01/22/24 Unknown History
(Anti-Diarrheal (loperamide))
trolamine salicylate 10 % topical 1 applic topical Q6H PRN b/l neck 01/02/24 01/22/24 Unknown History
cream (Aspercreme) pain/stiffness
coal tar 2.5 % shampoo 1 applic topical WESA Skin Issues 01/22/24 01/22/24 Unknown History
magnesium hydroxide 400 mg/5 mL 30 ml PO HS PRN if no bm x 3 days 01/22/24 01/22/24 Unknown History
oral suspension (Milk of Magnesia)
oxcarbazepine 600 mg tablet 600 mg PO BID Seizures 01/22/24 01/22/24 Unknown History
furosemide 20 mg tablet 60 mg (3 x 20 mg) PO DAILY #0 tabs 01/27/24 Unknown Rx
metoprolol tartrate 50 mg tablet 75 mg (1.5 x 50 mg) PO BID #0 tabs 01/27/24 Unknown Rx
miconazole nitrate 2 % topical 1 applic topical BID #0 grams 01/27/24 Unknown Rx
powder (Miconazorb AF)
polyethylene glycol 3350 17 gram 17 g PO BID #0 ea 01/27/24 Unknown Rx
oral powder packet (HealthyLax)
rivaroxaban 15 mg tablet (Xarelto) 15 mg PO QPM #0 tabs 01/27/24 Unknown Rx
Review of Systems
-
Unable to Obtain full review of systems at this time due to: Dementia and Acuity
Vitals / Labs / Diagnostic Testing
Vital Signs
Temp Pulse Resp BP Pulse Ox
98.0 F 85 22 124/61 98
01/27/24 11:00 01/27/24 11:00 01/27/24 11:00 01/27/24 11:00 01/27/24 11:00
Microbiology
01/22/24 18:42 Blood/Venous Blood Culture - Preliminary
No Growth in 4 days- Final report to follow
01/22/24 18:43 Blood/Venous Blood Culture - Preliminary
No Growth in 4 days- Final report to follow
Diagnostic Testing:
Physical Exam
-
HEENT: Normocephalic and Anicteric
Cardiovascular: S1/S2 and Peripheral Edema (Negative)
Respiratory: Wheeze (Negative), Rales (Lower lobes bilaterally), Accessory Resp Muscle Use (While on BiPAP via full facemask) and Other (Reduced breath sounds bilaterally (R >L))
GI: Soft, Non Distended and Non Tender
Neurology: Awake and Other (Responsive to voice but otherwise not interacting)
Skin: Warm and Dry
General: Respiratory Distress
Assessment
-
Assessment: 83-year-old female with past medical history of dementia, CVA with right-sided hemiparesis, CKD and hypertension who initially presented on 01/22/2024 with SOB. She was in respiratory distress in the ER requiring BiPAP. She was found to
be in acute CHF with hypertension requiring nitroglycerin drip which was then stopped due to hypotension. Patient was admitted to the hospitalist service and was diuresed well with improvement in her oxygen requirements. She had improved to 3
L/min and was actually awaiting discharge on 01/27/2024. She was laying in bed when she suddenly became short of breath while on 3 L/min nasal cannula, and NRB was placed onto the patient with rapid response called. BiPAP then placed onto her as
well at 12/5 cmH2O. CXR obtained showing whiteout of left-sided lung suspicious for atelectasis. Also hyperattenuation seen in the right hemithorax suspicious for atelectasis versus pleural fluid -official read is still pending. Pulmonary now
consulted for additional management/recommendation. Of note patient is DNR however family is still unable to be reached to discuss goals of care.
Chronic conditions RV TECHNICIAN: History of CVA with right-sided hemiparesis, dementia, hypertension, CKD
Impression:
#Acute hypoxia due to acute aspiration event +/- mucous plugging involving L-hemithorax
#Acute on chronic hypercapnic respiratory failure
#Acute kidney injury
#Recent acute decompensated heart failure with bilateral interstitial edema with stage II diastolic dysfunction, chronic HFpEF and valvular heart disease with mild�moderate MR, TR, and moderate pulmonary hypertension
#History of CVA
#Dementia
Plan:
- Pt is hypercapnic and hypoxic, and is at severe aspiration risk. Being on BiPAP is actually causing more harm given her mental status and high risk of aspiration. She needs to be transitioned to comfort care
- Family unfortunately are unavailable - we will keep trying. I called the sister x2 and there was no answer - V/M left. Brother's # is a busy signal
- Try nasotracheal suctioning and keep HOB elevated at >45 degrees
- Keep strict NPO for now
- Would give morphine if needed while we continue to try contacting the family
- Aspiration precautions
- Hold off on additional diuresis as she appears to be at or below her dry weight (64.9kg as per cardiology) and she has an EVELINE
- Renally dose all medications
- Trend UOP and sCr
- Maintain SpO2 >90-94% with supplemental O2 as needed
- Replete electrolytes with K>4, Mg>2
- Maintain euglycemia with goal BG >100 and <180
- prn nebulized bronchodilators
- DVT ppx
Code status: DNR/DNI
Pulmonary service will continue to follow along.
Total time spent today was 75 minutes for this encounter. Time includes reviewing laboratory test/imaging results, reviewing pertinent medical records, obtaining and reviewing medical history, performing an appropriate exam, ordering medications,
tests and procedures. Time also includes documentation of this encounter, coordinating patient care and communicating with other healthcare professionals. Total time does not include separately billed tests performed on this date of service.
Data:
CXR 01-27-2024:
Near complete opaification of the LEFT hemithorax. No tracheal shift to suggest left-sided volume loss. Findings likely representing combination of airspace consolidation and/or large pleural effusion.
Hazy opacity within the RIGHT lung suspicious for small to moderate layering pleural effusion
[2024-01-27 13:38] LABS: B.E. -0.8 mmol/L; HCO3 28.5 mmol/L (21-28); O2 Saturation % 91.3 % (94-98)
[2024-01-27 13:41] LABS: O2 Therapy 15 L
[2024-01-27 13:44] LABS: PCO2 73 mmHg (32-35); PO2 59 mmHg (83-108)
--- NOTE | 2024-01-27 14:10 | W.PN.UPDATE ---
Update Note
Progress Note Update
I called and spoke with Sandy, the patient's sister. I explained that critically ill state that Yumi is in from suspected acute aspiration with suspected acute CHF despite her being diuresed last several days with improvement seen up until this
AM. Given that she is now on BiPAP which is imposing a high risk onto her given her continued risk of aspiration, I advised Sandy to come to hospital as soon as possible as it appears Yumi only has minutes to hours left, although exact timing of
her remaining clinical course is difficult to predict. Sandy was upset, and says she is '80 years old and lives in [place],' so it is difficult for her to get here as she does not drive. She will call her daughter's and try to get here as soon as she
can. I answered all her questions and she verbalized understanding.
[2024-01-27 14:26] LABS: ALT (SGPT) 35 U/L (0-35); AST (SGOT) 33 U/L (14-36); Albumin 3.4 g/dl (3.5-5.0); Alkaline Phosphatase 94 U/L (38-126); Blood Urea Nitrogen 80 mg/dl (7-17); Calcium 8.4 mg/dl (8.4-10.2); Carbon Dioxide 22 mmol/L (22-30); Chloride 109 mmol/L (98-107); Estimated Creatinine Clearance 14 ml/min; Glucose 152 mg/dl (70-99); Potassium 5.7 mmol/L (3.5-5.1); Sodium 142 mmol/L (135-145); Total Bilirubin 0.4 mg/dl (0.2-1.3); Total Protein 6.7 g/dl (6.3-8.2)
[2024-01-27 14:40] LABS: NT-proBNP > 27000 pg/ml; Troponin I 0.074 ng/ml
[2024-01-27 14:40] LABS: D-Dimer 4.12 ug/mlFEU (0.00-0.50)
--- NOTE | 2024-01-27 14:56 | HOSPNOTE ---
Hospice consult received. Will reach out to sister. Patient will need to be inpatient hospice.
[2024-01-27] MEDS: TRANSDERM-SCOP 1 PATCH TRANSDERM (15:07)
[2024-01-27 16:16] LABS: % Basophils 0.1 % (0-2); % Immature Granulocytes 0.5 % (0-0.5); % Lymphocytes 5.1 % (20.5-51.1); % Monocytes 5.6 % (1.7-9.3); % Neutrophils 88.7 % (42.2-75.2); Absolute Immature Granulocytes 0.1 10^3/uL (0-0.05); Absolute Lymphocytes 0.5 10^3/uL (1.2-3.4); Absolute Monocytes 0.6 10^3/uL (0.1-0.6); Absolute Neutrophils 8.8 10^3/uL (1.4-6.5); Hematocrit 33.7 % (37.0-47.0); Hemoglobin 10.2 g/dL (12.0-16.0); Mean Corp Hgb Conc. 30.3 g/dL (33.0-37.0); Mean Corpuscular Hgb 30.2 pg (27.0-31.0); Mean Corpuscular Volume 99.7 fL (81.0-99.0); Mean Platelet Volume 9.8 fL (7.4-10.4); Nucleated Red Blood Cells % 0 %; Platelet Count 323 10^3/uL (130-400); Red Blood Cell Count 3.38 10^6/uL (4.20-5.40); White Blood Cell Count 9.9 10^3/uL (4.8-10.8)
[2024-01-27 18:11] LABS: Glucose - Point of Care 123 mg/dl (70-99)
[2024-01-28 00:26] VITALS: PULSE 1; PULSE 103
[2024-01-28] MEDS: MORPHINE SULFATE 2 MG IV ×5 (01:04→12:59)
[2024-01-28] MEDS: FLUSH (NSS) 1 FLUSH IV (01:06)
[2024-01-28] MEDS: FLUSH (NSS) 2 FLUSH IV (06:06)
[2024-01-28 07:51] VITALS: BP 131/70
[2024-01-28 08:25] LABS: Glucose - Point of Care 81 mg/dl (70-99)
--- NOTE | 2024-01-28 10:44 | HOSPNOTE ---
Patient will be signing onto inpatient hospice today. Admissions was called, Attending aware and case management aware of plan.
--- NOTE | 2024-01-28 11:05 | CM ---
Case management following for d/c planning
Pt signing onto IP Hospice today
Receiving comfort care at present time
--- NOTE | 2024-01-28 13:05 | PTCARENOTE ---
RN called patients sister to see if she was going to come visit patient and update her on plan of care. Pt's sister does not think she will be able to make it to see her sister at all but that she would see if patients niece who works in [employer]
can stop by after work today to see her.
--- NOTE | 2024-01-28 13:13 | W.DCSUMMARY ---
Discharge Summary
Discharge Data
Date of Admission: 01/22/24
Date of Discharge: 01/28/24
-
Pending Results: No
Hospital Course
Discharge diagnosis:
Rapid response
Acute hypoxic and hypercapnic respiratory failure
Pulmonary Edema
Hyperkalemia
New onset congestive heart failure
Acute kidney injury on stage 4 chronic kidney disease
Constipation
Paroxysmal Atrial Fibrillation / Flutter
Left bundle branch block
Coronary artery disease
Hyperkalemia resolved w/ diuresis diet restriction
Seizure disorder
Dysphagia
History of stroke w/ residual right sided deficits, aphasia, cognitive impairment
Hospital course:
83-year-old female with a past medical history of dementia, CVA with right-sided hemiparesis, CKD and hypertension was admitted to [facility] on 01/22/2024 secondary to acute heart failure with pulmonary edema. She was diuresed with IV
Lasix, then transitioned to oral Lasix. She was at her baseline condition medically, and was planned to be discharged back to her senior care on 01/27/2024. However, she went into hypoxic and hypercapnic respiratory failure, requiring BiPAP. She
was seen in conjunction with pulmonology. Chest x-ray showed near complete opacification of the left hemithorax, as well as hazy opacity within the right lung suspicious for small to large moderate pleural effusion. Pulmonology suspected she
aspirated, and she is high risk for sepsis and pneumonia. Patient has a history of CVA with residual right-sided hemiparesis, aphasia, and dysarthria. Discussion was held with the patient's power of energy attorney/sister, Sandy on 01/27/2024 who agreed
to transition her to comfort care measures only. She is discharged to inpatient hospice for comfort care measures only.
Disposition: Discharged to inpatient hospice
Discharge Plan
-
Patient Disposition: Hospice - Inpatient
Discharge Diagnosis/Procedures: Congestive heart failure, pulmonary edema, constipation, paroxysmal atrial fibrillation/flutter, left bundle branch block, coronary artery disease
Condition: Fair
Diet: 2 Gram Sodium and Restrict fluids to 64 oz
Additional Diets: Pur�ed diet with honey thickened liquids
Activity: As tolerated
Specialty Instructions: Weigh Daily- Call MD for wt gain/loss 3 lbs overnight/5 lbs in 1 week
Instructions: *PCP/Other Composite Worker Heart Failure Instructions
Referrals:
John Laguna I., DO [Family Provider] - in one week
Additional Discharge Medication Instructions:
1. Continue IDDSI Level 4 and downgrade to Moderately thick liquids
2. Meds crushed in applesauce
3. Supervision
4. Assist to feed
5. Aspiration precautions.
6. Clean mouth after meals.
Prescriptions:
New
polyethylene glycol 3350 [HealthyLax] 17 gram Powder In Packet
17 g PO BID Qty: 0 0RF
metoprolol tartrate 50 mg Tablet
75 mg PO BID Qty: 0 0RF
furosemide 20 mg Tablet
60 mg PO DAILY Qty: 0 0RF
Xarelto 15 mg Tablet
15 mg PO QPM Qty: 0 0RF
miconazole nitrate [Miconazorb AF] 2 % Powder
1 applic topical BID Qty: 0 0RF
Continued
atorvastatin 40 MG tablet
40 mg PO HS
acetaminophen 325 MG tablet
650 mg PO Q4H PRN (Reason: mild pain,temp>99)
ergocalciferol (vitamin D2) 50,000 capsule
50,000 units PO MONTHLY
Patient Comments:
01/22/2024: 17th of every month
albuterol sulfate 1 PUFF HFA aerosol inhaler
2 puff inhalation R QID
ferrous sulfate 325 MG tablet,delayed release (DR/EC)
325 mg PO DAILY
loperamide [Anti-Diarrheal (loperamide)] 2 mg Capsule
2 mg PO Q4H PRN (Reason: diarrhea)
docusate sodium 100 mg Capsule
200 mg PO DAILY
trolamine salicylate [Aspercreme] 10 % Cream
1 applic TOPICAL Q6H PRN (Reason: b/l neck pain/stiffness)
guaifenesin 400 mg Tablet
400 mg PO Q4H PRN (Reason: cough)
ascorbic acid (vitamin C) 500 mg Capsule
500 mg PO DAILY
magnesium hydroxide [Milk of Magnesia] 400 mg/5 mL Suspension
30 ml PO HS PRN (Reason: if no bm x 3 days)
oxcarbazepine 600 mg tablet
600 mg PO BID
coal tar 2.5 % Shampoo
1 applic TOPICAL WESA
Discontinued
aspirin 81 MG tablet,chewable
81 mg PO DAILY
Discharge Date and Time
Discharge Date/Time: 01/28/24 13:00
Print Language: SYRIAC
== END 2024-01-28 13:00 | disposition hospice, inpatient (51) | DRG 291 ==
LOC: 3 WEST ACU 20:30
PROVIDERS: Internal Medicine; Physician Assistant; ADMITTING PHYSICIAN Hospitalist; ATTENDING PHYSICIAN Family Medicine; CONSULT PHYSICIAN Internal Medicine Cardiovascular Disease; CONSULT PHYSICIAN Internal Medicine Critical Care Medicine; EMERGENCY PHYSICIAN Emergency Medicine; FAMILY PHYSICIAN Internal Medicine
PROC: 5A09357 Assistance with Respiratory Ventilation, Less than 24 Consecutive Hours, Continuous Positive Airway Pressure (ICD-10-PCS; 2024-01-22)
DX: I13.0 Hypertensive heart and chronic kidney disease with heart failure and stage 1 through stage 4 chronic kidney disease, or unspecified chronic kidney disease (principal); I50.31 Acute diastolic (congestive) heart failure; J96.22 Acute and chronic respiratory failure with hypercapnia; J96.21 Acute and chronic respiratory failure with hypoxia; I48.92 Unspecified atrial flutter; I69.351 Hemiplegia and hemiparesis following cerebral infarction affecting right dominant side; N18.4 Chronic kidney disease, stage 4 (severe); J98.11 Atelectasis; N17.9 Acute kidney failure, unspecified; Z51.5 Encounter for palliative care; I5A Non-ischemic myocardial injury (non-traumatic); F03.90 Unspecified dementia, unspecified severity, without behavioral disturbance, psychotic disturbance, mood disturbance, and anxiety; I48.0 Paroxysmal atrial fibrillation; I44.7 Left bundle-branch block, unspecified; E87.5 Hyperkalemia; J44.9 Chronic obstructive pulmonary disease, unspecified; I73.9 Peripheral vascular disease, unspecified; I35.0 Nonrheumatic aortic (valve) stenosis; G40.909 Epilepsy, unspecified, not intractable, without status epilepticus; E78.00 Pure hypercholesterolemia, unspecified; I95.2 Hypotension due to drugs; T46.3X5A Adverse effect of coronary vasodilators, initial encounter; Y92.239 Unspecified place in hospital as the place of occurrence of the external cause; K59.00 Constipation, unspecified; I69.320 Aphasia following cerebral infarction; R13.10 Dysphagia, unspecified; I25.10 Atherosclerotic heart disease of native coronary artery without angina pectoris; Z66 Do not resuscitate; I25.2 Old myocardial infarction; Z95.5 Presence of coronary angioplasty implant and graft; Z87.19 Personal history of other diseases of the digestive system; Z11.52 Encounter for screening for COVID-19
CPT/HCPCS: 71045; 74018; 74230; 76770; 80048; 80053; 82805; 82962; 83036; 83605; 83735; 83880; 84100; 84443; 84484; 85025; 85027; 85379; 85730; 87040; 87502; 87811; 92610; 92611; 93005; 93306; 94640; 94660; 96374; 96375; 97163; 97167; 97530; 99285

== ENCOUNTER 2024-01-28 13:01 | Inpatient (IN) | payer OTHER, SELFPAY ==
--- NOTE | 2024-01-28 13:14 | HPS.HSE ---
Family Physician
-
Family Physician: INTERVIEWE UNKNOWN - PT NOT
Chief Complaint
-
Hospice
History of Present Illness
83-year-old female with past medical history of dementia, CVA with right-sided hemiparesis, CKD and hypertension who initially was admitted to [facility] on 01/22/2024 secondary to acute heart failure with pulmonary edema. She was diuresed
with IV Lasix, then transitioned to oral Lasix. She was at her baseline condition medically, and was planned to be discharged back to her retirement on 01/27/2024. However, she went into hypoxic and hypercapnic respiratory failure, requiring
BiPAP. She was seen in conjunction with pulmonology. Chest x-ray showed near complete opacification of the left hemithorax, as well as hazy opacity within the right lung suspicious for small to large moderate pleural effusion. Pulmonology
suspected she aspirated, and she is high risk for sepsis and pneumonia. Patient has a history of CVA with residual right-sided hemiparesis, aphasia, and dysarthria. Discussion was held with the patient's power of system admin/sister, Sandy on
01/27/2024 who agreed to transition her to comfort care measures only.
Medical History
Past Medical History
Past Medical History: Reports Other
Additional Past Medical History:
ASCVD
CVA with R Hemiparesis
Senile Dementia
Hypertension
CKD IV
Past Surgical History: Reports Other
Additional Past Surgical History:
PTCA with Stent
Social History
Unable to obtain full social history at this time due to: Dementia
Family History
Family History: Unable to Obtain
Allergies / Home Medications
Allergies reflects when Allergies were last updated in [facility].
Home Medications with original date entered in [facility]
Allergy/Medication List:
Allergies
Allergy/AdvReac Type Severity Reaction Status Date / Time
No Known Drug Allergies Allergy Unknown Verified 01/22/24 18:14
Home Medications Table - record
�Medication �Instructions �Recorded �Confirmed
atorvastatin 40 mg tablet 40 mg PO HS High cholesterol 09/07/10 01/22/24
acetaminophen 325 mg tablet 650 mg PO Q4H PRN mild pain,temp>99 03/28/19 01/22/24
ergocalciferol (vitamin D2) 1,250 50,000 units PO MONTHLY Supplement 03/28/19 01/22/24
mcg (50,000 unit) capsule
albuterol sulfate 90 mcg/actuation 2 puff inhalation R QID 09/05/21 01/22/24
aerosol inhaler Lung/breathing issues
ferrous sulfate 325 mg (65 mg 325 mg PO DAILY anemia 09/19/21 01/22/24
iron) tablet,delayed release
ascorbic acid (vitamin C) 500 mg 500 mg PO DAILY Supplement 01/02/24 01/22/24
capsule
docusate sodium 100 mg capsule 200 mg PO DAILY Constipation 01/02/24 01/22/24
guaifenesin 400 mg tablet 400 mg PO Q4H PRN cough 01/02/24 01/22/24
loperamide 2 mg capsule 2 mg PO Q4H PRN diarrhea 01/02/24 01/22/24
(Anti-Diarrheal (loperamide))
trolamine salicylate 10 % topical 1 applic topical Q6H PRN b/l neck 01/02/24 01/22/24
cream (Aspercreme) pain/stiffness
coal tar 2.5 % shampoo 1 applic topical WESA Skin Issues 01/22/24 01/22/24
magnesium hydroxide 400 mg/5 mL 30 ml PO HS PRN if no bm x 3 days 01/22/24 01/22/24
oral suspension (Milk of Magnesia)
oxcarbazepine 600 mg tablet 600 mg PO BID Seizures 01/22/24 01/22/24
furosemide 20 mg tablet 60 mg (3 x 20 mg) PO DAILY #0 tabs 01/27/24
metoprolol tartrate 50 mg tablet 75 mg (1.5 x 50 mg) PO BID #0 tabs 01/27/24
miconazole nitrate 2 % topical 1 applic topical BID #0 grams 01/27/24
powder (Miconazorb AF)
polyethylene glycol 3350 17 gram 17 g PO BID #0 ea 01/27/24
oral powder packet (HealthyLax)
rivaroxaban 15 mg tablet (Xarelto) 15 mg PO QPM #0 tabs 01/27/24
Review of Systems
-
Unable to obtain full review of systems at this time due to: Dementia
Physical Exam
Physical Exam
General: No Apparent Distress
HEENT: NormoCephalic, Anicteric and Other (Dry mucous membranes)
Respiratory: Crackles
Cardiac: S1/S2 and Regular Rhythm
GI: Soft, Non Tender and Non Distended
Musculoskeletal: No Clubbing, No Cyanosis, Edema, Left Lower Extremity and Edema, Right Lower Extremity
Neuro: Other (Chronic aphasia, chronic right-sided hemiparesis)
Psych: Calm
Impression/Plan
-
Rapid response
Acute hypoxic and hypercapnic respiratory failure
-Chest x-ray showed near complete opacification of the left hemithorax, which could represent consolidation and/or pleural effusion. Hazy opacity within the right lung suspicious for small to long moderate pleural effusion
-Appreciate pulmonology input, patient likely aspirated
-Her prognosis is poor. Appreciate pulmonology updating patient's sister/power of system admin 01/26
-Discussed with sister/power of system admin, Sandy, who agrees to transition her to comfort care measures only 01/26
-Admit to inpatient hospice, comfort care measures only
-Continue pur�ed nectar thickened diet for comfort
Pulmonary Edema
Hyperkalemia
CHF - New Diagnosis
Acute kidney injury on stage 4 CKD
Constipation
Paroxysmal Atrial Fibrillation / Flutter
LBBB
Non-OH related troponin elevation vs type II NSTEMI 2/2 heart failure
ASCVD
Hyperkalemia resolved w/ diuresis diet restriction
Seizure disorder
Dysphagia
Hx CVA w/ residual right sided deficits, aphasia, cognitive impairment
DVT prophylaxis�SCDs
DNR, comfort care measures only
Discussed with patient's sister/power of system admin�Sandy 01/26
Patient's brother Kyle Chery 2 years ago
[2024-01-28 13:19] VITALS: BP 139/74
[2024-01-28] MEDS: MORPHINE SULFATE 2 MG IV ×3 (14:30→21:13)
--- NOTE | 2024-01-28 14:52 | PTCARENOTE ---
RN called patients sister to see if she or any other family members can come by to see patient, as she is on comfort care measures at this time. Sister said she is unable to come visit and might not be able to visit before her sister passes as she
no longer drives, lives in [place], and doesn't have anyone she can ask to pick her up. She said the best thing she can do is ask the patients niece who lives in [place] to come visit patient after she gets off work today.
--- NOTE | 2024-01-28 19:13 | HOSPNOTE ---
Unable to sign this patient onto Hospice today because family members were unable to come to the hospital and did not have the ability to sign consents via email. Did speak with the patients sister this evening. The patients niece will call into
the hospice office in the morning ( 01/28 )and discuss the possibility of signing the hospice consents via email.
[2024-01-28 19:57] VITALS: BP 120/75
[2024-01-28] MEDS: ATIVAN 1 MG IV (21:37)
[2024-01-28] MEDS: NSS (PRESERVATIVE FREE) 0.5 ML IV (21:38)
[2024-01-28] MEDS: FLUSH (NSS) 2 FLUSH IV (21:40)
--- NOTE | 2024-01-28 21:56 | PTCARENOTE ---
Pt appeared anxious touching face and sheets.Asked pt if she felt anxious and pt stated ,'yes' with yes head nod.Administered Ativan 1mg IV @2137.
[2024-01-29] MEDS: MORPHINE SULFATE 2 MG IV ×2 (01:28→04:43)
[2024-01-29] MEDS: FLUSH (NSS) 2 FLUSH IV ×2 (01:35→04:48)
[2024-01-29] MEDS: ROBINUL 0.200000000000000011 MG IV (03:31)
[2024-01-29] MEDS: FLUSH (NSS) 1 FLUSH IV (03:34)
--- NOTE | 2024-01-29 03:40 | PTCARENOTE ---
@0331;Robinul 0.2 mg IV given for excessive secretions.
--- NOTE | 2024-01-29 05:23 | PTCARENOTE ---
Pt is touch sensitive and would say No when touching her or attempting to turn pt this shift.
--- NOTE | 2024-01-29 07:26 | W.PN.DEATH ---
Pronouncement of
-
Called to see patient to pronounce.
No spontaneous heart tones or respirations noted.
Patient not responsive to verbal stimuli.
Patient is pronounced .
Time of : 07:22
Date of : 01/29/24
Cause of : Acute hypoxic and hypercapnic respiratory failure with associated aspiration
Family Notified: No
--- NOTE | 2024-01-29 07:30 | W.PN.UPDATE ---
Update Note
Progress Note Update
I tried calling (using all the available phone numbers on the patient's chart) the patient's family, in order to inform them of the patient's passing, but no one answered the phone.
--- NOTE | 2024-01-29 08:10 | W.DCSUMMARY ---
Discharge Summary
Discharge Data
Date of Admission: 01/28/24
Date of Discharge: 01/29/24
-
Pending Results: No
Hospital Course
Date of expiration: 01/29/2024
Time of expiration: 07:22
Discharge diagnosis:
Acute hypoxic and hypercapnic respiratory failure
Suspected aspiration
Pulmonary Edema
Hyperkalemia
New onset congestive heart failure
Acute kidney injury on stage 4 chronic kidney disease
Constipation
Paroxysmal Atrial Fibrillation / Flutter
Left bundle branch block
Coronary artery disease
Hyperkalemia resolved w/ diuresis diet restriction
Seizure disorder
Dysphagia
History of stroke w/ residual right sided deficits, aphasia, cognitive impairment
Hospital course:
83-year-old female with a past medical history of dementia, CVA with right-sided hemiparesis, CKD and hypertension was admitted to [facility] on 01/22/2024 secondary to acute heart failure with pulmonary edema. She was diuresed with IV
Lasix, then transitioned to oral Lasix. She was at her baseline condition medically, and was planned to be discharged back to her [place] [facility] on 01/27/2024. However, she went into hypoxic and hypercapnic respiratory failure, requiring BiPAP. She
was seen in conjunction with pulmonology. Chest x-ray showed near complete opacification of the left hemithorax, as well as hazy opacity within the right lung suspicious for small to large moderate pleural effusion. Pulmonology suspected she
aspirated, and she is high risk for sepsis and pneumonia. Patient has a history of CVA with residual right-sided hemiparesis, aphasia, and dysarthria. Discussion was held with the patient's power of collections attorney/sister, Sandy on 01/27/2024 who agreed
to transition her to comfort care measures only. She was transitioned to comfort care measures only on 01/27/2024, and peacefully on 01/29/2024. Her sister, Sandy, was notified. Condolences were offered.
Discharge Plan
-
Patient Disposition:
Date/Time
Date/Time: 01/29/24 08:28
Discharge Date and Time
Discharge Date/Time: 01/29/24 08:28
Print Language: YI
--- NOTE | 2024-01-29 08:10 | PTCARENOTE ---
RN was able to reach pt's sister via phone to relay news of patients passing
--- NOTE | 2024-01-29 08:11 | PTCARENOTE ---
RN was in the middle of shift change report when nursing manager alerted both nurses that patient appeared to be around 0650. Crossover hospitalist was notified and time of was declared at 0722. [employer] was called, pt was not a
candidate.
== END 2024-01-29 08:28 | disposition expired | DRG 951 ==
LOC: 3 WEST ACU 13:01
PROVIDERS: ADMITTING PHYSICIAN Family Medicine
DX: Z51.5 Encounter for palliative care (principal); J96.01 Acute respiratory failure with hypoxia; J96.02 Acute respiratory failure with hypercapnia; N18.4 Chronic kidney disease, stage 4 (severe); I69.351 Hemiplegia and hemiparesis following cerebral infarction affecting right dominant side; I13.0 Hypertensive heart and chronic kidney disease with heart failure and stage 1 through stage 4 chronic kidney disease, or unspecified chronic kidney disease; N17.9 Acute kidney failure, unspecified; F03.90 Unspecified dementia, unspecified severity, without behavioral disturbance, psychotic disturbance, mood disturbance, and anxiety; I50.9 Heart failure, unspecified; I44.7 Left bundle-branch block, unspecified; I48.0 Paroxysmal atrial fibrillation; I25.10 Atherosclerotic heart disease of native coronary artery without angina pectoris; G40.909 Epilepsy, unspecified, not intractable, without status epilepticus; E87.5 Hyperkalemia; I69.320 Aphasia following cerebral infarction; R13.10 Dysphagia, unspecified; Z66 Do not resuscitate; Z95.5 Presence of coronary angioplasty implant and graft